=== PATIENT | male | born 1960 | race American Indian/Alaskan Native ===

== ENCOUNTER 2018-02-20 17:31 | Emergency (ER) | payer OTHER, SELFPAY ==
[2018-02-20 18:05] VITALS: BP 131/77; PULSE 91; RESP 20; TEMP 37; O2SAT 97
--- NOTE | 2018-02-20 18:11 | DI.RAD.S_ITS ---
PROCEDURE: XR HAND LT MIN 3V INDICATIONS: smashed 5th digit while throwing wood TECHNIQUE: 3 views of the hand(s) acquired. COMPARISON: None. FINDINGS: Bones: Acute oblique fracture involving midshaft of fifth distal phalanx is seen with minimal volar displacement at fracture site. Carpal bones are normally aligned. No suspicious bony lesions. Soft tissues: No suspicious soft tissue calcifications. Soft tissue swelling around distal portion of fifth digit is seen. IMPRESSION: Acute minimally displaced fifth distal phalangeal shaft fracture. Dictated by: Fernando Arreola M.D. on 02/20/2018 at 19:01 Approved by: Fernando Arreola M.D. on 02/20/2018 at 19:02
--- NOTE | 2018-02-20 21:09 | ED_ITS ---
HPI - Extremity Injury (Upper) General Chief Complaint: Extremity Injury, Upper Stated Complaint: smashed pinky finger left hand Time Seen by Provider: 02/20/18 20:53 Source: patient Mode of arrival: ambulatory Limitations: no limitations History of Present Illness HPI narrative: 57-year-old every day smoker presents to the emergency department with a chief complaint of a work-related crush injury to his left 5th finger. He was moving heavy objects and crushed his finger between a wall and a big chunk of wood. He has pain with range of motion and small laceration on the pad of his finger. He has worsening pain with range of motion and improvement with rest. Denies numbness, tingling or weakness. His tetanus is current. He denies other injury and is otherwise well and free of complaint MD complaint: injury to: left Onset (ago): hour(s) Other Extremity Injury: Left: fingers Other injuries: none Handedness: left Place: work Severity: mild Relieving factors: rest Exacerbating factors: movement of extremity Context: direct blow Associated symptoms: denies other symptoms Related Data Home Medications Medication Instructions Recorded Confirmed levothyroxine 50 mcg PO QAM #0 07/18/17 Previous Rx's Medication Instructions Recorded metoprolol succinate [Toprol XL] 25 mg PO QDAY #30 ter 09/13/16 prazosin 0 PO SEE INSTRUCTIONS #150 cap 12/21/16 lorazepam 0.5 mg PO TIDP #150 tab 03/31/17 nitroglycerin [Nitrostat] 0.4 mg SUBLINGUAL PRN PRN #30 tab 03/31/17 fluoxetine 40 mg PO QDAY #60 cap 05/26/17 hydrocodone-acetaminophen [Clifford] 1 tab PO TIDP PRN #90 tab 06/27/17 cyclobenzaprine 10 mg PO Q8H PRN #10 tab 07/18/17 meloxicam [Mobic] 15 mg PO Q DAY PRN #30 tab 07/18/17 cephalexin [Keflex] 500 mg PO QID 7 Days #28 cap 02/20/18 Allergies Allergy/AdvReac Type Severity Reaction Status Date / Time morphine [MORPHINE] Allergy Severe CONVULSIONS, Verified 02/20/18 18:10 TROUBLE BREATHING codeine [CODEINE] Allergy Mild RASH, Verified 02/20/18 18:10 HIVES, ITCHING meperidine [MEPERIDINE] Allergy Mild NAUSEA, Verified 02/20/18 18:10 ITCHING, HIVES ibuprofen [IBUPROFEN] Allergy Unknown HIVES Verified 02/20/18 18:10 naproxen [NAPROXEN] Allergy Unknown HIVES Verified 02/20/18 18:10 Review of Systems Review of Systems All systems reviewed & are unremarkable except as noted in HPI and below Constitutional Denies chills, Denies fever(s), Denies lethargy and Denies weakness Eyes Denies change in vision, Denies eye discharge, Denies irritation and Denies loss of vision ENT Ears, Nose, Mouth, and Throat: Denies change in voice, Denies neck pain and Denies sore throat Cardiovascular Denies chest pain, Denies irregular heart rhythm, Denies lightheadedness, Denies palpitations, Denies dyspnea, Denies dyspnea on exertion and Denies orthopnea Respiratory Denies cough, Denies dyspnea, Denies dyspnea on exertion and Denies wheezing Gastrointestinal Gastrointestinal: Denies abdominal pain, Denies change in bowel habits, Denies diarrhea, Denies nausea and Denies vomiting Genitourinary Denies hematuria, Denies flank pain, Denies urinary incontinence and Denies urinary urgency Musculoskeletal Reports joint swelling, Reports limited range of motion and Denies neck pain Integumentary/Breasts Denies pruritus, Denies erythema, Denies rash and Reports wounds Neurologic Denies confusion, Denies loss of vision and Denies weakness Psychiatric Denies anxiety, Denies confusion, Denies depression, Denies homicidal ideation and Denies suicidal ideation Endocrine Denies palpitations Hematologic/Lymphatic Denies easy bruising Allergic/Immunologic Denies wheezing [facility] Social History Smoking Status: Current every day smoker Exam Narrative Exam Narrative: GEN: AOx3 and in mild distress EYES: Pupils are equal, round, and reactive to light and accommodation. Extraoccular muscles are intact bilaterally. There is no subconjunctival hemorrhage or exudate. CHEST: Lungs are clear to auscultation bilaterally and free of wheezes, rales, or rhonchi. Heart rate is regular rhythm, there are no murmurs, clicks, rubs, or gallops. There is no chest wall tenderness. ABD: Abdomen is soft and nontender. There is no guarding or rebound. Bowel sounds are normal in all 4 quadrants. There is no mass or organomegaly. EXT: Decreased range of motion of left 5th finger secondary to pain. There is some swelling to the tip of the finger but no damage to the nail. No subungual hematoma. Very small laceration on pad of finger, will not require sutures. SKIN: Warm, pink, and dry. No erythema or rash Initial Vital Signs Initial Vital Signs: Vital Signs Temperature 98.6 F 02/20/18 18:05 Pulse Rate 91 H 02/20/18 18:05 Respiratory Rate 20 02/20/18 18:05 Blood Pressure 131/77 02/20/18 18:05 Pulse Oximetry 97 02/20/18 18:05 Procedures Orthopedic Splinting/Casting Injury #1: Side: left Upper Extremity Injury Location: finger Upper Extremity Immobilizer: finger (other) Course Orders Ordered: ED Orders 02/20/18 18:11 XR hand LT min 3V Stat Discontinued Medications Hydrocodone Bitart/Acetaminophen (Clifford 5/325) 1 tab PO NOW ONE Stop: 02/20/18 21:27 Last Admin: 02/20/18 21:50 Dose: 1 tab Cefazolin Sodium (Keflex) 1 bottle MISC SEEINSTR ONE Stop: 02/20/18 21:06 Last Admin: 02/20/18 21:50 Dose: 2 cap Vital Signs - 8 hr 02/20/18 22:20 Temperature 98.1 F Pulse Rate 66 Respiratory Rate 15 Blood Pressure 123/82 Pulse Oximetry 98 Discharge Plan Departure Patient Disposition: Home Clinical Impression: Finger fracture, left Discharge Date/Time: 02/20/18 22:25 Interventions: ED Discharge Assessment Last Done: 02/20/18 22:20 Instructions: DI for Finger Fracture Activity Restrictions/Additional Instructions: *You have been diagnosed with [ left 5th finger fracture with small overlying laceration ] *What to do: *Take medications as directed: Your Keflex has been electronically transmitted to [facility] at your request *Follow up with your primary care provider in 2-3 days, call for an appointment. Let them know you were seen in the Emergency Department and that we ask that you be seen in follow up *Return to ER if you should have any new, worsening or concerning symptoms Prescriptions: New cephalexin [Keflex] 500 mg capsule 500 mg PO QID 7 Days Qty: 28 RF: 0 No Action metoprolol succinate [Toprol XL] 25 MG tablet extended release 24 hr 25 mg PO QDAY Qty: 30 RF: 11 prazosin 1 MG capsule PO SEE INSTRUCTIONS Qty: 150 RF: 5 nitroglycerin [Nitrostat] 0.4 MG tablet, sublingual 0.4 mg Sublingual PRN PRNQty: 30 RF: 11 lorazepam 0.5 MG tablet 0.5 mg PO TIDP Qty: 150 RF: 2 fluoxetine 20 MG capsule 40 mg PO QDAY Qty: 60 RF: 2 hydrocodone-acetaminophen [Clifford] 5 MG/325 MG tablet 1 tab PO TIDP PRNQty: 90 RF: 0 cyclobenzaprine 10 MG tablet 10 mg PO Q8H PRNQty: 10 RF: 0 meloxicam [Mobic] 15 MG tablet 15 mg PO Q DAY PRNQty: 30 RF: 0 levothyroxine 50 MCG tablet 50 mcg PO QAM Qty: 0 RF: 0 Referrals: Chance Stuart MD [Primary Care Provider] - Chad Marmolejo MD [Physician] - Stand Alone Forms: Work/School Restrictions
[2018-02-20] MEDS: cephALEXin 250 MG PREPACK 1 BOTTLE MISC (21:50)
[2018-02-20] MEDS: HYDROCODONE/ACET 5/325 TABLET 1 TAB PO (21:50)
[2018-02-20 22:20] VITALS: BP 123/82; PULSE 66; RESP 15; TEMP 36.7; O2SAT 98
== END 2018-02-20 22:25 | disposition home or self-care (01) ==
PROVIDERS: Emergency Provider Emergency Medicine; Family Provider Family Medicine; PCP Family Medicine
DX: S62.607A Fracture of unspecified phalanx of left little finger, initial encounter for closed fracture (principal); W23.0XXA Caught, crushed, jammed, or pinched between moving objects, initial encounter
CPT/HCPCS: 29130; 73130; 99282; 99283

== ENCOUNTER → 2018-05-09 10:29 | Outpatient (CLI) | payer MEDICAID, OTHER, SELFPAY ==
--- NOTE | 2018-05-09 | DI.RAD.S_ITS ---
PROCEDURE: XR FINGER LT MIN 2V INDICATIONS: L 5TH FINGER S/P FRACTURE, PERSISTENT PAIN TECHNIQUE: AP hand, 2 views of the fifth finger(s) acquired. COMPARISON: [facility], CR, XR FINGER(S) LEFT, 04/27/2018, 8:25. [facility], CR, XR HAND LT MIN 3V, 02/20/2018, 17:57. [facility], CR, XR FINGER(S) LEFT, 03/07/2018, 13:25. [facility], CR, XR FINGER LT MIN 2V, 08/30/2017, 13:30. FINDINGS: Bones: Oblique fracture through the midportion of the distal fifth phalanx is present. There is diastases of fracture fragments, relatively unchanged. There has been progressive sclerosis and callus formation. Soft tissues: No suspicious soft tissue calcifications. IMPRESSION: Continued interval healing of fifth distal phalanx fracture. Dictated by: Rosa Portillo M.D. on 05/09/2018 at 17:11 Approved by: Rosa Portillo M.D. on 05/09/2018 at 17:13
== END ==
PROVIDERS: Family Provider Family Medicine; Visit Provider Family Medicine
DX: M79.645 Pain in left finger(s) (principal); S62.637D Displaced fracture of distal phalanx of left little finger, subsequent encounter for fracture with routine healing
CPT/HCPCS: 73140

== ENCOUNTER 2018-05-13 21:43 | Emergency (ER) | payer MEDICAID, OTHER, SELFPAY ==
[2018-05-13 21:45] VITALS: BP 135/81; PULSE 74; RESP 17; TEMP 36.8; O2SAT 95; BMI 23.1
--- NOTE | 2018-05-13 21:54 | DI.RAD.S_ITS ---
PROCEDURE: XR CHEST 1V INDICATIONS: chest pain TECHNIQUE: One view of the chest was acquired. COMPARISON: [facility], , CHEST 2 VIEW, 09/06/2015, 18:16. FINDINGS: Surgical changes and devices: None. Lungs and pleura: No pleural effusions or pneumothorax. Lungs are clear. Mediastinum: Mediastinal contours appear normal. Heart size is normal. Bones and chest wall: No suspicious bony lesions. Overlying soft tissues appear unremarkable. IMPRESSION: No acute cardiopulmonary pathology. Dictated by: Fernando Arreola M.D. on 05/14/2018 at 10:04 Approved by: Fernando Arreola M.D. on 05/14/2018 at 10:04
--- NOTE | 2018-05-13 21:54 | DI.RAD.S_ITS ---
PROCEDURE: XR LUMBAR SPINE 2-3V INDICATIONS: severe midline back pain TECHNIQUE: 3 views of the lumbar spine were acquired. COMPARISON: [facility], , L-SPINE 2-3 VIEWS, 09/06/2015, 18:09. FINDINGS: Bones: 5 [id number] vertebrae are present. There is minimal retrolisthesis of L2 on L3. Degenerative disc disease and bilateral facet arthrosis throughout lumbar spine is seen more prominent at L4-5 and L5-S1 levels. No vertebral body compression fractures. No suspicious bony lesions. Chronic appearing anterior wedge compression deformity at T12 level is seen with 10% loss of T12 vertebral body height anteriorly. Soft tissues: Overlying bowel gas pattern is normal. No suspicious soft tissue calcifications. IMPRESSION: Degenerative disc disease throughout lumbar spine. No acute compression fracture. Likely degenerative grade 1 retrolisthesis of L2 on L3. Chronic appearing mild anterior wedge compression involving superior endplate of T12. Dictated by: Fernando Arreola M.D. on 05/14/2018 at 10:04 Approved by: Fernando Arreola M.D. on 05/14/2018 at 10:07
--- NOTE | 2018-05-13 21:58 | ED_ITS ---
HPI - Back Pain/Injury General Chief Complaint: Chest Pain Stated Complaint: cramps in chest and back pain Time Seen by Provider: 05/13/18 21:51 Source: patient Mode of arrival: wheelchair Limitations: no limitations History of Present Illness HPI Narrative: 58-year-old male, daily smoker with history of heart and back trouble presents with severe back pain that started while dancing this evening with friends and family. He denies any specific direct trauma but complains of severe lower back pain with any motion. He has no trouble with bowel or bladder control. He denies numbness, tingling or weakness. His pain is worse when he moves and improves with rest. He does have some chest pain associated and states this has been happening for some time. He denies shortness of breath and is not dizzy nor weak or lightheaded. He has already had Vicodin, marijuana and some kind of muscle relaxer. MD Complaint: back pain Onset (ago): minute(s) Duration: constant Similar Symptoms Previously: Yes Location: lumbar spine Severity: moderate Quality: aching Radiation: none Relieving factors: immobilization Exacerbating factors: movement Related Data Home Medications Medication Instructions Recorded Confirmed levothyroxine 50 mcg PO QAM #0 07/18/17 Previous Rx's Medication Instructions Recorded metoprolol succinate [Toprol XL] 25 mg PO QDAY #30 ter 09/13/16 prazosin 0 PO SEE INSTRUCTIONS #150 cap 12/21/16 lorazepam 0.5 mg PO TIDP #150 tab 03/31/17 nitroglycerin [Nitrostat] 0.4 mg SUBLINGUAL PRN PRN #30 tab 03/31/17 fluoxetine 40 mg PO QDAY #60 cap 05/26/17 hydrocodone-acetaminophen [[place]] 1 tab PO TIDP PRN #90 tab 06/27/17 cyclobenzaprine 10 mg PO Q8H PRN #10 tab 07/18/17 meloxicam [Mobic] 15 mg PO Q DAY PRN #30 tab 07/18/17 lidocaine 1 patch TOP DAILY #15 each 05/14/18 Allergies Allergy/AdvReac Type Severity Reaction Status Date / Time morphine [MORPHINE] Allergy Severe CONVULSIONS, Verified 02/20/18 18:10 TROUBLE BREATHING codeine [CODEINE] Allergy Mild RASH, Verified 02/20/18 18:10 HIVES, ITCHING meperidine [MEPERIDINE] Allergy Mild NAUSEA, Verified 02/20/18 18:10 ITCHING, HIVES ibuprofen [IBUPROFEN] Allergy Unknown HIVES Verified 02/20/18 18:10 naproxen [NAPROXEN] Allergy Unknown HIVES Verified 02/20/18 18:10 Review of Systems Constitutional Denies chills, Denies fever(s), Denies lethargy and Denies weakness Eyes Denies change in vision, Denies eye discharge, Denies irritation and Denies loss of vision ENT Ears, Nose, Mouth, and Throat: Denies change in voice, Denies neck pain and Denies sore throat Cardiovascular Reports chest pain, Denies irregular heart rhythm, Denies lightheadedness, Denies palpitations, Denies dyspnea, Denies dyspnea on exertion and Denies orthopnea Respiratory Denies cough, Denies dyspnea, Denies dyspnea on exertion and Denies wheezing Gastrointestinal Gastrointestinal: Denies abdominal pain, Denies change in bowel habits, Denies diarrhea, Denies nausea and Denies vomiting Genitourinary Denies hematuria, Denies flank pain, Denies urinary incontinence and Denies urinary urgency Musculoskeletal Reports back pain and Denies neck pain Integumentary/Breasts Denies pruritus, Denies erythema, Denies rash and Denies wounds Neurologic Denies confusion, Denies loss of vision and Denies weakness Psychiatric Denies anxiety, Denies confusion, Denies depression, Denies homicidal ideation and Denies suicidal ideation Endocrine Denies palpitations Hematologic/Lymphatic Denies easy bruising Allergic/Immunologic Denies wheezing [facility] Social History Smoking Status: Current every day smoker Exam Narrative Exam Narrative: GENERAL: 58-year-old male is somnalent but easily arousable HEAD: Atraumatic. Normocephalic. No temporal or scalp tenderness. EYES: Pupils equal round and reactive. Extraocular motions intact. No scleral icterus. No injection or drainage. ENT: Nose without bleeding, purulent drainage or septal hematoma. Throat without erythema, tonsillar hypertrophy or exudate. Uvula midline. Airway patent. NECK: Trachea midline. No JVD or lymphadenopathy. Supple, nontender, no meningeal signs. CARDIOVASCULAR: Regular rate and rhythm without murmurs, gallops, or rubs. RESPIRATORY: Clear to auscultation. Breath sounds equal bilaterally. No wheezes , rales, or rhonchi. GASTROINTESTINAL: Abdomen soft, non-tender, nondistended. No hepato-splenomegaly , or palpable masses. No guarding. EXTREMITIES: No clubbing, cyanosis, or edema. No joint tenderness, effusion, or edema noted. 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 Patient exam notes decreased range of motion and muscle spasm, but no CVA tenderness, or vertebral point tenderness. There are no symptoms of cauda equina such as saddle anesthesia, and decreased reflexes, decreased sensation or strength. NEURO: AOx3. SKIN: No rash or erythema. Initial Vital Signs Initial Vital Signs: Vital Signs Temperature 98.2 F 05/13/18 21:45 Pulse Rate 74 05/13/18 21:45 Respiratory Rate 17 05/13/18 21:45 Blood Pressure 135/81 05/13/18 21:45 Pulse Oximetry 95 05/13/18 21:45 Course Orders Ordered: ED Orders 05/13/18 21:54 XR chest 1V Stat XR lumbar spine 2-3V Stat EKG-12 Lead Stat 05/13/18 22:10 Complete Blood Count AUTO DIFF Stat Comprehensive Metabolic Panel Stat Lipase Stat Troponin & CK Cardiac Panel Stat Discontinued Medications Aspirin (Aspirin Chew) 324 mg PO NOW ONE Stop: 05/13/18 21:55 Last Admin: 05/13/18 22:25 Dose: 324 mg Sodium Chloride (Normal Saline 0.9%) 1,000 mls @ 150 mls/hr IV CONT GREY Last Infusion: 05/14/18 01:04 Dose: 0 mls/hr Admin: 05/13/18 22:24 Dose: 150 mls/hr Ketorolac Tromethamine (Toradol) 15 mg IV NOW ONE Stop: 05/14/18 00:06 Last Admin: 05/14/18 00:14 Dose: 15 mg Vital Signs - 8 hr 05/14/18 01:05 Pulse Rate 66 Respiratory Rate 17 Blood Pressure 128/77 Pulse Oximetry 96 MDM - Back Pain/Injury Lab Data Result diagrams: 05/13/18 22:10 05/13/18 22:10 Lab Results 05/13/18 05/13/18 Range/Units 22:10 22:10 WBC 10.3 (4.5-11.0) X10^3/uL RBC 4.65 (4.5-5.9) X10^6/uL Hgb 13.8 (13.5-17.5) g/dL Hct 40.5 L (41-53) % MCV 87.0 (80-100) fL MCH 29.7 (26-34) PG MCHC 34.2 (30-36) % RDW 13.9 (11.6-14.8) % Plt Count 319 (150-400) X10^3/uL Neut % (Auto) 59.4 (50-75) % Lymph % (Auto) 33.8 (25-40) % [place] % (Auto) 5.1 (3-14) % Eos % (Auto) 1.0 L (2-4) % Baso % (Auto) 0.7 (0-2) % Neut # (Auto) 6100 (0246-4708) /uL Lymph # (Auto) 3500 (9251-0638) /uL [place] # (Auto) 500 (0-900) /uL Eos # (Auto) 100 (0-450) /uL Baso # (Auto) 100 (0-100) /uL Sodium 143 (137-145) mmol/L Potassium 3.9 (3.4-5.1) mmol/L Chloride 104 (98-107) mmol/L Carbon Dioxide 27 (22-32) mmol/L BUN 14 (9-20) mg/dL Creatinine 1.00 (0.66-1.25) mg/dL Estimated GFR > 60.0 (>60) mL/min BUN/Creatinine Ratio 14.0 (6-22) Glucose 97 (70-100) mg/dL Calcium 9.1 (8.4-10.2) mg/dL Total Bilirubin 0.4 (0.2-1.3) mg/dL AST 26 (17-59) IU/L ALT 26 (21-72) IU/L Alkaline Phosphatase 79 (38-126) U/L Total Creatine Kinase 131 (55-170) U/L CK-MB (CK-2) 1.82 (<2.37) ng/mL CK-MB (CK-2) Rel Index 1.4 L (1.5-5.0) % Troponin I < 0.012 (0.01-0.034) ng/mL Total Protein 7.9 (6.3-8.2) g/dL Albumin 4.2 (3.5-5.0) g/dL Globulin 3.7 (1.7-4.1) g/dL Albumin/Globulin Ratio 1.1 (1.0-2.8) Lipase 160 (23-300) U/L Discharge Plan Departure Patient Disposition: Home Clinical Impression: Lumbar back pain Discharge Date/Time: 05/14/18 01:00 Interventions: ED Discharge Assessment Last Done: 05/14/18 01:05 Instructions: DI for Low Back Pain Activity Restrictions/Additional Instructions: *You have been diagnosed with [ lumbar pain ] *What to do: *Take medications as directed: prescription electronically transmitted to [facility] *Follow up with your primary care provider in 2-3 days, call for an appointment. Let them know you were seen in the Emergency Department and that we ask that you be seen in follow up *Return to ER if you should have any new, worsening or concerning symptoms Prescriptions: New lidocaine 5 % adhesive patch,medicated 1 patch TOP DAILY Qty: 15 RF: 0 No Action metoprolol succinate [Toprol XL] 25 MG tablet extended release 24 hr 25 mg PO QDAY Qty: 30 RF: 11 prazosin 1 MG capsule PO SEE INSTRUCTIONS Qty: 150 RF: 5 nitroglycerin [Nitrostat] 0.4 MG tablet, sublingual 0.4 mg Sublingual PRN PRNQty: 30 RF: 11 lorazepam 0.5 MG tablet 0.5 mg PO TIDP Qty: 150 RF: 2 fluoxetine 20 MG capsule 40 mg PO QDAY Qty: 60 RF: 2 hydrocodone-acetaminophen [[place]] 5 MG/325 MG tablet 1 tab PO TIDP PRNQty: 90 RF: 0 cyclobenzaprine 10 MG tablet 10 mg PO Q8H PRNQty: 10 RF: 0 meloxicam [Mobic] 15 MG tablet 15 mg PO Q DAY PRNQty: 30 RF: 0 levothyroxine 50 MCG tablet 50 mcg PO QAM Qty: 0 RF: 0 Referrals: Chance Stuart MD [Primary Care Provider] -
[2018-05-13 22:18] LABS: Add Manual Diff / Slide Review NO; Basophils Absolute Auto 100 /uL (0-100); Basophils Percent Auto 0.7 % (0-2); Eosinophils Absolute Auto 100 /uL (0-450); Hematocrit 40.5 % (41-53); Hemoglobin 13.8 g/dL (13.5-17.5); Lymphocytes Absolute Auto 3500 /uL (1100-4500); Lymphocytes Percent Auto 33.8 % (25-40); Mean Corpuscular HGB Conc 34.2 % (30-36); Mean Corpuscular Hemoglobin 29.7 PG (26-34); Monocytes Absolute Auto 500 /uL (0-900); Monocytes Percent Auto 5.1 % (3-14); Neutrophils Absolute Auto 6100 /uL (1500-7000); Neutrophils Percent Auto 59.4 % (50-75); Platelet Count 319 X10^3/uL (150-400); Red Blood Cell Count 4.65 X10^6/uL (4.5-5.9); Red Cell Distribution Width 13.9 % (11.6-14.8); White Blood Cell Count 10.3 X10^3/uL (4.5-11.0)
[2018-05-13] MEDS: SODIUM CHLORIDE 0.9% 1,000 ML 150 ML IV (22:24)
[2018-05-13] MEDS: ASPIRIN 81 MG TAB 324 MG PO (22:25)
[2018-05-13 22:29] LABS: Alanine Aminotransferase 26 IU/L (21-72); Albumin 4.2 g/dL (3.5-5.0); Albumin Globulin Ratio 1.1 (1.0-2.8); Alkaline Phosphatase 79 U/L (38-126); Aspartate Aminotransferase 26 IU/L (17-59); Bilirubin Total 0.4 mg/dL (0.2-1.3); Blood Urea Nitrogen 14 mg/dL (9-20); Calcium 9.1 mg/dL (8.4-10.2); Carbon Dioxide 27 mmol/L (22-32); Chloride 104 mmol/L (98-107); Creatine Kinase 131 U/L (55-170); Estimated Glomerular Filt Rate > 60.0 mL/min (>60); Globulin 3.7 g/dL (1.7-4.1); Glucose 97 mg/dL (70-100); HEMOLYSIS < 15 (0-50); Lipase 160 U/L (23-300); Potassium 3.9 mmol/L (3.4-5.1); Sodium 143 mmol/L (137-145); Total Protein 7.9 g/dL (6.3-8.2)
[2018-05-13 22:41] LABS: Troponin I < 0.012 ng/mL (0.01-0.034)
[2018-05-13 22:44] LABS: CKMB % Relative Index 1.4 % (1.5-5.0); Creatine Kinase MB 1.82 ng/mL (<2.37)
[2018-05-14] MEDS: KETOROLAC 60 MG/2 ML VIAL 15 MG IV (00:14)
[2018-05-14 01:05] VITALS: BP 128/77; PULSE 66; RESP 17; O2SAT 96
== END 2018-05-14 01:00 | disposition home or self-care (01) ==
PROVIDERS: Emergency Provider Emergency Medicine; Family Provider Family Medicine; PCP Family Medicine
DX: M54.5 Low back pain (principal)
CPT/HCPCS: 36591; 71045; 72100; 80053; 82550; 82553; 83690; 84484; 85025; 93005; 93010; 96361; 96374; 99283; 99285; J1885

== ENCOUNTER 2018-05-19 23:20 | Emergency (ER) | payer MEDICAID, OTHER, SELFPAY ==
[2018-05-19 23:25] VITALS: BP 118/65; PULSE 72; RESP 18; TEMP 36.6; O2SAT 100
[2018-05-19] MEDS: NALOXONE 1 MG/ML SYRINGE 0.2 MG IV (23:47)
[2018-05-19] MEDS: SODIUM CHLORIDE 0.9% 1,000 ML 1000 ML IV (23:47)
[2018-05-20 00:08] LABS: Add Manual Diff / Slide Review NO; Basophils Absolute Auto 0 /uL (0-100); Basophils Percent Auto 0.4 % (0-2); Eosinophils Absolute Auto 300 /uL (0-450); Eosinophils Percent Auto 3.2 % (2-4); Hematocrit 38.8 % (41-53); Hemoglobin 13.3 g/dL (13.5-17.5); Lymphocytes Absolute Auto 2300 /uL (1100-4500); Lymphocytes Percent Auto 21.5 % (25-40); Mean Corpuscular HGB Conc 34.2 % (30-36); Mean Corpuscular Hemoglobin 29.7 PG (26-34); Mean Corpuscular Volume 86.7 fL (80-100); Monocytes Absolute Auto 600 /uL (0-900); Monocytes Percent Auto 5.6 % (3-14); Neutrophils Absolute Auto 7400 /uL (1500-7000); Neutrophils Percent Auto 69.3 % (50-75); Platelet Count 277 X10^3/uL (150-400); Red Blood Cell Count 4.47 X10^6/uL (4.5-5.9); Red Cell Distribution Width 13.9 % (11.6-14.8); White Blood Cell Count 10.7 X10^3/uL (4.5-11.0)
[2018-05-20 00:13] LABS: Lactate (Lactic Acid) < 0.5 mmol/L (0.7-2.1)
[2018-05-20 00:14] LABS: Acetaminophen < 10 ug/mL (10-30); Alanine Aminotransferase 24 IU/L (21-72); Albumin Globulin Ratio 1.2 (1.0-2.8); Alkaline Phosphatase 85 U/L (38-126); Aspartate Aminotransferase 26 IU/L (17-59); BUN Creatinine Ratio 13.8 (6-22); Bilirubin Total 0.6 mg/dL (0.2-1.3); Blood Urea Nitrogen 11 mg/dL (9-20); Calcium 8.6 mg/dL (8.4-10.2); Carbon Dioxide 27 mmol/L (22-32); Chloride 103 mmol/L (98-107); Estimated Glomerular Filt Rate > 60.0 mL/min (>60); Ethanol (ETOH) < 10 mg/dL; Globulin 3.4 g/dL (1.7-4.1); Glucose 97 mg/dL (70-100); HEMOLYSIS < 15 (0-50); Potassium 3.8 mmol/L (3.4-5.1); Salicylate < 1.0 mg/dL (<20); Sodium 138 mmol/L (137-145); Total Protein 7.4 g/dL (6.3-8.2)
[2018-05-20 00:26] LABS: Lipase 96 U/L (23-300)
[2018-05-20 01:20] VITALS: BP 94/56; PULSE 69; RESP 19; O2SAT 95
[2018-05-20 02:08] VITALS: BP 101/69; PULSE 59; RESP 12; O2SAT 95
[2018-05-20 03:12] VITALS: BP 118/60; PULSE 60; RESP 18; O2SAT 98
[2018-05-20 04:10] VITALS: BP 99/66; PULSE 66; RESP 21; TEMP 36.3; O2SAT 94
--- NOTE | 2018-05-20 05:09 | ED.AMS ---
HPI - Altered Mental Status General Chief Complaint: Altered Mental Status Stated Complaint: LOC Time Seen by Provider: 05/19/18 23:37 Source: patient and EMS Mode of arrival: EMS History of Present Illness HPI narrative: Patient is a 58-year-old male who presents with decreasing mental status. He admits to using heroin and smokes it but denies using recently. He is is part of the methadone clinic he went today. noticed that he had decreasing mental status. Awake alert not requiring Narcan for EMS. His he is tired but easily arousable. He is very thin. He denies any fever chills nausea or vomiting. He is an extremely poor historian. Difficult to get information from. MD complaint: altered mental status and confusion Related Data Home Medications Medication Instructions Recorded Confirmed levothyroxine 50 mcg PO QAM #0 07/18/17 Previous Rx's Medication Instructions Recorded metoprolol succinate [Toprol XL] 25 mg PO QDAY #30 ter 09/13/16 prazosin 0 PO SEE INSTRUCTIONS #150 cap 12/21/16 lorazepam 0.5 mg PO TIDP #150 tab 03/31/17 nitroglycerin [Nitrostat] 0.4 mg SUBLINGUAL PRN PRN #30 tab 03/31/17 fluoxetine 40 mg PO QDAY #60 cap 05/26/17 hydrocodone-acetaminophen [[place]] 1 tab PO TIDP PRN #90 tab 06/27/17 cyclobenzaprine 10 mg PO Q8H PRN #10 tab 07/18/17 meloxicam [Mobic] 15 mg PO Q DAY PRN #30 tab 07/18/17 lidocaine 1 patch TOP DAILY #15 each 05/14/18 Allergies Allergy/AdvReac Type Severity Reaction Status Date / Time morphine [MORPHINE] Allergy Severe CONVULSIONS, Verified 02/20/18 18:10 TROUBLE BREATHING codeine [CODEINE] Allergy Mild RASH, Verified 02/20/18 18:10 HIVES, ITCHING meperidine [MEPERIDINE] Allergy Mild NAUSEA, Verified 02/20/18 18:10 ITCHING, HIVES ibuprofen [IBUPROFEN] Allergy Unknown HIVES Verified 02/20/18 18:10 naproxen [NAPROXEN] Allergy Unknown HIVES Verified 02/20/18 18:10 Review of Systems Review of Systems ROS Unobtainable: All systems reviewed & are unremarkable except as noted in HPI and below Constitutional Denies chills, Denies fever(s), Denies lethargy and Denies weakness Cardiovascular Denies dyspnea and Denies dyspnea on exertion Respiratory Denies cough, Denies dyspnea, Denies dyspnea on exertion and Denies wheezing Gastrointestinal Gastrointestinal: Denies abdominal pain, Denies change in bowel habits, Denies diarrhea, Denies nausea and Denies vomiting Musculoskeletal Denies back pain, Denies muscle weakness, Denies numbness and Denies tingling Integumentary/Breasts Denies pruritus, Denies erythema, Denies rash and Denies wounds Neurologic Denies numbness, Denies tingling and Denies weakness Allergic/Immunologic Denies wheezing Exam Initial Vital Signs Initial Vital Signs: Vital Signs Temperature 97.9 F 05/19/18 23:25 Pulse Rate 72 05/19/18 23:25 Respiratory Rate 18 05/19/18 23:25 Blood Pressure 118/65 05/19/18 23:25 Pulse Oximetry 100 05/19/18 23:25 Const General: cooperative and intoxicated appearing Nutritional Appearance: malnourished Orientation: alert, awake and oriented x3 HENMT Head: normal to inspection, normocephalic and atraumatic Nose: external nose normal Mouth: oral mucosae normal Eyes General: appearance normal, both eyes and all related structures Neck Neck: normal visual inspection and full ROM Chest Chest: normal inspection of the chest and normal palpation of entire chest wall Resp Effort & Inspection: normal respiratory effort, able to speak in complete sentences, no respiratory distress and no use of accessory muscles Auscultation: clear to auscultation bilaterally, no rales, no rhonchi and no wheezes Cardio Rate: regular rate Rhythm: regular rhythm Heart Sounds: no click, no gallops, no murmurs and no rubs Pulses: normal peripheral pulses Extrem General: full ROM, no clubbing, cyanosis or edema, no pedal edema and no calf tenderness Course Orders Ordered: ED Orders 05/19/18 23:50 Acetaminophen Stat Complete Blood Count AUTO DIFF Stat Comprehensive Metabolic Panel Stat Ethanol (ETOH) Stat Lactate (Lactic Acid) Stat Lipase Stat Salicylate Stat 05/20/18 05:20 Urine Drug Screen, Rapid Stat Discontinued Medications Sodium Chloride (Normal Saline 0.9%) 1,000 mls @ 1,000 mls/hr IV CONT GREY Last Infusion: 05/20/18 03:44 Dose: 0 mls/hr Admin: 05/19/18 23:47 Dose: 1,000 mls/hr Naloxone HCl (Narcan) 0.2 mg IV PRN PRN PRN Reason: Opiate Reversal Last Admin: 05/19/18 23:47 Dose: 0.2 mg Vital Signs - 8 hr 05/19/18 23:25 05/20/18 01:20 05/20/18 02:08 Temperature 97.9 F Pulse Rate 72 69 59 L Respiratory Rate 18 19 12 Blood Pressure 118/65 Blood Pressure [Left Arm] 94/56 L 101/69 Pulse Oximetry 100 95 95 05/20/18 03:12 05/20/18 04:10 05/20/18 05:30 Temperature 97.3 F L Pulse Rate 60 66 64 Respiratory Rate 18 21 17 Blood Pressure Blood Pressure [Left Arm] 118/60 99/66 113/63 Pulse Oximetry 98 94 94 MDM - Altered Mental Status Lab Data Attestation: I reviewed the patient's lab results. Result diagrams: 05/19/18 23:50 05/19/18 23:50 Lab Results 05/19/18 05/19/18 05/19/18 Range/Units 23:50 23:50 23:50 WBC 10.7 (4.5-11.0) X10^3/uL RBC 4.47 L (4.5-5.9) X10^6/uL Hgb 13.3 L (13.5-17.5) g/dL Hct 38.8 L (41-53) % MCV 86.7 (80-100) fL MCH 29.7 (26-34) PG MCHC 34.2 (30-36) % RDW 13.9 (11.6-14.8) % Plt Count 277 (150-400) X10^3/uL Neut % (Auto) 69.3 (50-75) % Lymph % (Auto) 21.5 L (25-40) % [place] % (Auto) 5.6 (3-14) % Eos % (Auto) 3.2 (2-4) % Baso % (Auto) 0.4 (0-2) % Neut # (Auto) 7400 H (6726-4192) /uL Lymph # (Auto) 2300 (1620-0350) /uL [place] # (Auto) 600 (0-900) /uL Eos # (Auto) 300 (0-450) /uL Baso # (Auto) 0 (0-100) /uL Sodium 138 (137-145) mmol/L Potassium 3.8 (3.4-5.1) mmol/L Chloride 103 (98-107) mmol/L Carbon Dioxide 27 (22-32) mmol/L BUN 11 (9-20) mg/dL Creatinine 0.80 (0.66-1.25) mg/dL Estimated GFR > 60.0 (>60) mL/min BUN/Creatinine Ratio 13.8 (6-22) Glucose 97 (70-100) mg/dL Lactate (0.7-2.1) mmol/L Calcium 8.6 (8.4-10.2) mg/dL Total Bilirubin 0.6 (0.2-1.3) mg/dL AST 26 (17-59) IU/L ALT 24 (21-72) IU/L Alkaline Phosphatase 85 (38-126) U/L Total Protein 7.4 (6.3-8.2) g/dL Albumin 4.0 (3.5-5.0) g/dL Globulin 3.4 (1.7-4.1) g/dL Albumin/Globulin Ratio 1.2 (1.0-2.8) Lipase 96 (23-300) U/L Salicylates < 1.0 (<20) mg/dL Urine Opiates Screen (Negative) Ur Oxycodone Screen (Negative) Urine Methadone Screen (Negative) Acetaminophen < 10 L (10-30) ug/mL Ur Barbiturates Screen (Negative) U Tricyclic Antidepress (Negative) Ur Phencyclidine Scrn (Negative) Ur Amphetamines Screen (Negative) U Methamphetamines Scrn (Negative) Ur MDMA Scrn (Ecstasy) (Negative) U Benzodiazepines Scrn (Negative) Urine Cocaine Screen (Negative) U Marijuana (THC) Screen (Negative) Ethyl Alcohol < 10 mg/dL 05/19/18 05/20/18 Range/Units 23:50 05:20 WBC (4.5-11.0) X10^3/uL RBC (4.5-5.9) X10^6/uL Hgb (13.5-17.5) g/dL Hct (41-53) % MCV (80-100) fL MCH (26-34) PG MCHC (30-36) % RDW (11.6-14.8) % Plt Count (150-400) X10^3/uL Neut % (Auto) (50-75) % Lymph % (Auto) (25-40) % [place] % (Auto) (3-14) % Eos % (Auto) (2-4) % Baso % (Auto) (0-2) % Neut # (Auto) (9368-2884) /uL Lymph # (Auto) (6527-7813) /uL [place] # (Auto) (0-900) /uL Eos # (Auto) (0-450) /uL Baso # (Auto) (0-100) /uL Sodium (137-145) mmol/L Potassium (3.4-5.1) mmol/L Chloride (98-107) mmol/L Carbon Dioxide (22-32) mmol/L BUN (9-20) mg/dL Creatinine (0.66-1.25) mg/dL Estimated GFR (>60) mL/min BUN/Creatinine Ratio (6-22) Glucose (70-100) mg/dL Lactate < 0.5 L (0.7-2.1) mmol/L Calcium (8.4-10.2) mg/dL Total Bilirubin (0.2-1.3) mg/dL AST (17-59) IU/L ALT (21-72) IU/L Alkaline Phosphatase (38-126) U/L Total Protein (6.3-8.2) g/dL Albumin (3.5-5.0) g/dL Globulin (1.7-4.1) g/dL Albumin/Globulin Ratio (1.0-2.8) Lipase (23-300) U/L Salicylates (<20) mg/dL Urine Opiates Screen Negative (Negative) Ur Oxycodone Screen Negative (Negative) Urine Methadone Screen Positive H (Negative) Acetaminophen (10-30) ug/mL Ur Barbiturates Screen Negative (Negative) U Tricyclic Antidepress Negative (Negative) Ur Phencyclidine Scrn Negative (Negative) Ur Amphetamines Screen Negative (Negative) U Methamphetamines Scrn Negative (Negative) Ur MDMA Scrn (Ecstasy) Negative (Negative) U Benzodiazepines Scrn Negative (Negative) Urine Cocaine Screen Negative (Negative) U Marijuana (THC) Screen Positive H (Negative) Ethyl Alcohol mg/dL MDM Narrative Medical decision making narrative: The patient was given a small dose of Narcan. He was set up to the CO2 monitor initial readings were 47. After the small dose of Narcan it did drop to 30's-40's. I did speak with she was highly suspicious of more opiate use. At this time it did not have his drug screen back. Based on symptoms and his mild improvement in Narcan I would also agree however methadone can also react to this as well. At this time patient is ambulatory to the restroom no sign of infection or other source of change in mental status. The he has no focal or signs more data head CT. Discharge Plan Departure Patient Disposition: Home Clinical Impression: Acute metabolic encephalopathy Discharge Date/Time: 05/20/18 05:45 Interventions: ED Discharge Assessment Last Done: 05/20/18 06:09 Instructions: DI for Drug Overdose in Adults Activity Restrictions/Additional Instructions: *You have been diagnosed with change in mental status now resolved *What to do: Blood work does not show any source of infection *Continue to take medications as directed *Follow up with your primary care provider in 2-3 days *Return to ER if you should have any new, worsening or concerning symptoms Prescriptions: No Action metoprolol succinate [Toprol XL] 25 MG tablet extended release 24 hr 25 mg PO QDAY Qty: 30 RF: 11 prazosin 1 MG capsule PO SEE INSTRUCTIONS Qty: 150 RF: 5 nitroglycerin [Nitrostat] 0.4 MG tablet, sublingual 0.4 mg Sublingual PRN PRNQty: 30 RF: 11 lorazepam 0.5 MG tablet 0.5 mg PO TIDP Qty: 150 RF: 2 fluoxetine 20 MG capsule 40 mg PO QDAY Qty: 60 RF: 2 hydrocodone-acetaminophen [[place]] 5 MG/325 MG tablet 1 tab PO TIDP PRNQty: 90 RF: 0 cyclobenzaprine 10 MG tablet 10 mg PO Q8H PRNQty: 10 RF: 0 meloxicam [Mobic] 15 MG tablet 15 mg PO Q DAY PRNQty: 30 RF: 0 levothyroxine 50 MCG tablet 50 mcg PO QAM Qty: 0 RF: 0 lidocaine 5 % adhesive patch,medicated 1 patch TOP DAILY Qty: 15 RF: 0
[2018-05-20 05:30] VITALS: BP 113/63; PULSE 64; RESP 17; O2SAT 94
[2018-05-20 06:40] LABS: Urine Amphetamines Negative (Negative); Urine Barbiturates Negative (Negative); Urine Benzodiazepines Negative (Negative); Urine Cocaine Negative (Negative); Urine MDMA Negative (Negative); Urine Methadone Positive (Negative); Urine Methamphetamines Negative (Negative); Urine Morphine/Opi cutoff 2000 Negative (Negative); Urine Oxycodone Negative (Negative); Urine Phencyclidine Negative (Negative); Urine Tetrahydrocannabinol Positive (Negative); Urine Tricyclic Antidepressant Negative (Negative)
== END 2018-05-20 05:45 | disposition home or self-care (01) ==
PROVIDERS: Emergency Provider Emergency Medicine; Family Provider Family Medicine; PCP Family Medicine
DX: G93.41 Metabolic encephalopathy (principal)
CPT/HCPCS: 36415; 80053; 80305; 80320; 80329; 83605; 83690; 85025; 96361; 96374; 99283; 99284; G0480; J2310

== ENCOUNTER 2018-08-25 12:23 | Emergency (ER) | payer MEDICAID, OTHER, SELFPAY ==
[2018-08-25 12:27] VITALS: BP 113/81; PULSE 66; RESP 18; TEMP 36.7; O2SAT 97
--- NOTE | 2018-08-25 12:39 | DI.CT.S_ITS ---
PROCEDURE: CT LUMBAR SPINE WO CON INDICATIONS: lumbar pain, possible injury TECHNIQUE: Noncontrast 3 mm thick sections acquired from the T12 level to the sacrum. Sagittal and coronal reformats were constructed. For radiation dose reduction, the following was used: automated exposure control. COMPARISON: [facility], CT, KIDNEY/ URETER/BLADDER, 07/18/2017, 11:07. [facility], CR, XR LUMBAR SPINE 2-3V, 05/13/2018, 22:15. FINDINGS: Image quality: Diagnostic. Bones: There are 5 lumbar-type vertebral bodies. The lowest intervertebral disk space is designated as L5-S1. There is a chronic appearing T12 compression deformity. Otherwise, the remainder of the vertebral body heights are well-maintained without evidence to suggest an acute compression fracture. The bone mineralization is within normal limits. Moderate to severe multilevel degenerative changes of the lumbar spine are present demonstrating multilevel disc height loss, and discussed with the complexes, vacuum disc phenomenon, and facet arthrosis. These findings are more prominent involving the lower lumbar levels. Severe areas of neural foraminal stenosis are evident on the right at the levels of L4-5 and L5-S1. Soft tissues: The soft tissues of the imaged abdomen and pelvis are within normal limits. IMPRESSION: 1. No acute osseous abnormality of the lumbar spine. 2. Moderate to severe degenerative changes of the lumbar spine. 3. Chronic appearing T12 compression deformity. Dictated by: Davey Robles M.D. on 08/25/2018 at 12:24 Approved by: Davey Robles M.D. on 08/25/2018 at 12:32
--- NOTE | 2018-08-25 12:40 | DI.CT.S_ITS ---
PROCEDURE: CT HEAD/BRAIN WO CON INDICATIONS: mental status change TECHNIQUE: Noncontrast 4.5 mm thick angled axial sections acquired from the foramen magnum to the vertex, with coronal and sagittal reformats. For radiation dose reduction, the following was used: automated exposure control, adjustment of mA and/or kV according to patient size. COMPARISON: [facility], CT, CT HEAD WITHOUT CONTRAST, 03/25/2017, 19:45. FINDINGS: Image quality: Diagnostic. CSF spaces: Basal cisterns are patent. No extra-axial fluid collections. Ventricles are normal in size and shape. Brain: No midline shift. No intracranial masses or hemorrhage. Charles-white matter interface is normal. Skull and face: Calvarium and visualized facial bones are intact, without suspicious lesions. Sinuses: Visualized sinuses and mastoids are clear. IMPRESSION: Unremarkable head CT. No acute intracranial hemorrhage. Dictated by: Davey Robles M.D. on 08/25/2018 at 12:22 Approved by: Davey Robles M.D. on 08/25/2018 at 12:23
[2018-08-25] MEDS: SODIUM CHLORIDE 0.9% 1,000 ML 1000 ML IV (12:51)
--- NOTE | 2018-08-25 12:53 | PC.NURSE ---
Patient unable to recall how long he was laying on the side of the road. Reports laying down secondary to back pain. Patient has chronic lower back pain states it just went out denies any issues with bowel movements or voiding. Alert and oriented x3 but poor historian to morning events. Patient admits to consuming a pint and half of alcohol this morning which he states is a normal amount of ETOH. Reports use of marijuana this morning and heroin use yesterday.
[2018-08-25 12:56] LABS: Add Manual Diff / Slide Review NO; Basophils Absolute Auto 100 /uL (0-100); Basophils Percent Auto 0.8 % (0-2); Eosinophils Absolute Auto 100 /uL (0-450); Eosinophils Percent Auto 1.3 % (2-4); Hematocrit 38.1 % (41-53); Hemoglobin 13.2 g/dL (13.5-17.5); Lymphocytes Absolute Auto 2300 /uL (1100-4500); Lymphocytes Percent Auto 26.4 % (25-40); Mean Corpuscular HGB Conc 34.5 % (30-36); Mean Corpuscular Hemoglobin 30.2 PG (26-34); Mean Corpuscular Volume 87.6 fL (80-100); Monocytes Absolute Auto 500 /uL (0-900); Monocytes Percent Auto 5.3 % (3-14); Neutrophils Absolute Auto 5800 /uL (1500-7000); Neutrophils Percent Auto 66.2 % (50-75); Platelet Count 310 X10^3/uL (150-400); Red Blood Cell Count 4.36 X10^6/uL (4.5-5.9); Red Cell Distribution Width 14.4 % (11.6-14.8); White Blood Cell Count 8.7 X10^3/uL (4.5-11.0)
[2018-08-25 13:23] VITALS: BP 131/82; PULSE 60; RESP 29; O2SAT 97
[2018-08-25 13:23] LABS: Alanine Aminotransferase 18 IU/L (21-72); Albumin 4.1 g/dL (3.5-5.0); Albumin Globulin Ratio 1.2 (1.0-2.8); Alkaline Phosphatase 87 U/L (38-126); Aspartate Aminotransferase 24 IU/L (17-59); BUN Creatinine Ratio 22.2 (6-22); Bilirubin Total 0.4 mg/dL (0.2-1.3); Blood Urea Nitrogen 20 mg/dL (9-20); Calcium 8.9 mg/dL (8.4-10.2); Carbon Dioxide 20 mmol/L (22-32); Chloride 109 mmol/L (98-107); Estimated Glomerular Filt Rate > 60.0 mL/min (>60); Globulin 3.3 g/dL (1.7-4.1); Glucose 83 mg/dL (70-100); HEMOLYSIS < 15 (0-50); Potassium 3.8 mmol/L (3.4-5.1); Sodium 140 mmol/L (137-145); Total Protein 7.4 g/dL (6.3-8.2)
[2018-08-25 14:19] LABS: Urine Amphetamines Negative (Negative); Urine Cocaine Negative (Negative); Urine Morphine/Opi cutoff 2000 Negative (Negative); Urine Tetrahydrocannabinol Positive (Negative)
[2018-08-25 14:20] LABS: Urine Barbiturates Negative (Negative); Urine Benzodiazepines Negative (Negative); Urine MDMA Negative (Negative); Urine Methadone Negative (Negative); Urine Methamphetamines Negative (Negative); Urine Oxycodone Negative (Negative); Urine Phencyclidine Negative (Negative); Urine Tricyclic Antidepressant Positive (Negative)
[2018-08-25 14:30] VITALS: BP 114/83; PULSE 62; RESP 22; O2SAT 96
--- NOTE | 2018-08-25 14:30 | ED.BACK ---
HPI - Back Pain/Injury General Chief Complaint: Back Pain/Injury Stated Complaint: ETOH Time Seen by Provider: 08/25/18 12:29 Source: patient and EMS Mode of arrival: EMS Limitations: altered mental status History of Present Illness HPI Narrative: 58-year-old male smoker found lying on the ground complaining of back pain. patient states he occasionally gets midline back pain but denies any trauma or injury. He denies any fever or chills. He denies any radiation of pain nor numbness, tingling or weakness. He denies any head neck pain. He denies chest pain or shortness of breath. He was transported by EMS because he was slurring his words but admittedly has consumed alcohol and marijuana today and smoked some heroin yesterday. He has never used IV drugs. His pain is worse when he moves and improves with rest. MD Complaint: back pain Onset (ago): hour(s) Duration: intermittent Similar Symptoms Previously: Yes Location: lumbar spine Severity: moderate Quality: stabbing Radiation: none Severity scale (1-10): 5 Relieving factors: immobilization Exacerbating factors: walking Associated symptoms: denies other symptoms Related Data Home Medications Medication Instructions Recorded Confirmed levothyroxine 50 mcg PO QAM #0 07/18/17 Previous Rx's Medication Instructions Recorded metoprolol succinate [Toprol XL] 25 mg PO QDAY #30 ter 09/13/16 prazosin 0 PO SEE INSTRUCTIONS #150 cap 12/21/16 lorazepam 0.5 mg PO TIDP #150 tab 03/31/17 nitroglycerin [Nitrostat] 0.4 mg SUBLINGUAL PRN PRN #30 tab 03/31/17 fluoxetine 40 mg PO QDAY #60 cap 05/26/17 hydrocodone-acetaminophen [Kipling] 1 tab PO TIDP PRN #90 tab 06/27/17 cyclobenzaprine 10 mg PO Q8H PRN #10 tab 07/18/17 meloxicam [Mobic] 15 mg PO Q DAY PRN #30 tab 07/18/17 lidocaine 1 patch TOP DAILY #15 each 05/14/18 Allergies Allergy/AdvReac Type Severity Reaction Status Date / Time morphine [MORPHINE] Allergy Severe CONVULSIONS, Verified 02/20/18 18:10 TROUBLE BREATHING codeine [CODEINE] Allergy Mild RASH, Verified 02/20/18 18:10 HIVES, ITCHING meperidine [MEPERIDINE] Allergy Mild NAUSEA, Verified 02/20/18 18:10 ITCHING, HIVES ibuprofen [IBUPROFEN] Allergy Unknown HIVES Verified 02/20/18 18:10 naproxen [NAPROXEN] Allergy Unknown HIVES Verified 02/20/18 18:10 Review of Systems Constitutional Denies chills, Denies fever(s), Denies lethargy and Denies weakness Eyes Denies change in vision, Denies eye discharge, Denies irritation and Denies loss of vision ENT Ears, Nose, Mouth, and Throat: Denies change in voice, Denies neck pain and Denies sore throat Cardiovascular Denies chest pain, Denies irregular heart rhythm, Denies lightheadedness, Denies palpitations, Denies dyspnea, Denies dyspnea on exertion and Denies orthopnea Respiratory Denies cough, Denies dyspnea, Denies dyspnea on exertion and Denies wheezing Gastrointestinal Gastrointestinal: Denies abdominal pain, Denies change in bowel habits, Denies diarrhea, Denies nausea and Denies vomiting Genitourinary Denies hematuria, Denies flank pain, Denies urinary incontinence and Denies urinary urgency Musculoskeletal Reports back pain and Denies neck pain Integumentary/Breasts Denies pruritus, Denies erythema, Denies rash and Denies wounds Neurologic Denies confusion, Denies loss of vision and Denies weakness Psychiatric Denies anxiety, Denies confusion, Denies depression, Denies homicidal ideation and Denies suicidal ideation Endocrine Denies palpitations Hematologic/Lymphatic Denies easy bruising Allergic/Immunologic Denies wheezing [facility] Medical History Chronic back pain (Acute) Social History (Updated 05/20/18 @ 05:11 by Sun Fox DO) Smoking Status: Current every day smoker alcohol intake: former substance use type: opiates Social History Smoking Status: Current every day smoker alcohol intake: former substance use type: opiates Exam Narrative Exam Narrative: GENERAL: 58-year-old male awake and alert, slurring his words a bit, GCS 14. Patient is a bit disheveled HEAD: Atraumatic. Normocephalic. No temporal or scalp tenderness. no obvious external injury EYES: Pupils equal round and reactive though pinpoint. Extraocular motions intact. No scleral icterus. No injection or drainage. ENT: Nose without bleeding, purulent drainage or septal hematoma. Throat without erythema, tonsillar hypertrophy or exudate. Uvula midline. Airway patent. NECK: Trachea midline. No JVD or lymphadenopathy. Supple, nontender, no meningeal signs. CARDIOVASCULAR: Regular rate and rhythm without murmurs, gallops, or rubs. RESPIRATORY: Clear to auscultation. Breath sounds equal bilaterally. No wheezes, rales, or rhonchi. GASTROINTESTINAL: Abdomen soft, non-tender, nondistended. No hepato-splenomegaly, or palpable masses. No guarding. EXTREMITIES: No clubbing, cyanosis, or edema. No joint tenderness, effusion, or edema noted. BACK: Patient has some reproducible lumbar pain in the midline without any obvious external manifestation. No step-offs or crepitance, no bruising NEURO: AOx3. SKIN: No rash or erythema. Initial Vital Signs Initial Vital Signs: Vital Signs Temperature 98.0 F 08/25/18 12:27 Pulse Rate 66 08/25/18 12:27 Respiratory Rate 18 08/25/18 12:27 Blood Pressure 113/81 08/25/18 12:27 Pulse Oximetry 97 08/25/18 12:27 Course Orders Ordered: ED Orders 08/25/18 12:39 CT lumbar spine wo con Stat 08/25/18 12:40 CT head/brain wo con Stat 08/25/18 12:45 Acetaminophen Stat Complete Blood Count AUTO DIFF Stat Comprehensive Metabolic Panel Stat Ethanol (ETOH) Stat Salicylate Stat 08/25/18 13:43 Urine Drug Screen, Rapid Stat Discontinued Medications Sodium Chloride (Normal Saline 0.9%) 1,000 mls @ 1,000 mls/hr IV BOLUS ONE Stop: 08/25/18 13:38 Last Infusion: 08/25/18 15:55 Dose: 0 mls/hr Admin: 08/25/18 12:51 Dose: 1,000 mls/hr Vital Signs - 8 hr 08/25/18 12:27 08/25/18 13:23 08/25/18 14:30 Temperature 98.0 F Pulse Rate 66 60 62 Respiratory Rate 18 29 H 22 Blood Pressure 113/81 Blood Pressure [Left Arm] 131/82 114/83 Blood Pressure [Right Arm] Pulse Oximetry 97 97 96 08/25/18 15:00 08/25/18 16:07 08/25/18 16:35 Temperature Pulse Rate 62 63 62 Respiratory Rate 23 24 21 Blood Pressure Blood Pressure [Left Arm] 112/78 110/63 Blood Pressure [Right Arm] 118/73 Pulse Oximetry 96 94 96 MDM - Back Pain/Injury Lab Data Result diagrams: 08/25/18 12:45 08/25/18 12:45 Lab Results 08/25/18 08/25/18 08/25/18 Range/Units 12:45 12:45 12:45 WBC 8.7 (4.5-11.0) X10^3/uL RBC 4.36 L (4.5-5.9) X10^6/uL Hgb 13.2 L (13.5-17.5) g/dL Hct 38.1 L (41-53) % MCV 87.6 (80-100) fL MCH 30.2 (26-34) PG MCHC 34.5 (30-36) % RDW 14.4 (11.6-14.8) % Plt Count 310 (150-400) X10^3/uL Neut % (Auto) 66.2 (50-75) % Lymph % (Auto) 26.4 (25-40) % [place] % (Auto) 5.3 (3-14) % Eos % (Auto) 1.3 L (2-4) % Baso % (Auto) 0.8 (0-2) % Neut # (Auto) 5800 (1989-3153) /uL Lymph # (Auto) 2300 (3965-3862) /uL [place] # (Auto) 500 (0-900) /uL Eos # (Auto) 100 (0-450) /uL Baso # (Auto) 100 (0-100) /uL Sodium 140 (137-145) mmol/L Potassium 3.8 (3.4-5.1) mmol/L Chloride 109 H (98-107) mmol/L Carbon Dioxide 20 L (22-32) mmol/L BUN 20 (9-20) mg/dL Creatinine 0.90 (0.66-1.25) mg/dL Estimated GFR > 60.0 (>60) mL/min BUN/Creatinine Ratio 22.2 H (6-22) Glucose 83 (70-100) mg/dL Calcium 8.9 (8.4-10.2) mg/dL Total Bilirubin 0.4 (0.2-1.3) mg/dL AST 24 (17-59) IU/L ALT 18 L (21-72) IU/L Alkaline Phosphatase 87 (38-126) U/L Total Protein 7.4 (6.3-8.2) g/dL Albumin 4.1 (3.5-5.0) g/dL Globulin 3.3 (1.7-4.1) g/dL Albumin/Globulin Ratio 1.2 (1.0-2.8) Salicylates < 1.0 (<20) mg/dL Urine Opiates Screen (Negative) Ur Oxycodone Screen (Negative) Urine Methadone Screen (Negative) Acetaminophen < 10 L (10-30) ug/mL Ur Barbiturates Screen (Negative) U Tricyclic Antidepress (Negative) Ur Phencyclidine Scrn (Negative) Ur Amphetamines Screen (Negative) U Methamphetamines Scrn (Negative) Ur MDMA Scrn (Ecstasy) (Negative) U Benzodiazepines Scrn (Negative) Urine Cocaine Screen (Negative) U Marijuana (THC) Screen (Negative) Ethyl Alcohol 33 mg/dL 08/25/18 Range/Units 13:43 WBC (4.5-11.0) X10^3/uL RBC (4.5-5.9) X10^6/uL Hgb (13.5-17.5) g/dL Hct (41-53) % MCV (80-100) fL MCH (26-34) PG MCHC (30-36) % RDW (11.6-14.8) % Plt Count (150-400) X10^3/uL Neut % (Auto) (50-75) % Lymph % (Auto) (25-40) % [place] % (Auto) (3-14) % Eos % (Auto) (2-4) % Baso % (Auto) (0-2) % Neut # (Auto) (0193-0035) /uL Lymph # (Auto) (0860-5308) /uL [place] # (Auto) (0-900) /uL Eos # (Auto) (0-450) /uL Baso # (Auto) (0-100) /uL Sodium (137-145) mmol/L Potassium (3.4-5.1) mmol/L Chloride (98-107) mmol/L Carbon Dioxide (22-32) mmol/L BUN (9-20) mg/dL Creatinine (0.66-1.25) mg/dL Estimated GFR (>60) mL/min BUN/Creatinine Ratio (6-22) Glucose (70-100) mg/dL Calcium (8.4-10.2) mg/dL Total Bilirubin (0.2-1.3) mg/dL AST (17-59) IU/L ALT (21-72) IU/L Alkaline Phosphatase (38-126) U/L Total Protein (6.3-8.2) g/dL Albumin (3.5-5.0) g/dL Globulin (1.7-4.1) g/dL Albumin/Globulin Ratio (1.0-2.8) Salicylates (<20) mg/dL Urine Opiates Screen Negative (Negative) Ur Oxycodone Screen Negative (Negative) Urine Methadone Screen Negative (Negative) Acetaminophen (10-30) ug/mL Ur Barbiturates Screen Negative (Negative) U Tricyclic Antidepress Positive H (Negative) Ur Phencyclidine Scrn Negative (Negative) Ur Amphetamines Screen Negative (Negative) U Methamphetamines Scrn Negative (Negative) Ur MDMA Scrn (Ecstasy) Negative (Negative) U Benzodiazepines Scrn Negative (Negative) Urine Cocaine Screen Negative (Negative) U Marijuana (THC) Screen Positive H (Negative) Ethyl Alcohol mg/dL Imaging Data CT scan - head: Radiologist's impression: [address] [address] [address] Scan Report Signed Patient: Red Lindquist [facility]#: [id number] : 2Acct:[id number] Age/Sex: 58 / MDate of Service: 08/25/18 Loc: ED Accession Number: [id number] Procedure: CT head/brain wo con Ordering Provider: Dionicio Bhatia D.O. PROCEDURE: CT HEAD/BRAIN WO CON INDICATIONS: mental status change TECHNIQUE: Noncontrast 4.5 mm thick angled axial sections acquired from the foramen magnum to the vertex, with coronal and sagittal reformats. For radiation dose reduction, the following was used: automated exposure control, adjustment of mA and/or kV according to patient size. COMPARISON: [facility], CT, CT HEAD WITHOUT CONTRAST, 03/25/2017, 19:45. FINDINGS: Image quality: Diagnostic. CSF spaces: Basal cisterns are patent. No extra-axial fluid collections. Ventricles are normal in size and shape. Brain: No midline shift. No intracranial masses or hemorrhage. Charles-white matter interface is normal. Skull and face: Calvarium and visualized facial bones are intact, without suspicious lesions. Sinuses: Visualized sinuses and mastoids are clear. IMPRESSION: Unremarkable head CT. No acute intracranial hemorrhage. Dictated by: Davey Robles M.D. on 08/25/2018 at 12:22 Approved by: Davey Robles M.D. on 08/25/2018 at 12:[address]: Radiologist's impression: [address] [address] [address] Scan Report Signed Patient: Red Lindquist [facility]#: [id number] : 2Acct:[id number] Age/Sex: 58 / MDate of Service: 08/25/18 Loc: ED Accession Number: [id number] Procedure: CT lumbar spine wo con Ordering Provider: Dionicio Bhatia D.O. PROCEDURE: CT LUMBAR SPINE WO CON INDICATIONS: lumbar pain, possible injury TECHNIQUE: Noncontrast 3 mm thick sections acquired from the T12 level to the sacrum. Sagittal and coronal reformats were constructed. For radiation dose reduction, the following was used: automated exposure control. COMPARISON: [facility], CT, KIDNEY/ URETER/BLADDER, 07/18/2017, 11:07. [facility], CR, XR LUMBAR SPINE 2-3V, 05/13/2018, 22:15. FINDINGS: Image quality: Diagnostic. Bones: There are 5 lumbar-type vertebral bodies. The lowest intervertebral disk space is designated as L5-S1. There is a chronic appearing T12 compression deformity. Otherwise, the remainder of the vertebral body heights are well-maintained without evidence to suggest an acute compression fracture. The bone mineralization is within normal limits. Moderate to severe multilevel degenerative changes of the lumbar spine are present demonstrating multilevel disc height loss, and discussed with the complexes, vacuum disc phenomenon, and facet arthrosis. These findings are more prominent involving the lower lumbar levels. Severe areas of neural foraminal stenosis are evident on the right at the levels of L4-5 and L5-S1. Soft tissues: The soft tissues of the imaged abdomen and pelvis are within normal limits. IMPRESSION: 1. No acute osseous abnormality of the lumbar spine. 2. Moderate to severe degenerative changes of the lumbar spine. 3. Chronic appearing T12 compression deformity. Dictated by: Davey Robles M.D. on 08/25/2018 at 12:24 Approved by: Davey Robles M.D. on 08/25/2018 at 12:32 Discharge Plan Departure Patient Disposition: Home Clinical Impression: Polysubstance (excluding opioids) dependence, binge pattern Chronic back pain Qualifiers: Back pain location: low back pain Back pain laterality: midline Sciatica presence: without sciatica Qualified Code(s): M54.5 - Low back pain Interventions: ED Discharge Assessment Last Done: 08/25/18 16:36 Instructions: DI for Low Back Pain Activity Restrictions/Additional Instructions: *You have been diagnosed with [ acute on chronic back pain, polysubstance abuse ] *What to do: *Continue to take medications as directed *Follow up with your primary care provider in 2-3 days, call for an appointment. Let them know you were seen in the Emergency Department and that we ask that you be seen in follow up *Return to ER if you should have any new, worsening or concerning symptoms Prescriptions: No Action metoprolol succinate [Toprol XL] 25 MG tablet extended release 24 hr 25 mg PO QDAY Qty: 30 RF: 11 prazosin 1 MG capsule PO SEE INSTRUCTIONS Qty: 150 RF: 5 nitroglycerin [Nitrostat] 0.4 MG tablet, sublingual 0.4 mg Sublingual PRN PRNQty: 30 RF: 11 lorazepam 0.5 MG tablet 0.5 mg PO TIDP Qty: 150 RF: 2 fluoxetine 20 MG capsule 40 mg PO QDAY Qty: 60 RF: 2 hydrocodone-acetaminophen [Kipling] 5 MG/325 MG tablet 1 tab PO TIDP PRNQty: 90 RF: 0 cyclobenzaprine 10 MG tablet 10 mg PO Q8H PRNQty: 10 RF: 0 meloxicam [Mobic] 15 MG tablet 15 mg PO Q DAY PRNQty: 30 RF: 0 levothyroxine 50 MCG tablet 50 mcg PO QAM Qty: 0 RF: 0 lidocaine 5 % adhesive patch,medicated 1 patch TOP DAILY Qty: 15 RF: 0 Referrals: Chance Stuart MD [Primary Care Provider] -
--- NOTE | 2018-08-25 14:34 | ED_ITS ---
HPI - Back Pain/Injury General Chief Complaint: Back Pain/Injury Stated Complaint: ETOH Time Seen by Provider: 08/25/18 12:29 Source: patient and EMS Mode of arrival: EMS Limitations: altered mental status History of Present Illness HPI Narrative: 58-year-old male smoker found lying on the ground complaining of back pain. patient states he occasionally gets midline back pain but denies any trauma or injury. He denies any fever or chills. He denies any radiation of pain nor numbness, tingling or weakness. He denies any head neck pain. He denies chest pain or shortness of breath. He was transported by EMS because he was slurring his words but admittedly has consumed alcohol and marijuana today and smoked some heroin yesterday. He has never used IV drugs. His pain is worse when he moves and improves with rest. MD Complaint: back pain Onset (ago): hour(s) Duration: intermittent Similar Symptoms Previously: Yes Location: lumbar spine Severity: moderate Quality: stabbing Radiation: none Severity scale (1-10): 5 Relieving factors: immobilization Exacerbating factors: walking Associated symptoms: denies other symptoms Related Data Home Medications Medication Instructions Recorded Confirmed levothyroxine 50 mcg PO QAM #0 07/18/17 Previous Rx's Medication Instructions Recorded metoprolol succinate [Toprol XL] 25 mg PO QDAY #30 ter 09/13/16 prazosin 0 PO SEE INSTRUCTIONS #150 cap 12/21/16 lorazepam 0.5 mg PO TIDP #150 tab 03/31/17 nitroglycerin [Nitrostat] 0.4 mg SUBLINGUAL PRN PRN #30 tab 03/31/17 fluoxetine 40 mg PO QDAY #60 cap 05/26/17 hydrocodone-acetaminophen [Micanopy] 1 tab PO TIDP PRN #90 tab 06/27/17 cyclobenzaprine 10 mg PO Q8H PRN #10 tab 07/18/17 meloxicam [Mobic] 15 mg PO Q DAY PRN #30 tab 07/18/17 lidocaine 1 patch TOP DAILY #15 each 05/14/18 Allergies Allergy/AdvReac Type Severity Reaction Status Date / Time morphine [MORPHINE] Allergy Severe CONVULSIONS, Verified 02/20/18 18:10 TROUBLE BREATHING codeine [CODEINE] Allergy Mild RASH, Verified 02/20/18 18:10 HIVES, ITCHING meperidine [MEPERIDINE] Allergy Mild NAUSEA, Verified 02/20/18 18:10 ITCHING, HIVES ibuprofen [IBUPROFEN] Allergy Unknown HIVES Verified 02/20/18 18:10 naproxen [NAPROXEN] Allergy Unknown HIVES Verified 02/20/18 18:10 Review of Systems Constitutional Denies chills, Denies fever(s), Denies lethargy and Denies weakness Eyes Denies change in vision, Denies eye discharge, Denies irritation and Denies loss of vision ENT Ears, Nose, Mouth, and Throat: Denies change in voice, Denies neck pain and Denies sore throat Cardiovascular Denies chest pain, Denies irregular heart rhythm, Denies lightheadedness, Denies palpitations, Denies dyspnea, Denies dyspnea on exertion and Denies orthopnea Respiratory Denies cough, Denies dyspnea, Denies dyspnea on exertion and Denies wheezing Gastrointestinal Gastrointestinal: Denies abdominal pain, Denies change in bowel habits, Denies diarrhea, Denies nausea and Denies vomiting Genitourinary Denies hematuria, Denies flank pain, Denies urinary incontinence and Denies urinary urgency Musculoskeletal Reports back pain and Denies neck pain Integumentary/Breasts Denies pruritus, Denies erythema, Denies rash and Denies wounds Neurologic Denies confusion, Denies loss of vision and Denies weakness Psychiatric Denies anxiety, Denies confusion, Denies depression, Denies homicidal ideation and Denies suicidal ideation Endocrine Denies palpitations Hematologic/Lymphatic Denies easy bruising Allergic/Immunologic Denies wheezing [facility] Medical History Chronic back pain (Acute) Social History (Updated 05/20/18 @ 05:11 by Sun Fox DO) Smoking Status: Current every day smoker alcohol intake: former substance use type: opiates Social History Smoking Status: Current every day smoker alcohol intake: former substance use type: opiates Exam Narrative Exam Narrative: GENERAL: 58-year-old male awake and alert, slurring his words a bit, GCS 14. Patient is a bit disheveled HEAD: Atraumatic. Normocephalic. No temporal or scalp tenderness. no obvious external injury EYES: Pupils equal round and reactive though pinpoint. Extraocular motions inta ct. No scleral icterus. No injection or drainage. ENT: Nose without bleeding, purulent drainage or septal hematoma. Throat without erythema, tonsillar hypertrophy or exudate. Uvula midline. Airway patent. NECK: Trachea midline. No JVD or lymphadenopathy. Supple, nontender, no meningeal signs. CARDIOVASCULAR: Regular rate and rhythm without murmurs, gallops, or rubs. RESPIRATORY: Clear to auscultation. Breath sounds equal bilaterally. No wheezes, rales, or rhonchi. GASTROINTESTINAL: Abdomen soft, non-tender, nondistended. No hepato- splenomegaly, or palpable masses. No guarding. EXTREMITIES: No clubbing, cyanosis, or edema. No joint tenderness, effusion, or edema noted. BACK: Patient has some reproducible lumbar pain in the midline without any obvious external manifestation. No step-offs or crepitance, no bruising NEURO: AOx3. SKIN: No rash or erythema. Initial Vital Signs Initial Vital Signs: Vital Signs Temperature 98.0 F 08/25/18 12:27 Pulse Rate 66 08/25/18 12:27 Respiratory Rate 18 08/25/18 12:27 Blood Pressure 113/81 08/25/18 12:27 Pulse Oximetry 97 08/25/18 12:27 Course Orders Ordered: ED Orders 08/25/18 12:39 CT lumbar spine wo con Stat 08/25/18 12:40 CT head/brain wo con Stat 08/25/18 12:45 Acetaminophen Stat Complete Blood Count AUTO DIFF Stat Comprehensive Metabolic Panel Stat Ethanol (ETOH) Stat Salicylate Stat 08/25/18 13:43 Urine Drug Screen, Rapid Stat Discontinued Medications Sodium Chloride (Normal Saline 0.9%) 1,000 mls @ 1,000 mls/hr IV BOLUS ONE Stop: 08/25/18 13:38 Last Infusion: 08/25/18 15:55 Dose: 0 mls/hr Admin: 08/25/18 12:51 Dose: 1,000 mls/hr Vital Signs - 8 hr 08/25/18 12:27 08/25/18 13:23 08/25/18 14:30 Temperature 98.0 F Pulse Rate 66 60 62 Respiratory Rate 18 29 H 22 Blood Pressure 113/81 Blood Pressure [Left Arm] 131/82 114/83 Blood Pressure [Right Arm] Pulse Oximetry 97 97 96 08/25/18 15:00 08/25/18 16:07 08/25/18 16:35 Temperature Pulse Rate 62 63 62 Respiratory Rate 23 24 21 Blood Pressure Blood Pressure [Left Arm] 112/78 110/63 Blood Pressure [Right Arm] 118/73 Pulse Oximetry 96 94 96 MDM - Back Pain/Injury Lab Data Result diagrams: 08/25/18 12:45 08/25/18 12:45 Lab Results 08/25/18 08/25/18 08/25/18 Range/Units 12:45 12:45 12:45 WBC 8.7 (4.5-11.0) X10^3/uL RBC 4.36 L (4.5-5.9) X10^6/uL Hgb 13.2 L (13.5-17.5) g/dL Hct 38.1 L (41-53) % MCV 87.6 (80-100) fL MCH 30.2 (26-34) PG MCHC 34.5 (30-36) % RDW 14.4 (11.6-14.8) % Plt Count 310 (150-400) X10^3/uL Neut % (Auto) 66.2 (50-75) % Lymph % (Auto) 26.4 (25-40) % [place] % (Auto) 5.3 (3-14) % Eos % (Auto) 1.3 L (2-4) % Baso % (Auto) 0.8 (0-2) % Neut # (Auto) 5800 (3013-2909) /uL Lymph # (Auto) 2300 (8015-4295) /uL [place] # (Auto) 500 (0-900) /uL Eos # (Auto) 100 (0-450) /uL Baso # (Auto) 100 (0-100) /uL Sodium 140 (137-145) mmol/L Potassium 3.8 (3.4-5.1) mmol/L Chloride 109 H (98-107) mmol/L Carbon Dioxide 20 L (22-32) mmol/L BUN 20 (9-20) mg/dL Creatinine 0.90 (0.66-1.25) mg/dL Estimated GFR > 60.0 (>60) mL/min BUN/Creatinine Ratio 22.2 H (6-22) Glucose 83 (70-100) mg/dL Calcium 8.9 (8.4-10.2) mg/dL Total Bilirubin 0.4 (0.2-1.3) mg/dL AST 24 (17-59) IU/L ALT 18 L (21-72) IU/L Alkaline Phosphatase 87 (38-126) U/L Total Protein 7.4 (6.3-8.2) g/dL Albumin 4.1 (3.5-5.0) g/dL Globulin 3.3 (1.7-4.1) g/dL Albumin/Globulin Ratio 1.2 (1.0-2.8) Salicylates < 1.0 (<20) mg/dL Urine Opiates Screen (Negative) Ur Oxycodone Screen (Negative) Urine Methadone Screen (Negative) Acetaminophen < 10 L (10-30) ug/mL Ur Barbiturates Screen (Negative) U Tricyclic Antidepress (Negative) Ur Phencyclidine Scrn (Negative) Ur Amphetamines Screen (Negative) U Methamphetamines Scrn (Negative) Ur MDMA Scrn (Ecstasy) (Negative) U Benzodiazepines Scrn (Negative) Urine Cocaine Screen (Negative) U Marijuana (THC) Screen (Negative) Ethyl Alcohol 33 mg/dL 08/25/18 Range/Units 13:43 WBC (4.5-11.0) X10^3/uL RBC (4.5-5.9) X10^6/uL Hgb (13.5-17.5) g/dL Hct (41-53) % MCV (80-100) fL MCH (26-34) PG MCHC (30-36) % RDW (11.6-14.8) % Plt Count (150-400) X10^3/uL Neut % (Auto) (50-75) % Lymph % (Auto) (25-40) % [place] % (Auto) (3-14) % Eos % (Auto) (2-4) % Baso % (Auto) (0-2) % Neut # (Auto) (3373-8513) /uL Lymph # (Auto) (1510-1061) /uL [place] # (Auto) (0-900) /uL Eos # (Auto) (0-450) /uL Baso # (Auto) (0-100) /uL Sodium (137-145) mmol/L Potassium (3.4-5.1) mmol/L Chloride (98-107) mmol/L Carbon Dioxide (22-32) mmol/L BUN (9-20) mg/dL Creatinine (0.66-1.25) mg/dL Estimated GFR (>60) mL/min BUN/Creatinine Ratio (6-22) Glucose (70-100) mg/dL Calcium (8.4-10.2) mg/dL Total Bilirubin (0.2-1.3) mg/dL AST (17-59) IU/L ALT (21-72) IU/L Alkaline Phosphatase (38-126) U/L Total Protein (6.3-8.2) g/dL Albumin (3.5-5.0) g/dL Globulin (1.7-4.1) g/dL Albumin/Globulin Ratio (1.0-2.8) Salicylates (<20) mg/dL Urine Opiates Screen Negative (Negative) Ur Oxycodone Screen Negative (Negative) Urine Methadone Screen Negative (Negative) Acetaminophen (10-30) ug/mL Ur Barbiturates Screen Negative (Negative) U Tricyclic Antidepress Positive H (Negative) Ur Phencyclidine Scrn Negative (Negative) Ur Amphetamines Screen Negative (Negative) U Methamphetamines Scrn Negative (Negative) Ur MDMA Scrn (Ecstasy) Negative (Negative) U Benzodiazepines Scrn Negative (Negative) Urine Cocaine Screen Negative (Negative) U Marijuana (THC) Screen Positive H (Negative) Ethyl Alcohol mg/dL Imaging Data CT scan - head: Radiologist's impression: [address] [address] [address] Scan Report Signed Patient: Red Lindquist [facility]#: [id number] : 2Acct:[id number] Age/Sex: 58 / MDate of Service: 08/25/18 Loc: ED Accession Number: [id number] Procedure: CT head/brain wo con Ordering Provider: Dionicio Bhatia D.O. PROCEDURE: CT HEAD/BRAIN WO CON INDICATIONS: mental status change TECHNIQUE: Noncontrast 4.5 mm thick angled axial sections acquired from the foramen magnum to the vertex, with coronal and sagittal reformats. For radiation dose reduction, the following was used: automated exposure control, adjustment of mA and/or kV according to patient size. COMPARISON: [facility], CT, CT HEAD WITHOUT CONTRAST, 03/25/2017, 19:45. FINDINGS: Image quality: Diagnostic. CSF spaces: Basal cisterns are patent. No extra-axial fluid collections. Ventricles are normal in size and shape. Brain: No midline shift. No intracranial masses or hemorrhage. Charles-white matter interface is normal. Skull and face: Calvarium and visualized facial bones are intact, without suspicious lesions. Sinuses: Visualized sinuses and mastoids are clear. IMPRESSION: Unremarkable head CT. No acute intracranial hemorrhage. Dictated by: Davey Robles M.D. on 08/25/2018 at 12:22 Approved by: Davey Robles M.D. on 08/25/2018 at 12:[address]: Radiologist's impression: [address] [address] [address] Scan Report Signed Patient: Red Lindquist [facility]#: [id number] : 2Acct:[id number] Age/Sex: 58 / MDate of Service: 08/25/18 Loc: ED Accession Number: [id number] Procedure: CT lumbar spine wo con Ordering Provider: Dionicio Bhatia D.O. PROCEDURE: CT LUMBAR SPINE WO CON INDICATIONS: lumbar pain, possible injury TECHNIQUE: Noncontrast 3 mm thick sections acquired from the T12 level to the sacrum. Sagittal and coronal reformats were constructed. For radiation dose reduction, the following was used: automated exposure control. COMPARISON: [facility], CT, KIDNEY/ URETER/BLADDER, 07/18/2017, 11:07. [facility], CR, XR LUMBAR SPINE 2-3V, 05/13/2018, 22:15. FINDINGS: Image quality: Diagnostic. Bones: There are 5 lumbar-type vertebral bodies. The lowest intervertebral disk space is designated as L5-S1. There is a chronic appearing T12 compression deformity. Otherwise, the remainder of the vertebral body heights are well-maintained without evidence to suggest an acute compression fracture. The bone mineralization is within normal limits. Moderate to severe multilevel degenerative changes of the lumbar spine are present demonstrating multilevel disc height loss, and discussed with the complexes, vacuum disc phenomenon, and facet arthrosis. These findings are more prominent involving the lower lumbar levels. Severe areas of neural foraminal stenosis are evident on the right at the levels of L4-5 and L5-S1. Soft tissues: The soft tissues of the imaged abdomen and pelvis are within normal limits. IMPRESSION: 1. No acute osseous abnormality of the lumbar spine. 2. Moderate to severe degenerative changes of the lumbar spine. 3. Chronic appearing T12 compression deformity. Dictated by: Davey Robles M.D. on 08/25/2018 at 12:24 Approved by: Davey Robles M.D. on 08/25/2018 at 12:32 Discharge Plan Departure Patient Disposition: Home Clinical Impression: Polysubstance (excluding opioids) dependence, binge pattern Chronic back pain Qualifiers: Back pain location: low back pain Back pain laterality: midline Sciatica presence: without sciatica Qualified Code(s): M54.5 - Low back pain Interventions: ED Discharge Assessment Last Done: 08/25/18 16:36 Instructions: DI for Low Back Pain Activity Restrictions/Additional Instructions: *You have been diagnosed with [ acute on chronic back pain, polysubstance abuse ] *What to do: *Continue to take medications as directed *Follow up with your primary care provider in 2-3 days, call for an appointment. Let them know you were seen in the Emergency Department and that we ask that you be seen in follow up *Return to ER if you should have any new, worsening or concerning symptoms Prescriptions: No Action metoprolol succinate [Toprol XL] 25 MG tablet extended release 24 hr 25 mg PO QDAY Qty: 30 RF: 11 prazosin 1 MG capsule PO SEE INSTRUCTIONS Qty: 150 RF: 5 nitroglycerin [Nitrostat] 0.4 MG tablet, sublingual 0.4 mg Sublingual PRN PRNQty: 30 RF: 11 lorazepam 0.5 MG tablet 0.5 mg PO TIDP Qty: 150 RF: 2 fluoxetine 20 MG capsule 40 mg PO QDAY Qty: 60 RF: 2 hydrocodone-acetaminophen [Micanopy] 5 MG/325 MG tablet 1 tab PO TIDP PRNQty: 90 RF: 0 cyclobenzaprine 10 MG tablet 10 mg PO Q8H PRNQty: 10 RF: 0 meloxicam [Mobic] 15 MG tablet 15 mg PO Q DAY PRNQty: 30 RF: 0 levothyroxine 50 MCG tablet 50 mcg PO QAM Qty: 0 RF: 0 lidocaine 5 % adhesive patch,medicated 1 patch TOP DAILY Qty: 15 RF: 0 Referrals: Chance Stuart MD [Primary Care Provider] -
[2018-08-25 14:52] LABS: Acetaminophen < 10 ug/mL (10-30); Ethanol (ETOH) 33 mg/dL
[2018-08-25 14:53] LABS: Salicylate < 1.0 mg/dL (<20)
[2018-08-25 15:00] VITALS: BP 112/78; PULSE 62; RESP 23; O2SAT 96
[2018-08-25 16:07] VITALS: BP 118/73; PULSE 63; RESP 24; O2SAT 94
--- NOTE | 2018-08-25 16:08 | PC.NURSE ---
Patient walked 1 lap around the ER with a steady gait
[2018-08-25 16:35] VITALS: BP 110/63; PULSE 62; RESP 21; O2SAT 96
== END 2018-08-25 16:36 | disposition home or self-care (01) ==
PROVIDERS: Emergency Provider Emergency Medicine; Family Provider Family Medicine; PCP Family Medicine
DX: M54.5 Low back pain (principal); F19.20 Other psychoactive substance dependence, uncomplicated
CPT/HCPCS: 36591; 70450; 72131; 80053; 80305; 80320; 80329; 85025; 93005; 96360; 96361; 99283; 99284; G0480

== ENCOUNTER 2019-01-23 12:11 | Emergency (ER) | payer MEDICAID, OTHER, SELFPAY ==
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
[2019-01-23 12:26] VITALS: BP 136/78; PULSE 67; RESP 14; TEMP 36.4; O2SAT 97
--- NOTE | 2019-01-23 12:38 | DI.RAD.S_ITS ---
PROCEDURE: XR RIBS RT MIN 3V W CXR 1V INDICATIONS: r. 12th rib pain, s/p fall TECHNIQUE: 2 views of the right ribs were acquired, along with a single view chest. COMPARISON: [facility], , XR CHEST 1 VIEW, 12/25/2018, 21:46. FINDINGS: Surgical changes and devices: None. Bones and chest wall: No fractures or dislocations. No suspicious bony lesions. Overlying soft tissues appear unremarkable. Lungs and pleura: No pleural effusions or pneumothorax. Lungs appear clear. Mediastinum: Mediastinal contours appear normal. Heart size is normal. IMPRESSION: No acute fracture. No osseous lesion. If symptoms and/or clinical suspicion for pathology persist, further assessment with repeat, or advanced imaging (e.g., CT bone scan) may be helpful for further assessment. Dictated by: Sue Gray M.D. on 01/23/2019 at 13:43 Approved by: Sue Gray M.D. on 01/23/2019 at 13:44
--- NOTE | 2019-01-23 12:39 | DI.US.S_ITS ---
PROCEDURE: US ABDOMEN LIMITED INDICATIONS: R. UQ, R. LQ PAIN, IH TECHNIQUE: Real-time focused scanning was performed of the abdomen, with image documentation. COMPARISON: [facility], CT, CT IVP, 04/21/2017, 8:10. FINDINGS: Imaged portions of the liver are grossly unremarkable. Echogenicity of the liver symmetric with the right kidney. Imaged portions of the liver are unremarkable. No intrahepatic or extrahepatic biliary dilatation is evident. The common bile duct measures up to 5 mm in diameter. No cholelithiasis or gallbladder wall inflammation is appreciated. The right kidney measures 10.3 cm in length and is normal in size. There is a possible cyst along the upper aspect of the right kidney measuring up to 2.3 cm. There is questionable slight dilatation of the superior right renal collecting system without kay hydronephrosis. No shadowing renal calculi are evident. Targeted sonographic imaging of the right lower quadrant demonstrates no inguinal hernia. The pancreas was not adequately seen. IMPRESSION: 1. Heterogeneous appearance of the upper right kidney is not well characterized. This could potentially represent a focal dilatation of the upper right renal collecting system and/or a small cyst. Please consider CT urography for better evaluation. 2. Unremarkable liver. 3. No cholelithiasis. Dictated by: Davey Robles M.D. on 01/23/2019 at 12:54 Approved by: Davey Robles M.D. on 01/23/2019 at 12:57
[2019-01-23 12:43] LABS: Add Manual Diff / Slide Review NO; Basophils Absolute Auto 0 /uL (0-100); Basophils Percent Auto 0.4 % (0-2); Eosinophils Absolute Auto 100 /uL (0-450); Eosinophils Percent Auto 1.1 % (2-4); Hematocrit 40.5 % (41-53); Hemoglobin 13.9 g/dL (13.5-17.5); Lymphocytes Absolute Auto 1600 /uL (1100-4500); Mean Corpuscular HGB Conc 34.2 % (30-36); Mean Corpuscular Hemoglobin 29.5 PG (26-34); Mean Corpuscular Volume 86.1 fL (80-100); Monocytes Absolute Auto 500 /uL (0-900); Monocytes Percent Auto 6.9 % (3-14); Neutrophils Absolute Auto 5500 /uL (1500-7000); Neutrophils Percent Auto 70.6 % (50-75); Platelet Count 272 X10^3/uL (150-400); White Blood Cell Count 7.8 X10^3/uL (4.5-11.0)
[2019-01-23 12:48] LABS: Alanine Aminotransferase 25 IU/L (21-72); Albumin 4.1 g/dL (3.5-5.0); Albumin Globulin Ratio 1.2 (1.0-2.8); Alkaline Phosphatase 96 U/L (38-126); Aspartate Aminotransferase 41 IU/L (17-59); Bilirubin Total 0.7 mg/dL (0.2-1.3); Blood Urea Nitrogen 8 mg/dL (9-20); Calcium 9.2 mg/dL (8.4-10.2); Carbon Dioxide 24 mmol/L (22-32); Chloride 106 mmol/L (98-107); Estimated Glomerular Filt Rate > 60.0 mL/min (>60); Globulin 3.4 g/dL (1.7-4.1); Glucose 87 mg/dL (70-100); HEMOLYSIS 19 (0-50); Potassium 3.9 mmol/L (3.4-5.1); Sodium 140 mmol/L (137-145); Total Protein 7.5 g/dL (6.3-8.2)
[2019-01-23] MEDS: PANTOPRAZOLE 40 MG VIAL IV (13:10)
[2019-01-23] MEDS: SODIUM CHLORIDE 0.9% 1,000 ML 1000 ML IV (13:10)
[2019-01-23 13:15] LABS: Bacteria Urine None Seen
[2019-01-23 13:28] LABS: Culture Indicated Urine Cult Not Indicated; RBC Urine 0-1/HPF (0-5/HPF); WBC Urine 0-1/HPF (0-5/HPF)
[2019-01-23] MEDS: KETOROLAC 60 MG/2 ML VIAL 15 MG IV (13:39)
[2019-01-23 13:47] LABS: Lipase 94 U/L (23-300)
--- NOTE | 2019-01-23 14:31 | DI.CT.S_ITS ---
PROCEDURE: CT KIDNEY URETER BLADDER (KUB) INDICATIONS: abn US, R. side pain TECHNIQUE: Noncontrast 5 mm thick sections acquired from the diaphragms to the symphysis. 5 mm thick coronal and sagittal reformats were then performed. For radiation dose reduction, the following was used: automated exposure control, adjustment of mA and/or kV according to patient size. COMPARISON: [facility], CT, CT KUB, 03/25/2017, 20:46. [facility], CT, CT IVP, 04/21/2017, 8:10. , CT, KIDNEY/ URETER/BLADDER, 07/18/2017, 11:07. FINDINGS: Image quality: Excellent. Lung bases: Bibasilar scars and atelectasis. Heart size is normal. Urinary system: Both kidneys are normal in size. No kidney stones. No hydronephrosis or perinephric fat stranding. Both ureters appear non-dilated throughout their expected courses. Bladder wall thickness is normal; no calcified bladder stones. Other solid organs: Liver is normal in size. Gallbladder is normal. Pancreas is normal in contours. Spleen is normal in size. No adrenal nodules. Peritoneum and bowel: Unenhanced bowel loops demonstrate normal wall thickness and caliber. The appendix is normal. There are scattered sigmoid diverticula. No evidence for active diverticulitis. No free fluid or air. Nodes and vessels: No retroperitoneal or mesenteric adenopathy by size criteria. Aorta and inferior vena cava are normal in caliber. Abdominal wall: No ventral hernias. Pelvis: No free pelvic fluid. No inguinal hernias or adenopathy. Bones: No suspicious bony lesions. No vertebral body compression fractures. Degenerative disc and facet disease in lower thoracic spine and lumbar spine. There is right hip arthroplasty. IMPRESSION: 1. No urinary stones or hydronephrosis. 2. Normal appendix. 3. Sigmoid diverticulosis. No diverticulitis. 4. Degenerative disc and facet disease in the lower thoracic spine and lumbar spine. Dictated by: Jenna Rosario M.D. on 01/23/2019 at 15:06 Approved by: Jenna Rosario M.D. on 01/23/2019 at 15:27
[2019-01-23 14:45] VITALS: BP 142/84; PULSE 52; RESP 14; O2SAT 96
[2019-01-23 16:10] VITALS: BP 143/86; PULSE 88; RESP 12; O2SAT 99
== END 2019-01-23 16:17 | disposition home or self-care (01) ==
PROVIDERS: Emergency Provider Internal Medicine; Family Provider Family Medicine
DX: S20.211A Contusion of right front wall of thorax, initial encounter (principal); R10.31 Right lower quadrant pain; W01.0XXA Fall on same level from slipping, tripping and stumbling without subsequent striking against object, initial encounter
CPT/HCPCS: 36415; 71101; 74176; 76705; 80053; 81003; 81015; 83690; 85025; 96361; 96374; 96375; 99283; 99284; C9113; J1885

== ENCOUNTER 2019-07-01 03:14 | Emergency (ER) | payer MEDICAID, OTHER, SELFPAY ==
[2019-07-01 03:15] VITALS: BP 123/68; PULSE 72; RESP 22; TEMP 36.8; O2SAT 97
--- NOTE | 2019-07-01 03:24 | ED_ITS ---
HPI - Abdominal Pain General Chief Complaint: Abdominal Pain Stated Complaint: Right lower abdominal pain, radiating to shoulder Time Seen by Provider: 07/01/19 03:24 Source: EMS Mode of arrival: EMS Limitations: no limitations History of Present Illness HPI narrative: This is a 59-year-old male who comes in with complaint of right lower abdominal pain as well as pain into his left shoulder. Patient states that he has not had any fevers/chills or sweats. He has had some nausea and vomiting states 3 episodes of vomiting he states pain been going on for about 3 days but increased recently. He states it is constant in nature. He states that the chest pain/shoulder pain has also been present for 3 days. He denies any exacerbating factors. States that he has had normal bowel movements with 1 in the last 12 hours. No black or bloody stools, he denies any frequency, dysuria or urgency. No change in the location, no ripping burning or tearing sensation. Patient denies any back or flank pain. He was at work [place] [employer] and came to the emergency department from there. States he did have a heart attack in 2010 denies any cardiac stents. States he has had a hip replacement denies any other surgeries. Daily smoker, 0-2 drinks daily with THC but no illicit per patient. He does take an aspirin daily, ?cardiac medication and ?and appears to take levothyroxine and fluoxetine her prior ER visit. He states he has allergies to codeine, ibuprofen and morphine although he has had Toradol here in the department without issue in the past. Related Data Home Medications Medication Instructions Recorded Confirmed levothyroxine 50 mcg PO QAM #0 07/18/17 01/23/19 aspirin 81 mg PO DAILY 01/23/19 01/23/19 metoprolol succinate [Toprol XL] 25 mg PO DAILY 01/23/19 01/23/19 nitroglycerin [Nitrostat] 0.4 mg SUBLINGUAL PRN PRN 01/23/19 01/23/19 Previous Rx's Medication Instructions Recorded fluoxetine 40 mg PO QDAY #60 cap 05/26/17 dicyclomine 10 mg PO TID PRN #10 cap 07/01/19 polyethylene glycol 3350 [Miralax] 17 gram PO DAILY #1 package 07/01/19 Allergies Allergy/AdvReac Type Severity Reaction Status Date / Time morphine [MORPHINE] Allergy Severe CONVULSIONS, Verified 01/23/19 12:23 TROUBLE BREATHING codeine [CODEINE] Allergy Mild RASH, Verified 01/23/19 12:23 HIVES, ITCHING meperidine [MEPERIDINE] Allergy Mild NAUSEA, Verified 01/23/19 12:23 ITCHING, HIVES ibuprofen [IBUPROFEN] Allergy Unknown HIVES Verified 01/23/19 12:23 naproxen [NAPROXEN] Allergy Unknown HIVES Verified 01/23/19 12:23 Review of Systems Review of Systems ROS Unobtainable: All systems reviewed & are unremarkable except as noted in HPI and below Patient History Medical History Chronic back pain (Acute) Coronary arteriosclerosis in [place] artery (03/15/13) Degenerative disc disease (Chronic) Depression with anxiety (Chronic) Hypothyroidism (07/21/17) Surgical History History of bilateral total hip arthroplasty (Resolved) History of ear surgery (Resolved) Social History Smoking Status: Current every day smoker alcohol intake: former substance use type: opiates Smoking Status: Current every day smoker alcohol intake frequency: 0-2 drinks per day Substance Use Type: marijuana Exam Narrative Exam Narrative: GENERAL: Alert and oriented x three, well-nourished male in moderate distress HEENT: Head normocephalic, atraumatic, EOMI, pupils reactive, face symmetric, moist mucous membranes NECK: Supple, full range of motion CARDIOVASCULAR: Regular rate and rhythm without murmurs, rubs or gallops. No reproducible chest pain. No ecchymosis or rash. RESPIRATORY: Breath sounds equal bilaterally, no wheezes rales or rhonchi. ABDOMEN: Soft, nontender palpation. Normoactive bowel sounds all 4 quadrants. No guarding or rebound, rigidity, no mass, no distention. No bruit or pulsatile mass. : No CVA tenderness bilaterally EXTREMITIES: Normal range of motion, no clubbing or edema. 2+ pulses bilateral lower extremities. Neurovascularly intact NEUROLOGICAL: Cranial nerves II through XII grossly intact. Moving all extremities SKIN: Warm, dry, no petechiae, no rashes or lesions. Initial Vital Signs Initial Vital Signs: Vital Signs Temperature 98.2 F 07/01/19 03:15 Pulse Rate 72 07/01/19 03:15 Respiratory Rate 22 07/01/19 03:15 Blood Pressure 123/68 07/01/19 03:15 Pulse Oximetry 97 07/01/19 03:15 Scores GCS Bo[place] coma scale eye opening: Spontaneous [place] coma scale verbal response: Orientated [place] coma scale motor response: [place] commands [place] coma scale total score: 15 Course Orders Ordered: ED Orders 07/01/19 03:21 EKG-12 Lead Stat 07/01/19 03:26 CT abdomen pelvis w con Stat XR chest 1V Stat 07/01/19 03:30 Complete Blood Count AUTO DIFF Stat Comprehensive Metabolic Panel Stat Lipase Stat Partial Thromboplastin Time Stat Prothrombin Time INR Stat Troponin & CK Cardiac Panel Stat 07/01/19 05:20 Urine Microscopic Stat Discontinued Medications Sodium Chloride (Normal Saline 0.9%) 1,000 mls @ 1,000 mls/hr IV BOLUS ONE Stop: 07/01/19 04:25 Last Infusion: 07/01/19 05:25 Dose: 1,000 mls/hr Documented by: DULCE MARIA Admin: 07/01/19 03:48 Dose: 1,000 mls/hr Documented by: DULCE MARIA Ketorolac Tromethamine (Toradol) 15 mg IV NOW ONE Stop: 07/01/19 03:27 Last Admin: 07/01/19 03:50 Dose: 15 mg Documented by: DULCE MARIA Pantoprazole Sodium (Protonix) 40 mg IV NOW ONE Stop: 07/01/19 03:27 Last Admin: 07/01/19 03:49 Dose: 40 mg Documented by: DULCE MARIA Vital Signs Vital signs: Vital Signs - 8 hr 07/01/19 03:15 07/01/19 04:23 07/01/19 05:37 Temperature 98.2 F Pulse Rate 72 66 55 L Respiratory Rate 22 17 22 Blood Pressure 123/68 Blood Pressure [Left Arm] 139/79 140/86 Pulse Oximetry 97 99 95 MDM - Abdominal Pain Lab Data Attestation: I reviewed the patient's lab results. Result diagrams: 07/01/19 03:30 07/01/19 03:30 Labs: Lab Results 07/01/19 07/01/19 07/01/19 Range/Units 03:30 03:30 03:30 WBC 8.6 (4.5-11.0) X10^3/uL RBC 4.50 (4.5-5.9) X10^6/uL Hgb 13.3 L (13.5-17.5) g/dL Hct 38.9 L (41-53) % MCV 86.4 (80-100) fL MCH 29.5 (26-34) PG MCHC 34.2 (30-36) % RDW 14.9 H (11.6-14.8) % Plt Count 332 (150-400) X10^3/uL Neut % (Auto) 67.2 (50-75) % Lymph % (Auto) 24.3 L (25-40) % [place] % (Auto) 5.6 (3-14) % Eos % (Auto) 2.6 (2-4) % Baso % (Auto) 0.3 (0-2) % Neut # (Auto) 5800 (2531-4041) /uL Lymph # (Auto) 2100 (2476-2024) /uL [place] # (Auto) 500 (0-900) /uL Eos # (Auto) 200 (0-450) /uL Baso # (Auto) 0 (0-100) /uL PT 11.7 (10.1-12.7) SECONDS INR 1.0 (0.9-1.3) APTT 33 (26.4-36.2) SECONDS Sodium 141 (137-145) mmol/L Potassium 3.9 (3.4-5.1) mmol/L Chloride 110 H (98-107) mmol/L Carbon Dioxide 25 (22-32) mmol/L BUN 12 (9-20) mg/dL Creatinine 0.90 (0.66-1.25) mg/dL Estimated GFR > 60.0 (>60) mL/min BUN/Creatinine Ratio 13.3 (6-22) Glucose 103 H (70-100) mg/dL Calcium 8.8 (8.4-10.2) mg/dL Total Bilirubin 0.4 (0.2-1.3) mg/dL AST 31 (17-59) IU/L ALT 17 (<50) IU/L Alkaline Phosphatase 100 (38-126) U/L Total Creatine Kinase (55-170) U/L CK-MB (CK-2) (<2.37) ng/mL CK-MB (CK-2) Rel Index (1.5-5.0) % Troponin I (0.01-0.034) ng/mL Total Protein 7.6 (6.3-8.2) g/dL Albumin 4.0 (3.5-5.0) g/dL Globulin 3.6 (1.7-4.1) g/dL Albumin/Globulin Ratio 1.1 (1.0-2.8) Lipase 109 (23-300) U/L 07/01/19 Range/Units 03:30 WBC (4.5-11.0) X10^3/uL RBC (4.5-5.9) X10^6/uL Hgb (13.5-17.5) g/dL Hct (41-53) % MCV (80-100) fL MCH (26-34) PG MCHC (30-36) % RDW (11.6-14.8) % Plt Count (150-400) X10^3/uL Neut % (Auto) (50-75) % Lymph % (Auto) (25-40) % [place] % (Auto) (3-14) % Eos % (Auto) (2-4) % Baso % (Auto) (0-2) % Neut # (Auto) (5255-7204) /uL Lymph # (Auto) (3067-7132) /uL [place] # (Auto) (0-900) /uL Eos # (Auto) (0-450) /uL Baso # (Auto) (0-100) /uL PT (10.1-12.7) SECONDS INR (0.9-1.3) APTT (26.4-36.2) SECONDS Sodium (137-145) mmol/L Potassium (3.4-5.1) mmol/L Chloride (98-107) mmol/L Carbon Dioxide (22-32) mmol/L BUN (9-20) mg/dL Creatinine (0.66-1.25) mg/dL Estimated GFR (>60) mL/min BUN/Creatinine Ratio (6-22) Glucose (70-100) mg/dL Calcium (8.4-10.2) mg/dL Total Bilirubin (0.2-1.3) mg/dL AST (17-59) IU/L ALT (<50) IU/L Alkaline Phosphatase (38-126) U/L Total Creatine Kinase 373 H (55-170) U/L CK-MB (CK-2) 4.05 H (<2.37) ng/mL CK-MB (CK-2) Rel Index 1.1 L (1.5-5.0) % Troponin I < 0.012 (0.01-0.034) ng/mL Total Protein (6.3-8.2) g/dL Albumin (3.5-5.0) g/dL Globulin (1.7-4.1) g/dL Albumin/Globulin Ratio (1.0-2.8) Lipase (23-300) U/L Point of care testing: Urine Dip Bedside Urine Glucose Negative Bedside Urine Bilirubin - Negative Bedside Urine Ketone - Negative Urine Specific [place] 1.010 Bedside Urine Occult Blood ++ Bedside Urine pH 6.5 Bedside Urine Protein - Negative Bedside Urine Urobilinogen - Negative Bedside Urine Nitrite - Negative Bedside Urine Leukocytes + 70 Esterase Imaging Data Chest x-ray: Attestation: I personally reviewed and interpreted this imaging study as follows: My Impression: nap. CT scan - abdomen/pelvis: Radiologist's Impression: Is CT abdomen pelvis shows no appendix abnormality appreciated incompletely visualized. There is a large fecal burden, possible constipation with no other findings specifically for right-sided pain. ECG Data Attestation: I personally reviewed and interpreted this ECG as follows: Prior ECG tracings: available for review Interpretation: Sinus rhythm with a rate of 67 WI 118 QRS of 96 and QTC of 407. No ST changes or elevation or depression noted. Patient has a prior EKG from 08/25/2018 which appears very similar. [facility] Narrative Medical decision making narrative: Patient fell asleep shortly after arrival and held pain medications. Fluids started. Patient awakened for CT and complaining of pain and given medications. Patient has had ketorolac multiple visits in the past with no reaction although he does have a documented allergy to ibuprofen, naproxen as well as codeine and morphine. Patient then fell asleep again after return from CT. Patient's labs show hemoglobin of 13.3 which appears consistent with priors, no leukocytosis, them the sites are 24%, coags were normal with CMP showing a chloride of 110, glucose of 103 with normal renal function and electrolytes, patient does have a total elevated CK with a CK-MB of 4 and a troponin of less than 0.012 and no new EKG changes, lipase is negative. Chest x-ray does not show any acute changes. Patient has had pain in his left chest for 3 days and my suspicion for cardiac cause is low. Patient's CT imaging shows a lot of fecal burden this could potentially be cause of patient's abdominal pain no other acute findings are found today. Aorta and inferior vena cava are unremarkable. No Kidney stones noted. Stomach and small bowel are unremarkable otherwise. Urine shows blood and leuks but patient is has not had any urinary symptoms. Suspect pain is more related to fecal load and urine culture sent. Patient states he is feeling better, discussed findings. Patient comfortable returning home. Given rx for miralax and bentyl as he complains of cramping. Patient comfortable with discharge. Discharge Plan Departure Patient Disposition: Home Clinical Impression: Constipation Abdominal pain Qualifiers: Abdominal location: right lower quadrant Qualified Code(s): R10.31 - Right lower quadrant pain Instructions: DI for Abdominal Pain-Adult Activity Restrictions/Additional Instructions: Follow up with your physician in the next 2-3 days for recheck, call Tuesday morning for an appointment. If you are not having soft, regular stools add a stool softner such as miralax once daily, increase fiber in your diet and increase your fluids intake. You may take bentyl every 8 hours as needed for cramping. Return to the ER for fevers greater than 100.4F, lightheadedness, passing out, new chest pain or shortness of breath, worsening abdominal or flank pain, persistent vomiting, black or bloody stools, inability to urinate or other new or concerning symptoms. Prescriptions: New polyethylene glycol 3350 [Miralax] 17 gram/dose powder 17 gram PO DAILY Qty: 1 RF: 0 dicyclomine 10 mg capsule 10 mg PO TID PRN (Reason: cramping) Qty: 10 RF: 0 No Action fluoxetine 20 MG capsule 40 mg PO QDAY Qty: 60 RF: 2 levothyroxine 50 MCG tablet 50 mcg PO QAM Qty: 0 RF: 0 aspirin 81 mg Tablet,Delayed Release (Dr/Ec) 81 mg PO DAILY RF: 0 nitroglycerin [Nitrostat] 0.4 MG tablet, sublingual 0.4 mg Sublingual PRN PRN (Reason: Chest Pain) RF: 0 metoprolol succinate [Toprol XL] 25 MG tablet extended release 24 hr 25 mg PO DAILY RF: 0
--- NOTE | 2019-07-01 03:26 | DI.CT.S_ITS ---
PROCEDURE: CT ABDOMEN PELVIS W CON INDICATIONS: Right sided abdominal pain TECHNIQUE: After the administration of intravenous contrast, 5 mm thick sections acquired from the diaphragm to the symphysis. 5 mm coronal and sagittal reformats were acquired. For radiation dose reduction, the following was used: automated exposure control, adjustment of mA and/or kV according to patient size. COMPARISON: [facility], CT, CT KIDNEY URETER BLADDER (KUB), 01/23/2019, 14:37. [facility], CT, ABDOMEN/PELVIS WITH CONTRAST, 11/06/2008, 22:34. FINDINGS: Image quality: There is metallic streak artifact from patient's right hip prosthesis limiting evaluation. ABDOMEN: Lung bases: There is mild dependent atelectasis. Heart size is normal. Solid organs: Evaluation of the liver demonstrates no focal hepatic lesions. The gallbladder appears within normal limits without calcified gallstones. Biliary system is non-dilated. Pancreas enhances normally. No peripancreatic fat stranding or fluid collections. No pancreatic duct dilatation. The spleen is normal in size. No adrenal nodules. Kidneys demonstrate no hydronephrosis. Peritoneum and bowel: Bowel loops demonstrate normal wall thickness and caliber. No evidence of appendicitis. There is a moderate amount of colonic stool which may reflect constipation. No free fluid or air. Nodes and vessels: No retroperitoneal or mesenteric adenopathy by size criteria. Aorta and inferior vena cava are normal in size. Miscellaneous: No ventral hernias. PELVIS: Genitourinary: Bladder wall thickness is normal. Miscellaneous: No inguinal hernias or adenopathy. Bones: No suspicious bony lesions. No vertebral body compression fractures. IMPRESSION: 1. No definite acute intra-abdominal abnormality 2 correlate with patient's abdominal pain. Specifically, no definite evidence of appendicitis. 2. Moderate colonic stool distention may reflect constipation. Concordant with preliminary interpretation. Dictated by: Chad Garcia M.D. on 07/01/2019 at 6:50 Approved by: Chad Garcia M.D. on 07/01/2019 at 6:54
--- NOTE | 2019-07-01 03:26 | DI.RAD.S_ITS ---
PROCEDURE: XR CHEST 1V INDICATIONS: abdominal pain, chest pain TECHNIQUE: One view of the chest was acquired. COMPARISON: [facility], CR, XR CHEST 1V, 05/13/2018, 22:12. FINDINGS: Surgical changes and devices: There are multiple overlying leads and wires slightly limiting evaluation. Lungs and pleura: Lungs are clear. No pleural effusions or pneumothorax. Mediastinum: Mediastinal contours appear normal. Heart size is normal. Bones and chest wall: No suspicious bony lesions. Overlying soft tissues appear unremarkable. IMPRESSION: 1. No acute cardiopulmonary disease. Dictated by: Chad Garcia M.D. on 07/01/2019 at 7:32 Approved by: Chad Garcia M.D. on 07/01/2019 at 7:37
[2019-07-01 03:43] LABS: Add Manual Diff / Slide Review NO; Basophils Absolute Auto 0 /uL (0-100); Basophils Percent Auto 0.3 % (0-2); Eosinophils Absolute Auto 200 /uL (0-450); Eosinophils Percent Auto 2.6 % (2-4); Hematocrit 38.9 % (41-53); Hemoglobin 13.3 g/dL (13.5-17.5); Lymphocytes Absolute Auto 2100 /uL (1100-4500); Lymphocytes Percent Auto 24.3 % (25-40); Mean Corpuscular HGB Conc 34.2 % (30-36); Mean Corpuscular Hemoglobin 29.5 PG (26-34); Mean Corpuscular Volume 86.4 fL (80-100); Monocytes Absolute Auto 500 /uL (0-900); Monocytes Percent Auto 5.6 % (3-14); Neutrophils Absolute Auto 5800 /uL (1500-7000); Neutrophils Percent Auto 67.2 % (50-75); Platelet Count 332 X10^3/uL (150-400); Red Cell Distribution Width 14.9 % (11.6-14.8); White Blood Cell Count 8.6 X10^3/uL (4.5-11.0)
[2019-07-01 03:46] LABS: Prothrombin Time 11.7 SECONDS (10.1-12.7)
[2019-07-01 03:48] LABS: PTT Partial Thromboplastin Tim 33 SECONDS (26.4-36.2)
[2019-07-01] MEDS: SODIUM CHLORIDE 0.9% 1,000 ML 1000 ML IV (03:48)
[2019-07-01 03:49] LABS: Alanine Aminotransferase 17 IU/L (<50); Albumin Globulin Ratio 1.1 (1.0-2.8); Alkaline Phosphatase 100 U/L (38-126); Aspartate Aminotransferase 31 IU/L (17-59); BUN Creatinine Ratio 13.3 (6-22); Bilirubin Total 0.4 mg/dL (0.2-1.3); Blood Urea Nitrogen 12 mg/dL (9-20); Calcium 8.8 mg/dL (8.4-10.2); Carbon Dioxide 25 mmol/L (22-32); Chloride 110 mmol/L (98-107); Estimated Glomerular Filt Rate > 60.0 mL/min (>60); Globulin 3.6 g/dL (1.7-4.1); Glucose 103 mg/dL (70-100); HEMOLYSIS < 15 (0-50); Lipase 109 U/L (23-300); Potassium 3.9 mmol/L (3.4-5.1); Sodium 141 mmol/L (137-145); Total Protein 7.6 g/dL (6.3-8.2)
[2019-07-01] MEDS: PANTOPRAZOLE 40 MG VIAL IV (03:49)
[2019-07-01 03:50] LABS: Creatine Kinase 373 U/L (55-170)
[2019-07-01] MEDS: KETOROLAC 60 MG/2 ML VIAL 15 MG IV (03:50)
[2019-07-01 04:01] LABS: Troponin I < 0.012 ng/mL (0.01-0.034)
[2019-07-01 04:05] LABS: CKMB % Relative Index 1.1 % (1.5-5.0); Creatine Kinase MB 4.05 ng/mL (<2.37)
[2019-07-01 04:23] VITALS: BP 139/79; PULSE 66; RESP 17; O2SAT 99
[2019-07-01 05:35] LABS: Bacteria Urine None Seen
[2019-07-01 05:37] VITALS: BP 140/86; PULSE 55; RESP 22; O2SAT 95
[2019-07-01 06:00] LABS: Culture Indicated Urine Specimen Cultured; RBC Urine 1-5/HPF (0-5/HPF); WBC Urine 0-1/HPF (0-5/HPF)
== END 2019-07-01 06:00 | disposition home or self-care (01) ==
PROVIDERS: Emergency Provider Emergency Medicine; Family Provider Family Medicine
DX: K59.00 Constipation, unspecified (principal); R10.31 Right lower quadrant pain
CPT/HCPCS: 36415; 71045; 74177; 80053; 81003; 81015; 82550; 82553; 83690; 84484; 85025; 85610; 85730; 87086; 93005; 96361; 96374; 96375; 99284; C9113; J1885; Q9967

== ENCOUNTER 2019-07-15 05:35 | Emergency (ER) | payer MEDICAID, OTHER, SELFPAY ==
[2019-07-15 05:44] VITALS: BP 143/83; PULSE 71; RESP 16; TEMP 36.6; O2SAT 96; BMI 21.9
--- NOTE | 2019-07-15 06:03 | ED.ABDPAIN ---
HPI - Abdominal Pain General Chief Complaint: Abdominal Pain Stated Complaint: Doesn't feel well. Time Seen by Provider: 07/15/19 05:52 Source: patient and EMS Mode of arrival: EMS Limitations: no limitations History of Present Illness HPI narrative: Patient is a 59-year-old male brought in by EMS for evaluation of a chief complaint of ?not feeling well ?patient difficult to obtain history from. He did have diarrhea yesterday. Had some abdominal pain and nausea vomiting today. He also states that he feels very lightheaded. He was at work when the symptoms started. No fevers. The ringing in his ears. No chest pain. No shortness of breath. Related Data Home Medications Medication Instructions Recorded Confirmed levothyroxine 50 mcg PO QAM #0 07/18/17 01/23/19 aspirin 81 mg PO DAILY 01/23/19 01/23/19 metoprolol succinate [Toprol XL] 25 mg PO DAILY 01/23/19 01/23/19 nitroglycerin [Nitrostat] 0.4 mg SUBLINGUAL PRN PRN 01/23/19 01/23/19 Previous Rx's Medication Instructions Recorded fluoxetine 40 mg PO QDAY #60 cap 05/26/17 dicyclomine 10 mg PO TID PRN #10 cap 07/01/19 polyethylene glycol 3350 [Miralax] 17 gram PO DAILY #1 package 07/01/19 Allergies Allergy/AdvReac Type Severity Reaction Status Date / Time morphine [MORPHINE] Allergy Severe CONVULSIONS, Verified 01/23/19 12:23 TROUBLE BREATHING codeine [CODEINE] Allergy Mild RASH, Verified 01/23/19 12:23 HIVES, ITCHING meperidine [MEPERIDINE] Allergy Mild NAUSEA, Verified 01/23/19 12:23 ITCHING, HIVES ibuprofen [IBUPROFEN] Allergy Unknown HIVES Verified 01/23/19 12:23 naproxen [NAPROXEN] Allergy Unknown HIVES Verified 01/23/19 12:23 Review of Systems Constitutional Constitutional: Denies fever(s) Cardiovascular Cardiovascular: Denies chest pain and Denies dyspnea Respiratory Respiratory: Denies dyspnea Gastrointestinal Gastrointestinal: Reports abdominal pain, Reports diarrhea, Reports nausea and Reports vomiting Genitourinary Genitourinary: Denies dysuria Musculoskeletal Musculoskeletal: Denies arthralgias Integumentary/Breasts Skin/Breast: Denies rash Neurologic Neurologic: Denies behavioral changes Psychiatric Psychiatric: Denies behavioral changes Hematologic/Lymphatic Hematologic/Lymphatic: Denies easy bleeding and Denies easy bruising Patient History Medical History Chronic back pain (Acute) Coronary arteriosclerosis in [place] artery (03/15/13) Degenerative disc disease (Chronic) Depression with anxiety (Chronic) Hypothyroidism (07/21/17) Social History Smoking Status: Current every day smoker alcohol intake: former substance use type: opiates Smoking Status: Current every day smoker alcohol intake frequency: 0-2 drinks per day Substance Use Type: marijuana Exam Initial Vital Signs Initial Vital Signs: Vital Signs Temperature 97.8 F 07/15/19 05:44 Pulse Rate 71 07/15/19 05:44 Respiratory Rate 16 07/15/19 05:44 Blood Pressure 143/83 H 07/15/19 05:44 Pulse Oximetry 96 07/15/19 05:44 Const General: cooperative Resp Effort & Inspection: normal respiratory effort Auscultation: clear to auscultation bilaterally Cardio Rate: regular rate Rhythm: regular rhythm GI Inspection: non-distended Palpation: firm and guarding Skin Lesions: no lesions Rashes: no rashes Neuro General: alert and awake Cognition: normal cognition Speech: speech normal Extrem General: capillary refill normal Psych Appearance: grossly normal and well kempt Course Orders Ordered: ED Orders 07/15/19 06:04 CT abdomen pelvis w con Stat EKG-12 Lead Stat 07/15/19 06:20 Complete Blood Count AUTO DIFF Stat Comprehensive Metabolic Panel Stat Lactate (Lactic Acid) Stat Lipase Stat Discontinued Medications Sodium Chloride (Normal Saline 0.9%) 1,000 mls @ 1,000 mls/hr IV BOLUS ONE Stop: 07/15/19 07:02 Last Admin: 07/15/19 06:30 Dose: 1,000 mls/hr Documented by: DULCE MARIA Ondansetron HCl (Zofran) 4 mg IV NOW ONE Stop: 07/15/19 06:04 Last Admin: 07/15/19 06:30 Dose: 4 mg Documented by: DULCE MARIA Vital Signs Vital signs: Vital Signs - 8 hr 07/15/19 05:44 Temperature 97.8 F Pulse Rate 71 Respiratory Rate 16 Blood Pressure 143/83 H Pulse Oximetry 96 MDM - Abdominal Pain Medical Records Attestation: I reviewed the patient's medical records. Lab Data Attestation: I reviewed the patient's lab results. Result diagrams: 07/15/19 06:20 07/15/19 06:20 Labs: Lab Results 07/15/19 07/15/19 07/15/19 Range/Units 06:20 06:20 06:20 WBC 8.8 (4.5-11.0) X10^3/uL RBC 4.55 (4.5-5.9) X10^6/uL Hgb 13.4 L (13.5-17.5) g/dL Hct 39.4 L (41-53) % MCV 86.7 (80-100) fL MCH 29.4 (26-34) PG MCHC 33.9 (30-36) % RDW 14.4 (11.6-14.8) % Plt Count 305 (150-400) X10^3/uL Neut % (Auto) 65.2 (50-75) % Lymph % (Auto) 27.4 (25-40) % [place] % (Auto) 5.3 (3-14) % Eos % (Auto) 1.7 L (2-4) % Baso % (Auto) 0.4 (0-2) % Neut # (Auto) 5700 (9345-6160) /uL Lymph # (Auto) 2400 (6026-7131) /uL [place] # (Auto) 500 (0-900) /uL Eos # (Auto) 100 (0-450) /uL Baso # (Auto) 0 (0-100) /uL Sodium 139 (137-145) mmol/L Potassium 3.7 (3.4-5.1) mmol/L Chloride 110 H (98-107) mmol/L Carbon Dioxide 26 (22-32) mmol/L BUN 15 (9-20) mg/dL Creatinine 0.83 (0.66-1.25) mg/dL Estimated GFR > 60.0 (>60) mL/min BUN/Creatinine Ratio 18.1 (6-22) Glucose 102 H (70-100) mg/dL Lactate 0.6 L (0.7-2.1) mmol/L Calcium 8.9 (8.4-10.2) mg/dL Total Bilirubin 0.4 (0.2-1.3) mg/dL AST 26 (17-59) IU/L ALT 17 (<50) IU/L Alkaline Phosphatase 93 (38-126) U/L Total Protein 7.6 (6.3-8.2) g/dL Albumin 4.0 (3.5-5.0) g/dL Globulin 3.6 (1.7-4.1) g/dL Albumin/Globulin Ratio 1.1 (1.0-2.8) Lipase 148 (23-300) U/L Imaging Data CT scan - abdomen/pelvis: Radiologist's Impression: [address] [address] [address] Scan Report Signed Patient: Red Lindquist [facility]#: [id number] : 2Acct:[id number] Age/Sex: 59 / MDate of Service: 07/15/19 Loc: ED Accession Number: [id number] Procedure: CT abdomen pelvis w con Ordering Provider: Ruddy Benavidez D.O. PROCEDURE: CT ABDOMEN PELVIS W CON INDICATIONS: Generalized abdominal pain with vomiting TECHNIQUE: After the administration of intravenous contrast, 5 mm thick sections acquired from the diaphragm to the symphysis. 5 mm coronal and sagittal reformats were acquired. For radiation dose reduction, the following was used: automated exposure control, adjustment of mA and/or kV according to patient size. COMPARISON: [facility], CT, CT ABDOMEN PELVIS W CON, 07/01/2019, 3:57. FINDINGS: Image quality: Excellent. ABDOMEN: Lung bases: Lung bases are clear. Heart size is normal. Solid organs: Liver is normal in size and enhancement. Gallbladder is unremarkable. Biliary system is non dilated. Pancreas enhances normally. Spleen is normal in size and enhancement. No adrenal nodules. Kidneys demonstrate normal size and enhancement, without hydronephrosis. Peritoneum and bowel: Bowel loops demonstrate normal wall thickness and caliber. No free fluid or air. Sigmoid diverticulosis without evidence of diverticulitis. Nodes and vessels: No retroperitoneal or mesenteric adenopathy by size criteria. Aorta and inferior vena cava are normal in size. Miscellaneous: No ventral hernias. PELVIS: Genitourinary: Bladder wall thickness is normal. Miscellaneous: No inguinal hernias or adenopathy. Bones: No suspicious bony lesions. No vertebral body compression fractures. Total right hip arthroplasty. Multilevel canal stenosis, severe at L2-L3 and L3-L4. IMPRESSION: 1. Sigmoid diverticulosis without evidence of diverticulitis. 2. No evidence acute abdominal process. 3. Multilevel canal stenosis, severe at L2-L3 and L3-L4. Dictated by: Gilmar Daniels M.D. on 07/15/2019 at 7:57 Approved by: Gilmar Daniels M.D. on 07/15/2019 at 8:00 ECG Data Attestation: I personally reviewed and interpreted this ECG as follows: Prior ECG tracings: not available for review Interpretation: Sinus rhythm Ventricular rate is 64 Normal axis Normal QRS Normal QTC No ST T wave changes MDM Narrative Medical decision making narrative: Labs unremarkable, EKG is unremarkable CT scan shows no acute pathology. Patient is sleeping in the room. States that he feels much better with regard all of his presenting symptoms. I feel that we can hold on further workup for now. Patient's nephew is here who can take him home. He was given return precautions. Expressed understanding and agreement. Discharge Plan Departure Patient Disposition: Home Clinical Impression: Nausea Abdominal pain Qualifiers: Abdominal location: generalized Qualified Code(s): R10.84 - Generalized abdominal pain Instructions: DI for Abdominal Pain-Adult, Nausea and Vomiting-Adult Activity Restrictions/Additional Instructions: Continue all of your medications as directed. Recommend you contact your primary provider for follow-up. Return to the emergency department for any new or worsening symptoms Prescriptions: No Action fluoxetine 20 MG capsule 40 mg PO QDAY Qty: 60 RF: 2 levothyroxine 50 MCG tablet 50 mcg PO QAM Qty: 0 RF: 0 polyethylene glycol 3350 [Miralax] 17 gram/dose powder 17 gram PO DAILY Qty: 1 RF: 0 dicyclomine 10 mg capsule 10 mg PO TID PRN (Reason: cramping) Qty: 10 RF: 0 aspirin 81 mg Tablet,Delayed Release (Dr/Ec) 81 mg PO DAILY RF: 0 nitroglycerin [Nitrostat] 0.4 MG tablet, sublingual 0.4 mg Sublingual PRN PRN (Reason: Chest Pain) RF: 0 metoprolol succinate [Toprol XL] 25 MG tablet extended release 24 hr 25 mg PO DAILY RF: 0
[2019-07-15] MEDS: SODIUM CHLORIDE 0.9% 1,000 ML 1000 ML IV (06:30)
[2019-07-15] MEDS: ONDANSETRON 4 MG/2 ML INJ IV (06:30)
[2019-07-15 06:37] LABS: Add Manual Diff / Slide Review NO; Basophils Absolute Auto 0 /uL (0-100); Basophils Percent Auto 0.4 % (0-2); Eosinophils Absolute Auto 100 /uL (0-450); Eosinophils Percent Auto 1.7 % (2-4); Hematocrit 39.4 % (41-53); Hemoglobin 13.4 g/dL (13.5-17.5); Lymphocytes Absolute Auto 2400 /uL (1100-4500); Lymphocytes Percent Auto 27.4 % (25-40); Mean Corpuscular HGB Conc 33.9 % (30-36); Mean Corpuscular Hemoglobin 29.4 PG (26-34); Mean Corpuscular Volume 86.7 fL (80-100); Monocytes Absolute Auto 500 /uL (0-900); Monocytes Percent Auto 5.3 % (3-14); Neutrophils Absolute Auto 5700 /uL (1500-7000); Neutrophils Percent Auto 65.2 % (50-75); Platelet Count 305 X10^3/uL (150-400); Red Blood Cell Count 4.55 X10^6/uL (4.5-5.9); Red Cell Distribution Width 14.4 % (11.6-14.8); White Blood Cell Count 8.8 X10^3/uL (4.5-11.0)
[2019-07-15 06:40] LABS: Lactate (Lactic Acid) 0.6 mmol/L (0.7-2.1)
[2019-07-15 06:41] LABS: Alanine Aminotransferase 17 IU/L (<50); Albumin Globulin Ratio 1.1 (1.0-2.8); Alkaline Phosphatase 93 U/L (38-126); Aspartate Aminotransferase 26 IU/L (17-59); BUN Creatinine Ratio 18.1 (6-22); Bilirubin Total 0.4 mg/dL (0.2-1.3); Blood Urea Nitrogen 15 mg/dL (9-20); Calcium 8.9 mg/dL (8.4-10.2); Carbon Dioxide 26 mmol/L (22-32); Chloride 110 mmol/L (98-107); Estimated Glomerular Filt Rate > 60.0 mL/min (>60); Globulin 3.6 g/dL (1.7-4.1); Glucose 102 mg/dL (70-100); HEMOLYSIS < 15 (0-50); Lipase 148 U/L (23-300); Potassium 3.7 mmol/L (3.4-5.1); Sodium 139 mmol/L (137-145); Total Protein 7.6 g/dL (6.3-8.2)
[2019-07-15 08:19] VITALS: BP 138/83; PULSE 74; RESP 18; O2SAT 98
== END 2019-07-15 08:19 | disposition home or self-care (01) ==
PROVIDERS: Emergency Provider Emergency Medicine; Family Provider Family Medicine
DX: R10.84 Generalized abdominal pain (principal); R11.0 Nausea
CPT/HCPCS: 36415; 74177; 80053; 83605; 83690; 85025; 93005; 96361; 96374; 99284; J2405; Q9967

== ENCOUNTER 2019-11-04 19:43 | Emergency (ER) | payer MEDICAID, OTHER, SELFPAY ==
[2019-11-04] VITALS (8 sets, daily range): BP systolic 107–137; BP diastolic 72–89; PULSE 72–86; RESP 14–27; TEMP 36.6–36.7; O2SAT 92–99
--- NOTE | 2019-11-04 19:49 | DI.RAD.S_ITS ---
PROCEDURE: XR FOREARM RT 2V INDICATIONS: eval for fracture TECHNIQUE: 2 views of the forearm were acquired. COMPARISON: None. FINDINGS: Bones: No fractures or dislocations. No suspicious bony lesions. Soft tissues: No suspicious soft tissue calcifications or masses. IMPRESSION: No acute fracture. No osseous lesion. If symptoms and/or clinical suspicion for pathology persist, further assessment with repeat, or advanced imaging (e.g., CT, MRI, or bone scan) may be helpful for further assessment. Dictated by: Sue Gray M.D. on 11/04/2019 at 20:27 Approved by: Sue Gray M.D. on 11/04/2019 at 20:27
--- NOTE | 2019-11-04 19:49 | DI.RAD.S_ITS ---
PROCEDURE: XR HUMERUS LT 2V INDICATIONS: eval for fracture TECHNIQUE: 2 views of the humerus were acquired. COMPARISON: None. FINDINGS: Bones: No fractures or dislocations. No suspicious bony lesions. Soft tissues: No suspicious soft tissue calcifications. IMPRESSION: No acute fracture. No osseous lesion. If symptoms and/or clinical suspicion for pathology persist, further assessment with repeat, or advanced imaging (e.g., CT, MRI, or bone scan) may be helpful for further assessment. Dictated by: Sue Gray M.D. on 11/04/2019 at 20:27 Approved by: Sue Gray M.D. on 11/04/2019 at 20:28
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
[2019-11-04 19:58] LABS: Add Manual Diff / Slide Review NO; Basophils Absolute Auto 0 /uL (0-100); Basophils Percent Auto 0.3 % (0-2); Eosinophils Absolute Auto 100 /uL (0-450); Eosinophils Percent Auto 1.7 % (2-4); Hematocrit 41.2 % (41-53); Lymphocytes Absolute Auto 4200 /uL (1100-4500); Lymphocytes Percent Auto 47.2 % (25-40); Mean Corpuscular HGB Conc 34.1 % (30-36); Mean Corpuscular Hemoglobin 29.3 PG (26-34); Monocytes Absolute Auto 600 /uL (0-900); Neutrophils Absolute Auto 3900 /uL (1500-7000); Neutrophils Percent Auto 43.8 % (50-75); Platelet Count 317 X10^3/uL (150-400); Red Blood Cell Count 4.79 X10^6/uL (4.5-5.9); White Blood Cell Count 8.9 X10^3/uL (4.5-11.0)
[2019-11-04 20:05] LABS: Alanine Aminotransferase 16 IU/L (<50); Albumin 4.2 g/dL (3.5-5.0); Albumin Globulin Ratio 1.1 (1.0-2.8); Alkaline Phosphatase 106 U/L (38-126); Aspartate Aminotransferase 32 IU/L (17-59); BUN Creatinine Ratio 14.4 (6-22); Bilirubin Total 0.5 mg/dL (0.2-1.3); Blood Urea Nitrogen 14 mg/dL (9-20); Calcium 9.5 mg/dL (8.4-10.2); Carbon Dioxide 25 mmol/L (22-32); Chloride 107 mmol/L (98-107); Estimated Glomerular Filt Rate > 60.0 mL/min (>60); Ethanol (ETOH) < 10 mg/dL; Globulin 3.8 g/dL (1.7-4.1); Glucose 101 mg/dL (70-100); HEMOLYSIS < 15 (0-50); Lipase 143 U/L (23-300); Potassium 4.3 mmol/L (3.4-5.1); Sodium 140 mmol/L (137-145)
[2019-11-04] MEDS: SODIUM CHLORIDE 0.9% 1,000 ML 1000 ML IV (20:22)
--- NOTE | 2019-11-04 20:36 | PC.NURSE ---
CCollar removed by Dr Benavidez
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
== END 2019-11-04 21:58 | disposition home or self-care (01) ==
PROVIDERS: Emergency Provider Emergency Medicine; Family Provider Family Medicine
DX: S40.022A Contusion of left upper arm, initial encounter (principal); S80.12XA Contusion of left lower leg, initial encounter; S09.90XA Unspecified injury of head, initial encounter; V03.10XA Pedestrian on foot injured in collision with car, pick-up truck or van in traffic accident, initial encounter
CPT/HCPCS: 36415; 70450; 71045; 72125; 73060; 73090; 73552; 74177; 80053; 80320; 83690; 85025; 96360; 99285; Q9967

== ENCOUNTER → 2020-07-01 14:21 | Outpatient (ROUT) | payer MEDICAID, OTHER, SELFPAY ==
[2020-07-03 15:13] LABS: Vitamin B1 116.7 nmol/L (66.5-200.0)
== END ==
PROVIDERS: Family Provider Family Medicine; Visit Provider Physician Assistant
DX: R55 Syncope and collapse (principal)
CPT/HCPCS: 84425

== ENCOUNTER → 2021-02-19 12:34 | Outpatient (CLI) | payer MEDICAID, OTHER, SELFPAY ==
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
== END ==
PROVIDERS: Family Provider Family Medicine; PCP Family Medicine; Referring Provider Family Medicine; Visit Provider Family Medicine
DX: M25.572 Pain in left ankle and joints of left foot (principal); M25.571 Pain in right ankle and joints of right foot; M25.551 Pain in right hip; Z96.641 Presence of right artificial hip joint
CPT/HCPCS: 73502; 73610

== ENCOUNTER 2021-07-07 15:17 | Emergency (ER) | payer MEDICAID, OTHER, SELFPAY ==
[2021-07-07] VITALS (7 sets, daily range): BP systolic 126–157; BP diastolic 62–81; PULSE 67–80; RESP 20–30; TEMP 37.2; O2SAT 96–99; BMI 22.4
[2021-07-07 16:23] LABS: Add Manual Diff / Slide Review NO; Basophils Absolute Auto 0 /uL (0-100); Basophils Percent Auto 0.4 % (0-2); Eosinophils Absolute Auto 100 /uL (0-450); Eosinophils Percent Auto 0.6 % (2-4); Hematocrit 35.5 % (41-53); Hemoglobin 11.8 g/dL (13.5-17.5); Lymphocytes Absolute Auto 2600 /uL (1100-4500); Lymphocytes Percent Auto 31.7 % (25-40); Mean Corpuscular HGB Conc 33.3 % (30-36); Mean Corpuscular Hemoglobin 27.9 PG (26-34); Mean Corpuscular Volume 83.7 fL (80-100); Monocytes Absolute Auto 500 /uL (0-900); Monocytes Percent Auto 6.6 % (3-14); Neutrophils Absolute Auto 5000 /uL (1500-7000); Neutrophils Percent Auto 60.7 % (50-75); Platelet Count 317 X10^3/uL (150-400); Red Blood Cell Count 4.24 X10^6/uL (4.5-5.9); Red Cell Distribution Width 15.4 % (11.6-14.8); White Blood Cell Count 8.3 X10^3/uL (4.5-11.0)
[2021-07-07 17:47] LABS: Alanine Aminotransferase 18 IU/L (<50); Albumin 4.3 g/dL (3.5-5.0); Albumin Globulin Ratio 1.2 (1.0-2.8); Alkaline Phosphatase 89 U/L (38-126); Aspartate Aminotransferase 41 IU/L (17-59); BUN Creatinine Ratio 12.4 (6-22); Bilirubin Total 0.5 mg/dL (0.2-1.3); Blood Urea Nitrogen 14 mg/dL (9-20); Carbon Dioxide 23 mmol/L (22-32); Chloride 107 mmol/L (98-107); Estimated Glomerular Filt Rate > 60.0 mL/min (>60); Globulin 3.7 g/dL (1.7-4.1); Glucose 83 mg/dL (80-110); HEMOLYSIS < 15 (0-50); Lipase 119 U/L (23-300); Potassium 4.1 mmol/L (3.4-5.1); Sodium 137 mmol/L (137-145)
--- NOTE | 2021-07-07 18:09 | DI.CT.S_ITS ---
PROCEDURE: CT ABDOMEN PELVIS W CON INDICATIONS: Abdominal pain, nausea TECHNIQUE: After the administration of intravenous contrast, axial sections acquired from the lung bases to the pubic symphysis. Coronal and sagittal reformats were performed. For radiation dose reduction, the following was used: automated exposure control, adjustment of mA and/or kV according to patient size. COMPARISON: [facility], CT, CT ABDOMEN PELVIS W CON, 11/04/2019, 19:50. FINDINGS: Image quality: Excellent. Lung bases: Unremarkable. Heart: No significant findings. ABDOMEN: Liver: Unremarkable. Gallbladder: Unremarkable Biliary ducts: Unremarkable. Pancreas: Unremarkable. Spleen: Unremarkable. Adrenal Glands: Unremarkable. Kidneys and Ureters: Kidneys are symmetric in size and enhancement, and there is no obstructive uropathy. No perinephric inflammatory changes. Ureters are normal in course and caliber. Stomach and Bowel: Stomach, small bowel loops, and colon are unremarkable. No evidence for bowel obstruction. Normal appendix. Peritoneum: No abnormal intraperitoneal fluid. No free air. Ventral Wall: No hernias. Abdominal Nodes: No retroperitoneal or mesenteric adenopathy by size criteria. Vessels: Scattered atherosclerotic calcifications of the abdominal aorta and iliac vessels without aneurysmal dilatation. The inferior vena cava appears patent. PELVIS: Pelvic Organs: Unremarkable. Bladder: Unremarkable. Pelvic Nodes: No enlarged lymph nodes. Miscellaneous: No hernias are seen. Bones: No acute vertebral body compression fractures. Multilevel spondylitic changes throughout the imaged spine. No suspicious osseous lesions. Status post right total hip arthroplasty. IMPRESSION: CT abdomen and pelvis without acute abnormalities to explain patient's symptoms. No evidence for acute inflammatory changes. No evidence for bowel obstruction. No evidence for obstructive uropathy. Dictated by: Marcos Zurita M.D. on 07/07/2021 at 18:37 Approved by: Marcos Zurita M.D. on 07/07/2021 at 18:40
--- NOTE | 2021-07-07 18:26 | ED_ITS ---
HPI - Abdominal Pain <Bridgette Cooper PA-C - Last Filed: 07/07/21 19:30> General Chief Complaint: Abdominal Pain Stated Complaint: belly pain Time Seen by Provider: 07/07/21 17:10 Source: patient Mode of arrival: Ambulatory History of Present Illness HPI narrative: 61-year-old male with past medical history hypothyroidism, CAD, alcohol withdrawal, benzodiazepine withdrawal, depression presents to the ED with 3 weeks of generalized abdomen pain. Patient denies fever, chills, chest pain, shortness of breath, flank pain, dysuria, vomiting, diarrhea, constipation, melena, hematochezia, lightheadedness, dizziness. Patient states that when his pain gets really bad, he has collapsed to the floor. Patient is a poor historian, it is unclear if it was syncope versus falling to the floor due to pain. Patient is unable to pinpoint what area of his abdomen hurts. Patient was diagnosed with COVID 4 weeks ago. Patient denies alcohol use for the last 3 years. Patient is ED marijuana user. Patient is a daily smoker. Patient denies other recreational drugs. Related Data Home Medications Medication Instructions Recorded Confirmed levothyroxine 50 mcg tablet 50 mcg PO QAM #0 07/18/17 01/23/19 aspirin 81 mg tablet,delayed 81 mg PO DAILY 01/23/19 01/23/19 release metoprolol succinate 25 mg 25 mg PO DAILY 01/23/19 01/23/19 tablet,extended release 24 hr (Toprol XL) nitroglycerin 0.4 mg sublingual 0.4 mg SUBLINGUAL PRN PRN 01/23/19 01/23/19 tablet (Nitrostat) Previous Rx's Medication Instructions Recorded fluoxetine 20 mg capsule 40 mg PO QDAY #60 cap 05/26/17 dicyclomine 10 mg capsule 10 mg PO TID PRN #10 cap 07/01/19 polyethylene glycol 3350 17 17 gram PO DAILY #1 package 07/01/19 gram/dose oral powder (Miralax) Allergies Allergy/AdvReac Type Severity Reaction Status Date / Time morphine [MORPHINE] Allergy Severe CONVULSIONS, Verified 01/23/19 12:23 TROUBLE BREATHING codeine [CODEINE] Allergy Mild RASH, Verified 01/23/19 12:23 HIVES, ITCHING meperidine [MEPERIDINE] Allergy Mild NAUSEA, Verified 01/23/19 12:23 ITCHING, HIVES ibuprofen [IBUPROFEN] Allergy Unknown HIVES Verified 01/23/19 12:23 naproxen [NAPROXEN] Allergy Unknown HIVES Verified 01/23/19 12:23 Review of Systems <Bridgette Cooper PA-C - Last Filed: 07/07/21 19:30> Review of Systems ROS Unobtainable: All systems reviewed & are unremarkable except as noted in HPI and below Constitutional Constitutional: Denies chills, Denies fatigue, Denies fever(s), Denies frequent falls, Denies lethargy and Denies weakness Eyes Eyes: Denies change in vision, Denies eye discharge, Denies irritation and Denies loss of vision ENT Ears, Nose, Mouth, and Throat: Denies change in voice, Denies dizziness, Denies neck pain, Denies sore throat and Denies throat swelling Cardiovascular Cardiovascular: Denies chest pain, Denies irregular heart rhythm, Denies lightheadedness, Denies palpitations, Denies dyspnea, Denies dyspnea on exertion and Denies orthopnea Respiratory Respiratory: Denies cough, Denies dyspnea, Denies dyspnea on exertion and Denies wheezing Gastrointestinal Gastrointestinal: Reports abdominal pain, Denies change in bowel habits, Denies diarrhea, Reports nausea and Denies vomiting Genitourinary Genitourinary: Denies hematuria, Denies dysuria, Denies flank pain, Reports urinary frequency, Denies urinary incontinence and Denies urinary urgency Musculoskeletal Musculoskeletal: Denies back pain, Denies muscle weakness, Denies neck pain, Denies numbness and Denies tingling Integumentary/Breasts Skin/Breast: Denies pruritus, Denies erythema, Denies rash and Denies wounds Neurologic Neurologic: Denies behavioral changes, Denies confusion, Denies dizziness, Denies frequent falls, Denies loss of vision, Denies numbness, Denies tingling and Denies weakness Psychiatric Psychiatric: Denies anxiety, Denies behavioral changes, Denies confusion, Denies depression, Denies homicidal ideation and Denies suicidal ideation Endocrine Endocrine: Denies fatigue, Denies flushing and Denies palpitations Hematologic/Lymphatic Hematologic/Lymphatic: Denies easy bruising Allergic/Immunologic Allergic/Immunologic: Denies urticaria, Denies throat swelling and Denies wheezing Patient History <Bridgette Cooper PA-C - Last Filed: 07/07/21 19:30> Medical History (Updated 07/07/21 @ 19:07 by Bridgette Cooper PA-C) Chronic back pain Coronary arteriosclerosis in [place] artery (03/15/13) Degenerative disc disease Depression with anxiety Hypothyroidism (07/21/17) Surgical History History of bilateral total hip arthroplasty History of ear surgery Social History Smoking Status: Current every day smoker alcohol intake: former substance use type: opiates Smoking Status: Current every day smoker alcohol intake frequency: 0-2 drinks per day Substance Use Type: marijuana Exam <Bridgette Cooper PA-C - Last Filed: 07/07/21 19:30> Initial Vital Signs Initial Vital Signs: Vital Signs Temperature 98.9 F 07/07/21 15:37 Pulse Rate 77 07/07/21 15:37 Respiratory Rate 20 07/07/21 15:37 Blood Pressure 127/73 07/07/21 15:37 Pulse Oximetry 98 07/07/21 15:37 Const General: cooperative and healthy appearing [facility] Head: normal to inspection Eyes General: appearance normal, both eyes and all related structures Neck Neck: normal visual inspection Chest Chest: normal inspection of the chest Resp Effort & Inspection: normal respiratory effort Auscultation: clear to auscultation bilaterally Cardio Rate: regular rate Rhythm: regular rhythm GI Other: No abdominal scars. Patient's abdomen is soft, nondistended. Patient is diffusely tender to palpation, especially in the left lower quadrant. No CVA tenderness. General: No CVA tenderness Skin General: no rashes or lesions noted Neuro General: patient alert, patient awake and patient oriented x3 Psych Appearance: grossly normal Mental Status: mental status grossly normal <Sun Fox DO - Last Filed: 07/08/21 07:38> Initial Vital Signs Initial Vital Signs: Vital Signs Temperature 98.9 F 07/07/21 15:37 Pulse Rate 77 07/07/21 15:37 Respiratory Rate 20 07/07/21 15:37 Blood Pressure 127/73 07/07/21 15:37 Pulse Oximetry 98 07/07/21 15:37 Course <Bridgette Cooper PA-C - Last Filed: 07/07/21 19:30> Orders Ordered: Discontinued Medications Ketorolac Tromethamine (Ketorolac 30 Mg/Ml Vial) 15 mg IV NOW ONE Stop: 07/07/21 18:14 Last Admin: 07/07/21 18:32 Dose: 15 mg Documented by: ALEXEI Vital Signs Vital signs: Vital Signs - 8 hr 07/07/21 15:37 07/07/21 17:54 07/07/21 17:55 Temperature 98.9 F Pulse Rate 77 67 67 Respiratory Rate 20 Blood Pressure 127/73 157/81 H Pulse Oximetry 98 99 99 07/07/21 18:00 07/07/21 18:30 07/07/21 19:00 Temperature Pulse Rate 69 80 67 Respiratory Rate 23 20 Blood Pressure 145/80 H Pulse Oximetry 97 96 96 07/07/21 19:14 Temperature Pulse Rate 67 Respiratory Rate 30 H Blood Pressure 126/62 Pulse Oximetry 97 <Sun Fox DO - Last Filed: 07/08/21 07:38> Orders Ordered: Discontinued Medications Ketorolac Tromethamine (Ketorolac 30 Mg/Ml Vial) 15 mg IV NOW ONE Stop: 07/07/21 18:14 Last Admin: 07/07/21 18:32 Dose: 15 mg Documented by: AELXEI Vital Signs Vital signs: Vital Signs - 8 hr 07/07/21 15:37 07/07/21 17:54 07/07/21 17:55 Temperature 98.9 F Pulse Rate 77 67 67 Respiratory Rate 20 Blood Pressure 127/73 157/81 H Pulse Oximetry 98 99 99 07/07/21 18:00 07/07/21 18:30 07/07/21 19:00 Temperature Pulse Rate 69 80 67 Respiratory Rate 23 20 Blood Pressure 145/80 H Pulse Oximetry 97 96 96 07/07/21 19:14 Temperature Pulse Rate 67 Respiratory Rate 30 H Blood Pressure 126/62 Pulse Oximetry 97 MDM - Abdominal Pain <Bridgette Cooper PA-C - Last Filed: 07/07/21 19:30> Lab Data Lab results narrative: Labs within normal limits. UA negative for UTI Result diagrams: 07/07/21 15:45 07/07/21 15:45 Labs: Lab Results 07/07/21 07/07/21 07/07/21 Range/Units 15:45 15:45 15:45 WBC 8.3 (4.5-11.0) X10^3/uL RBC 4.24 L (4.5-5.9) X10^6/uL Hgb 11.8 L (13.5-17.5) g/dL Hct 35.5 L (41-53) % MCV 83.7 (80-100) fL MCH 27.9 (26-34) PG MCHC 33.3 (30-36) % RDW 15.4 H (11.6-14.8) % Plt Count 317 (150-400) X10^3/uL Neut % (Auto) 60.7 (50-75) % Lymph % (Auto) 31.7 (25-40) % Smyth % (Auto) 6.6 (3-14) % Eos % (Auto) 0.6 L (2-4) % Baso % (Auto) 0.4 (0-2) % Neut # (Auto) 5000 (1160-5372) /uL Lymph # (Auto) 2600 (5986-2579) /uL Smyth # (Auto) 500 (0-900) /uL Eos # (Auto) 100 (0-450) /uL Baso # (Auto) 0 (0-100) /uL Sodium 137 (137-145) mmol/L Potassium 4.1 (3.4-5.1) mmol/L Chloride 107 (98-107) mmol/L Carbon Dioxide 23 (22-32) mmol/L BUN 14 (9-20) mg/dL Creatinine 1.13 (0.66-1.25) mg/dL Estimated GFR > 60.0 (>60) mL/min BUN/Creatinine Ratio 12.4 (6-22) Glucose 83 (80-110) mg/dL Lactate 0.6 L (0.7-2.1) mmol/L Calcium 9.0 (8.4-10.2) mg/dL Total Bilirubin 0.5 (0.2-1.3) mg/dL AST 41 (17-59) IU/L ALT 18 (<50) IU/L Alkaline Phosphatase 89 (38-126) U/L Total Protein 8.0 (6.3-8.2) g/dL Albumin 4.3 (3.5-5.0) g/dL Globulin 3.7 (1.7-4.1) g/dL Albumin/Globulin Ratio 1.2 (1.0-2.8) Lipase 119 (23-300) U/L Urine Color Urine Appearance Urine pH (4.5-8.0) Ur Specific [place] (1.000-1.035) Urine Protein (Negative) Urine Glucose (UA) (Negative) g/dL Urine Ketones (NEGATIVE) Urine Occult Blood (Negative) Urine Nitrate (Negative) Urine Bilirubin (NEGATIVE) Urine Urobilinogen (0.2) E.U./dL Ur Leukocyte Esterase (NEGATIVE) Urine RBC (0-5/HPF) Urine WBC (0-5/HPF) Urine Bacteria (None) Ur Culture Indicated? 07/07/21 Range/Units 18:12 WBC (4.5-11.0) X10^3/uL RBC (4.5-5.9) X10^6/uL Hgb (13.5-17.5) g/dL Hct (41-53) % MCV (80-100) fL MCH (26-34) PG MCHC (30-36) % RDW (11.6-14.8) % Plt Count (150-400) X10^3/uL Neut % (Auto) (50-75) % Lymph % (Auto) (25-40) % Smyth % (Auto) (3-14) % Eos % (Auto) (2-4) % Baso % (Auto) (0-2) % Neut # (Auto) (2259-4276) /uL Lymph # (Auto) (6442-3575) /uL Smyth # (Auto) (0-900) /uL Eos # (Auto) (0-450) /uL Baso # (Auto) (0-100) /uL Sodium (137-145) mmol/L Potassium (3.4-5.1) mmol/L Chloride (98-107) mmol/L Carbon Dioxide (22-32) mmol/L BUN (9-20) mg/dL Creatinine (0.66-1.25) mg/dL Estimated GFR (>60) mL/min BUN/Creatinine Ratio (6-22) Glucose (80-110) mg/dL Lactate (0.7-2.1) mmol/L Calcium (8.4-10.2) mg/dL Total Bilirubin (0.2-1.3) mg/dL AST (17-59) IU/L ALT (<50) IU/L Alkaline Phosphatase (38-126) U/L Total Protein (6.3-8.2) g/dL Albumin (3.5-5.0) g/dL Globulin (1.7-4.1) g/dL Albumin/Globulin Ratio (1.0-2.8) Lipase (23-300) U/L Urine Color Yellow Urine Appearance Clear Urine pH 5.5 (4.5-8.0) Ur Specific [place] 1.020 (1.000-1.035) Urine Protein Negative (Negative) Urine Glucose (UA) Negative (Negative) g/dL Urine Ketones Negative (NEGATIVE) Urine Occult Blood 3+ H (Negative) Urine Nitrate Negative (Negative) Urine Bilirubin Negative (NEGATIVE) Urine Urobilinogen 0.2 (0.2) E.U./dL Ur Leukocyte Esterase Negative (NEGATIVE) Urine RBC 30-100/hpf H (0-5/HPF) Urine WBC 0-1/hpf (0-5/HPF) Urine Bacteria None seen (None) Ur Culture Indicated? Cult not indicated Imaging Data CT scan - abdomen/pelvis: Radiologist's Impression: PROCEDURE:? CT ABDOMEN PELVIS W CON ? INDICATIONS:? Abdominal pain, nausea ? TECHNIQUE:? After the administration of intravenous contrast, axial sections acquired from the lung bases to the pubic symphysis.? Coronal and sagittal reformats were performed.? For radiation dose reduction, the following was used:? automated exposure control, adjustment of mA and/or kV according to patient size.? ? COMPARISON:? [facility], CT, CT ABDOMEN PELVIS W CON, 11/04/2019, 19:50. ? FINDINGS:? Image quality:? Excellent.? ? Lung bases:? Unremarkable. Heart:? No significant findings. ? ABDOMEN: Liver:? Unremarkable.? ? Gallbladder:? Unremarkable? ? Biliary ducts:? Unremarkable.? ? Pancreas:? Unremarkable.? ? Spleen:? Unremarkable.? ? Adrenal Glands:? Unremarkable.? ? Kidneys and Ureters: Kidneys are symmetric in size and enhancement, and there is no obstructive uropathy.? No perinephric inflammatory changes. Ureters are normal in course and caliber.? ? Stomach and Bowel:? Stomach, small bowel loops, and colon are unremarkable.? No evidence for bowel obstruction.? Normal appendix. Peritoneum:? No abnormal intraperitoneal fluid.? No free air.? ? Ventral Wall: ? No hernias.? Abdominal Nodes:? No retroperitoneal or mesenteric adenopathy by size criteria.? Vessels:? Scattered atherosclerotic calcifications of the abdominal aorta and iliac vessels without aneurysmal dilatation.? The inferior vena cava appears patent. ? PELVIS: Pelvic Organs:? Unremarkable.? ? Bladder:? Unremarkable.? ? Pelvic Nodes: No enlarged lymph nodes.? Miscellaneous: No hernias are seen. ? ? ? Bones: No acute vertebral body compression fractures. Multilevel spondylitic changes throughout the imaged spine.? No suspicious osseous lesions.? Status post right total hip arthroplasty. ? ? IMPRESSION:? CT abdomen and pelvis without acute abnormalities to explain patient's symptoms.? No evidence for acute inflammatory changes.? No evidence for bowel obstruction.? No evidence for obstructive uropathy. ? ? Dictated by: Marcos Zurita M.D. on 07/07/2021 at 18:37 ? ? Approved by: Marcos Zurita M.D. on 07/07/2021 at 18:40 ? MDM Narrative Medical decision making narrative: 61-year-old male with past medical history hypothyroidism, CAD, alcohol withdrawal, benzodiazepine withdrawal, depression presents to the ED with 3 weeks of generalized abdomen pain. Concern for diverticulitis versus appendicitis versus pancreatitis versus cholecystitis versus bowel obstruction versus urolithiasis versus UTI versus pyelonephritis. Will order labs, lactate, lipase, UA, CT abdomen pelvis. Will treat pain with ketorolac. Will reassess. Labs within normal limits. CT abdomen pelvis without acute findings. UA without UTI. Patient's pain improved with ketorolac. ED return precautions discussed with patient. Patient verbalized understanding. Patient discharged home. <Sun Fox, DO - Last Filed: 07/08/21 07:38> Lab Data Labs: Lab Results 07/07/21 07/07/21 07/07/21 Range/Units 15:45 15:45 15:45 WBC 8.3 (4.5-11.0) X10^3/uL RBC 4.24 L (4.5-5.9) X10^6/uL Hgb 11.8 L (13.5-17.5) g/dL Hct 35.5 L (41-53) % MCV 83.7 (80-100) fL MCH 27.9 (26-34) PG MCHC 33.3 (30-36) % RDW 15.4 H (11.6-14.8) % Plt Count 317 (150-400) X10^3/uL Neut % (Auto) 60.7 (50-75) % Lymph % (Auto) 31.7 (25-40) % Smyth % (Auto) 6.6 (3-14) % Eos % (Auto) 0.6 L (2-4) % Baso % (Auto) 0.4 (0-2) % Neut # (Auto) 5000 (6165-6172) /uL Lymph # (Auto) 2600 (2076-6624) /uL Smyth # (Auto) 500 (0-900) /uL Eos # (Auto) 100 (0-450) /uL Baso # (Auto) 0 (0-100) /uL Sodium 137 (137-145) mmol/L Potassium 4.1 (3.4-5.1) mmol/L Chloride 107 (98-107) mmol/L Carbon Dioxide 23 (22-32) mmol/L BUN 14 (9-20) mg/dL Creatinine 1.13 (0.66-1.25) mg/dL Estimated GFR > 60.0 (>60) mL/min BUN/Creatinine Ratio 12.4 (6-22) Glucose 83 (80-110) mg/dL Lactate 0.6 L (0.7-2.1) mmol/L Calcium 9.0 (8.4-10.2) mg/dL Total Bilirubin 0.5 (0.2-1.3) mg/dL AST 41 (17-59) IU/L ALT 18 (<50) IU/L Alkaline Phosphatase 89 (38-126) U/L Total Protein 8.0 (6.3-8.2) g/dL Albumin 4.3 (3.5-5.0) g/dL Globulin 3.7 (1.7-4.1) g/dL Albumin/Globulin Ratio 1.2 (1.0-2.8) Lipase 119 (23-300) U/L Urine Color Urine Appearance Urine pH (4.5-8.0) Ur Specific [place] (1.000-1.035) Urine Protein (Negative) Urine Glucose (UA) (Negative) g/dL Urine Ketones (NEGATIVE) Urine Occult Blood (Negative) Urine Nitrate (Negative) Urine Bilirubin (NEGATIVE) Urine Urobilinogen (0.2) E.U./dL Ur Leukocyte Esterase (NEGATIVE) Urine RBC (0-5/HPF) Urine WBC (0-5/HPF) Urine Bacteria (None) Ur Culture Indicated? 07/07/21 Range/Units 18:12 WBC (4.5-11.0) X10^3/uL RBC (4.5-5.9) X10^6/uL Hgb (13.5-17.5) g/dL Hct (41-53) % MCV (80-100) fL MCH (26-34) PG MCHC (30-36) % RDW (11.6-14.8) % Plt Count (150-400) X10^3/uL Neut % (Auto) (50-75) % Lymph % (Auto) (25-40) % Smyth % (Auto) (3-14) % Eos % (Auto) (2-4) % Baso % (Auto) (0-2) % Neut # (Auto) (3976-6033) /uL Lymph # (Auto) (7381-9587) /uL Smyth # (Auto) (0-900) /uL Eos # (Auto) (0-450) /uL Baso # (Auto) (0-100) /uL Sodium (137-145) mmol/L Potassium (3.4-5.1) mmol/L Chloride (98-107) mmol/L Carbon Dioxide (22-32) mmol/L BUN (9-20) mg/dL Creatinine (0.66-1.25) mg/dL Estimated GFR (>60) mL/min BUN/Creatinine Ratio (6-22) Glucose (80-110) mg/dL Lactate (0.7-2.1) mmol/L Calcium (8.4-10.2) mg/dL Total Bilirubin (0.2-1.3) mg/dL AST (17-59) IU/L ALT (<50) IU/L Alkaline Phosphatase (38-126) U/L Total Protein (6.3-8.2) g/dL Albumin (3.5-5.0) g/dL Globulin (1.7-4.1) g/dL Albumin/Globulin Ratio (1.0-2.8) Lipase (23-300) U/L Urine Color Yellow Urine Appearance Clear Urine pH 5.5 (4.5-8.0) Ur Specific [place] 1.020 (1.000-1.035) Urine Protein Negative (Negative) Urine Glucose (UA) Negative (Negative) g/dL Urine Ketones Negative (NEGATIVE) Urine Occult Blood 3+ H (Negative) Urine Nitrate Negative (Negative) Urine Bilirubin Negative (NEGATIVE) Urine Urobilinogen 0.2 (0.2) E.U./dL Ur Leukocyte Esterase Negative (NEGATIVE) Urine RBC 30-100/hpf H (0-5/HPF) Urine WBC 0-1/hpf (0-5/HPF) Urine Bacteria None seen (None) Ur Culture Indicated? Cult not indicated Discharge Plan Departure Patient Disposition: Home Clinical Impression: Abdominal pain Instructions: DI for Abdominal Pain-Adult Activity Restrictions/Additional Instructions: You were evaluated in the ED today for abdominal pain. Your labs and CT abdomen pelvis were normal. Your symptoms improved with Toradol. You may continue to take ibuprofen with food for your symptoms. Return to the ED if you have uncontrollable vomiting, worsening abdominal pain, fever, chills. Prescriptions: No Action fluoxetine 20 MG capsule 40 mg PO QDAY Qty: 60 2RF levothyroxine 50 MCG tablet 50 mcg PO QAM Qty: 0 0RF polyethylene glycol 3350 [Miralax] 17 gram/dose powder 17 gram PO DAILY Qty: 1 0RF dicyclomine 10 mg capsule 10 mg PO TID PRN (Reason: cramping) Qty: 10 0RF aspirin 81 mg Tablet,Delayed Release (Dr/Ec) 81 mg PO DAILY 0RF nitroglycerin [Nitrostat] 0.4 MG tablet, sublingual 0.4 mg Sublingual PRN PRN (Reason: Chest Pain) 0RF metoprolol succinate [Toprol XL] 25 MG tablet extended release 24 hr 25 mg PO DAILY 0RF Referrals: Mari Hua MD [Primary Care Provider] - <Sun Fox DO - Last Filed: 07/08/21 07:38> Cosign ED Attending Zachature Attestation: I was immediately available in the department for consultation. Documentation has been reviewed. I agree with assessment and plan.
[2021-07-07 18:30] LABS: Appearance Urine UA CLEAR; Bilirubin Urine UA NEGATIVE (NEGATIVE); Color Urine UA YELLOW; Glucose Urine UA NEGATIVE (Negative); Ketones Urine UA NEGATIVE (NEGATIVE); Leukocyte Esterase Urine UA NEGATIVE (NEGATIVE); Nitrite Urine UA NEGATIVE (Negative); Occult Blood Urine UA 3+ (Negative); Protein Urine UA NEGATIVE (Negative); Urobilinogen Urine UA 0.2 E.U./dL (0.2); pH Urine UA 5.5 (4.5-8.0)
[2021-07-07] MEDS: KETOROLAC 30 MG/ML VIAL 15 MG IV (18:32)
[2021-07-07 18:55] LABS: Bacteria Urine None Seen; Culture Indicated Urine Cult Not Indicated; RBC Urine 30-100/HPF (0-5/HPF); WBC Urine 0-1/HPF (0-5/HPF)
--- NOTE | 2021-07-07 19:12 | PC.NURSE ---
Called patient's sister Rosana to pick him up for discharge at 1910. She reports ETA of 1929
[2021-07-07 21:52] LABS: Lactate (Lactic Acid) 0.6 mmol/L (0.7-2.1)
== END 2021-07-07 19:24 | disposition home or self-care (01) ==
PROVIDERS: Emergency Medicine; Emergency Provider Student in an Organized Health Care Education/Training Program; Family Provider Family Medicine; PCP Family Medicine
DX: R10.30 Lower abdominal pain, unspecified (principal); R03.0 Elevated blood-pressure reading, without diagnosis of hypertension; Z86.16 Personal history of COVID-19
CPT/HCPCS: 36415; 74177; 80053; 81001; 83605; 83690; 85025; 93005; 93010; 96374; 99284; J1885; Q9967

== ENCOUNTER 2021-07-14 10:18 | Emergency (ER) | payer MEDICAID, OTHER, SELFPAY ==
[2021-07-14] VITALS (10 sets, daily range): BP systolic 115–137; BP diastolic 59–74; PULSE 56–73; RESP 12–27; TEMP 36.7; O2SAT 95–98; BMI 22.4
--- NOTE | 2021-07-14 10:27 | ED_ITS ---
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 He was seen evaluated here on July 07 for he had blood work and abdominal CT. He says since then he continues to have cramping in the center of his abdomen he has intermittent vomiting as well. Today it is not getting any better so he came for evaluation. He occasionally has chest pain described as a dull ache it does not seem to radiate. He has no shortness of breath. He has not had any fever or chills. Related Data Home Medications Medication Instructions Recorded Confirmed levothyroxine 50 mcg tablet 50 mcg PO QAM #0 07/18/17 01/23/19 aspirin 81 mg tablet,delayed 81 mg PO DAILY 01/23/19 01/23/19 release metoprolol succinate 25 mg 25 mg PO DAILY 01/23/19 01/23/19 tablet,extended release 24 hr (Toprol XL) nitroglycerin 0.4 mg sublingual 0.4 mg SUBLINGUAL PRN PRN 01/23/19 01/23/19 tablet (Nitrostat) Previous Rx's Medication Instructions Recorded fluoxetine 20 mg capsule 40 mg PO QDAY #60 cap 05/26/17 dicyclomine 10 mg capsule 10 mg PO TID PRN #10 cap 07/01/19 polyethylene glycol 3350 17 17 gram PO DAILY #1 package 07/01/19 gram/dose oral powder (Miralax) ondansetron 4 mg disintegrating 4 mg PO Q8H PRN #10 tab 07/14/21 tablet Allergies Allergy/AdvReac Type Severity Reaction Status Date / Time morphine [MORPHINE] Allergy Severe CONVULSIONS, Verified 01/23/19 12:23 TROUBLE BREATHING codeine [CODEINE] Allergy Mild RASH, Verified 01/23/19 12:23 HIVES, ITCHING meperidine [MEPERIDINE] Allergy Mild NAUSEA, Verified 01/23/19 12:23 ITCHING, HIVES ibuprofen [IBUPROFEN] Allergy Unknown HIVES Verified 01/23/19 12:23 naproxen [NAPROXEN] Allergy Unknown HIVES Verified 01/23/19 12:23 Review of Systems Review of Systems Narrative: GENERAL: Denies chills, fatigue, malaise, fever, sweats, travel HEENT: Denies sinus pain, ear pain, sore throat, difficulty swallowing, neck p ain RESPIRATORY: Denies dyspnea, cough, wheezing, hemoptysis, sputum. CARDIOVASCULAR: See HPI GASTROINTESTINAL: see HPI : Denies dysuria, frequency, incontinence, hematuria, urinary retention, flank pain. MUSCULOSKELETAL: Denies weakness, joint pain, or bony pain SKIN: No rash, no erythema, no pruritus NEUROLOGIC: Denies weakness, dizziness, headache, numbness, change in speech, confusion PSYCHIATRIC: No concerning psychosocial issues. 12 point review of systems is negative except for those stated above and HPI Patient History Medical History (Updated 07/14/21 @ 12:52 by Sun Fox DO) Chronic back pain Coronary arteriosclerosis in [place] artery (03/15/13) Degenerative disc disease Depression with anxiety Hypothyroidism (07/21/17) Surgical History History of bilateral total hip arthroplasty History of ear surgery Social History Smoking Status: Current every day smoker alcohol intake: former substance use type: opiates Smoking Status: Current every day smoker alcohol intake frequency: 0-2 drinks per day Substance Use Type: marijuana Exam Initial Vital Signs Initial Vital Signs: Vital Signs Temperature 98.0 F 07/14/21 10:40 Pulse Rate 63 07/14/21 10:40 Respiratory Rate 18 07/14/21 10:40 Blood Pressure 132/74 07/14/21 10:40 Pulse Oximetry 98 07/14/21 10:40 GENERAL: Alert 61-year-old male and in no acute distress. HEENT: Head atraumatic,EOMI, pupils reactive, face symmetric, moist mucous membranes CARDIOVASCULAR: Regular rate and rhythm without murmurs, rubs or gallops. RESPIRATORY: Breath sounds equal bilaterally, no wheezes rales or rhonchi. ABDOMEN: Soft, tender periumbilical area no guarding or rebound right upper quadrant is nontender negative [place] : No CVA tenderness EXTREMITIES: Normal range of motion, no clubbing or edema. Neurovascularly intact NEUROLOGICAL: Alert and oriented x4.Normal gait and speech. SKIN: Warm, dry, no laceration, no petechiae, no rashes or lesions. Course Orders Ordered: ED Orders 07/14/21 10:53 XR chest 1V Stat 07/14/21 10:58 Complete Blood Count AUTO DIFF Stat Comprehensive Metabolic Panel Stat Lipase Stat Troponin & CK Cardiac Panel Stat 07/14/21 11:16 EKG-12 Lead Stat 07/14/21 12:30 Urine Culture Stat Urine Microscopic Stat Discontinued Medications Acetaminophen (Acetaminophen 325 Mg Tablet) 975 mg PO NOW ONE Stop: 07/14/21 12:42 Last Admin: 07/14/21 12:46 Dose: 975 mg Documented by: NATALI Sodium Chloride (Normal Saline 0.9%) 1,000 mls @ 1,000 mls/hr IV CONT GREY Last Infusion: 07/14/21 13:36 Dose: 0 mls/hr Documented by: Admin: 07/14/21 11:16 Dose: 1,000 mls/hr Documented by: NATALI Ketorolac Tromethamine (Ketorolac 30 Mg/Ml Vial) 15 mg IV NOW ONE Stop: 07/14/21 10:57 Last Admin: 07/14/21 11:15 Dose: 15 mg Documented by: NATALI Ketorolac Tromethamine (Ketorolac 30 Mg/Ml Vial) 15 mg IV NOW ONE Stop: 07/14/21 12:33 Last Admin: 07/14/21 12:43 Dose: Not Given Documented by: NATALI Ondansetron HCl (Ondansetron 4 Mg/2 Ml Inj) 4 mg IV NOW ONE Stop: 07/14/21 10:54 Last Admin: 07/14/21 11:16 Dose: 4 mg Documented by: NATALI Pantoprazole Sodium (Pantoprazole 40 Mg Vial) 40 mg IV NOW ONE Stop: 07/14/21 10:54 Last Admin: 07/14/21 11:16 Dose: 40 mg Documented by: NATALI Vital Signs Vital signs: Vital Signs - 8 hr 07/14/21 10:40 07/14/21 10:45 07/14/21 11:00 Temperature 98.0 F Pulse Rate 63 63 61 Respiratory Rate 18 Blood Pressure 132/74 Pulse Oximetry 98 97 98 07/14/21 11:30 07/14/21 11:49 07/14/21 12:00 Temperature Pulse Rate 62 63 56 L Respiratory Rate 23 12 Blood Pressure 137/70 115/59 L Pulse Oximetry 98 98 98 07/14/21 12:30 07/14/21 12:31 07/14/21 12:34 Temperature Pulse Rate 62 73 64 Respiratory Rate 21 27 H 23 Blood Pressure 125/65 Pulse Oximetry 95 96 96 07/14/21 13:00 Temperature Pulse Rate 57 L Respiratory Rate 19 Blood Pressure Pulse Oximetry 96 MDM - Abdominal Pain Lab Data Result diagrams: 07/14/21 10:58 07/14/21 10:58 Labs: Lab Results 07/14/21 07/14/21 07/14/21 Range/Units 10:58 10:58 12:30 WBC 8.4 (4.5-11.0) X10^3/uL RBC 4.24 L (4.5-5.9) X10^6/uL Hgb 12.0 L (13.5-17.5) g/dL Hct 35.3 L (41-53) % MCV 83.3 (80-100) fL MCH 28.2 (26-34) PG MCHC 33.9 (30-36) % RDW 15.2 H (11.6-14.8) % Plt Count 313 (150-400) X10^3/uL Neut % (Auto) 72.8 (50-75) % Lymph % (Auto) 20.0 L (25-40) % [place] % (Auto) 5.4 (3-14) % Eos % (Auto) 1.5 L (2-4) % Baso % (Auto) 0.3 (0-2) % Neut # (Auto) 6100 (6919-6653) /uL Lymph # (Auto) 1700 (9796-2905) /uL [place] # (Auto) 500 (0-900) /uL Eos # (Auto) 100 (0-450) /uL Baso # (Auto) 0 (0-100) /uL Sodium 134 L (137-145) mmol/L Potassium 4.5 (3.4-5.1) mmol/L Chloride 104 (98-107) mmol/L Carbon Dioxide 23 (22-32) mmol/L BUN 15 (9-20) mg/dL Creatinine 0.87 (0.66-1.25) mg/dL Estimated GFR > 60.0 (>60) mL/min BUN/Creatinine Ratio 17.2 (6-22) Glucose 110 (80-110) mg/dL Calcium 9.0 (8.4-10.2) mg/dL Total Bilirubin 0.3 (0.2-1.3) mg/dL AST 25 (17-59) IU/L ALT 17 (<50) IU/L Alkaline Phosphatase 77 (38-126) U/L Total Creatine Kinase 128 (55-170) U/L CK-MB (CK-2) 1.79 (<2.37) ng/mL CK-MB (CK-2) Rel Index 1.4 L (1.5-5.0) % Troponin I < 0.012 (0.01-0.034) ng/mL Total Protein 7.4 (6.3-8.2) g/dL Albumin 4.0 (3.5-5.0) g/dL Globulin 3.4 (1.7-4.1) g/dL Albumin/Globulin Ratio 1.2 (1.0-2.8) Lipase 138 (23-300) U/L Urine RBC 5-10/hpf H (0-5/HPF) Urine WBC 5-10/hpf H (0-5/HPF) Urine Bacteria Occasional (0-1) (None) Ur Culture Indicated? Specimen cultured Point of care testing: Urine Dip Bedside Urine Glucose Negative Bedside Urine Bilirubin - Negative Bedside Urine Ketone - Negative Urine Specific [place] 1.015 Bedside Urine Occult Blood +++ Bedside Urine pH 6.0 Bedside Urine Protein - Negative Bedside Urine Urobilinogen - Negative Bedside Urine Nitrite - Negative Bedside Urine Leukocytes - Negative Esterase MDM Narrative Medical decision making narrative: Patient's pain has improved with with Toradol, he tolerated last time without any sort of reaction. Blood work overall appears within normal limits. He had a CT last week at this time I do not see any need for repeat imaging. Discharge Plan Departure Patient Disposition: Home Clinical Impression: Abdominal pain Instructions: DI for Abdominal Pain-Adult Activity Restrictions/Additional Instructions: *You have been diagnosed with abdominal pain with vomiting *What to do: Increase fluid intake as tolerated recommend Gatorade or Gatorade like product. *Continue to take medications as directed Zofran 4 mg every 8 hours if needed for nausea or vomiting--> SENT TO [facility] *Follow up with your primary care provider in 2-3 days or call [phone] *Return to ER if you should have persistent vomiting, unable to tolerate fluids, increasing pain, fever or any new, worsening or concerning symptoms Prescriptions: New ondansetron 4 mg tablet,disintegrating 4 mg PO Q8H PRN (Reason: nausea and vomiting) Qty: 10 0RF No Action fluoxetine 20 MG capsule 40 mg PO QDAY Qty: 60 2RF levothyroxine 50 MCG tablet 50 mcg PO QAM Qty: 0 0RF polyethylene glycol 3350 [Miralax] 17 gram/dose powder 17 gram PO DAILY Qty: 1 0RF dicyclomine 10 mg capsule 10 mg PO TID PRN (Reason: cramping) Qty: 10 0RF aspirin 81 mg Tablet,Delayed Release (Dr/Ec) 81 mg PO DAILY 0RF nitroglycerin [Nitrostat] 0.4 MG tablet, sublingual 0.4 mg Sublingual PRN PRN (Reason: Chest Pain) 0RF metoprolol succinate [Toprol XL] 25 MG tablet extended release 24 hr 25 mg PO DAILY 0RF Referrals: Mari Hua MD [Primary Care Provider] -
--- NOTE | 2021-07-14 10:53 | DI.RAD.S_ITS ---
PROCEDURE: XR CHEST 1V INDICATIONS: chest pain TECHNIQUE: One view of the chest was acquired. COMPARISON: [facility], CR, XR CHEST 1V, 11/04/2019, 19:35. FINDINGS: Surgical changes and devices: None. Lungs and pleura: Lungs are clear. No pleural effusions or pneumothorax. Mediastinum: Mediastinal contours appear normal. Heart size is normal. Bones and chest wall: No suspicious bony lesions. Overlying soft tissues appear unremarkable. IMPRESSION: No acute pulmonary process. Dictated by: Rosa Portillo M.D. on 07/14/2021 at 11:58 Approved by: Rosa Portillo M.D. on 07/14/2021 at 11:58
[2021-07-14] MEDS: KETOROLAC 30 MG/ML VIAL 15 MG IV (11:15)
[2021-07-14 11:16] LABS: Add Manual Diff / Slide Review NO; Basophils Absolute Auto 0 /uL (0-100); Basophils Percent Auto 0.3 % (0-2); Eosinophils Absolute Auto 100 /uL (0-450); Eosinophils Percent Auto 1.5 % (2-4); Hematocrit 35.3 % (41-53); Lymphocytes Absolute Auto 1700 /uL (1100-4500); Mean Corpuscular HGB Conc 33.9 % (30-36); Mean Corpuscular Hemoglobin 28.2 PG (26-34); Mean Corpuscular Volume 83.3 fL (80-100); Monocytes Absolute Auto 500 /uL (0-900); Monocytes Percent Auto 5.4 % (3-14); Neutrophils Absolute Auto 6100 /uL (1500-7000); Neutrophils Percent Auto 72.8 % (50-75); Platelet Count 313 X10^3/uL (150-400); Red Blood Cell Count 4.24 X10^6/uL (4.5-5.9); Red Cell Distribution Width 15.2 % (11.6-14.8); White Blood Cell Count 8.4 X10^3/uL (4.5-11.0)
[2021-07-14] MEDS: PANTOPRAZOLE 40 MG VIAL IV (11:16)
[2021-07-14] MEDS: SODIUM CHLORIDE 0.9% 1,000 ML 1000 ML IV (11:16)
[2021-07-14] MEDS: ONDANSETRON 4 MG/2 ML INJ IV (11:16)
[2021-07-14 11:32] LABS: Alanine Aminotransferase 17 IU/L (<50); Albumin Globulin Ratio 1.2 (1.0-2.8); Alkaline Phosphatase 77 U/L (38-126); Aspartate Aminotransferase 25 IU/L (17-59); BUN Creatinine Ratio 17.2 (6-22); Bilirubin Total 0.3 mg/dL (0.2-1.3); Blood Urea Nitrogen 15 mg/dL (9-20); Carbon Dioxide 23 mmol/L (22-32); Chloride 104 mmol/L (98-107); Creatine Kinase 128 U/L (55-170); Estimated Glomerular Filt Rate > 60.0 mL/min (>60); Globulin 3.4 g/dL (1.7-4.1); Glucose 110 mg/dL (80-110); HEMOLYSIS < 15 (0-50); Lipase 138 U/L (23-300); Potassium 4.5 mmol/L (3.4-5.1); Sodium 134 mmol/L (137-145); Total Protein 7.4 g/dL (6.3-8.2)
[2021-07-14 11:44] LABS: Troponin I < 0.012 ng/mL (0.01-0.034)
[2021-07-14 11:47] LABS: CKMB % Relative Index 1.4 % (1.5-5.0); Creatine Kinase MB 1.79 ng/mL (<2.37)
[2021-07-14] MEDS: ACETAMINOPHEN 325 MG TABLET 975 MG PO (12:46)
[2021-07-14 12:58] LABS: Bacteria Urine Occasional (0-1); Culture Indicated Urine Specimen Cultured; RBC Urine 5-10/HPF (0-5/HPF); WBC Urine 5-10/HPF (0-5/HPF)
== END 2021-07-14 13:38 | disposition home or self-care (01) ==
PROVIDERS: Emergency Provider Emergency Medicine; Family Provider Family Medicine; PCP Family Medicine
DX: R10.33 Periumbilical pain (principal); F17.200 Nicotine dependence, unspecified, uncomplicated; Z88.5 Allergy status to narcotic agent
CPT/HCPCS: 36415; 71045; 80053; 81003; 81015; 82550; 82553; 83690; 84484; 85025; 87086; 93005; 93010; 96361; 96374; 96375; 99284; C9113; J1885; J2405

== ENCOUNTER 2021-10-26 20:52 | Emergency (ER) | payer MEDICAID, OTHER, SELFPAY ==
[2021-10-26] MEDS: methylPREDNISolone 125 MG/2 ML VIAL IV (20:58)
[2021-10-26] MEDS: FAMOTIDINE 20 MG/2 ML VIAL IV (20:59)
[2021-10-26 21:00] VITALS: BP 138/75; PULSE 80; RESP 20; TEMP 37.4; O2SAT 96
--- NOTE | 2021-10-26 21:12 | ED.ALLEREA ---
HPI - Allergic Reaction General Chief complaint: Allergic Reaction Stated complaint: Allergic reaction Time Seen by Provider: 10/26/21 20:54 Source: patient and EMS Mode of arrival: EMS History of Present Illness HPI narrative: 61-year-old male daily smoker with history of coronary artery disease, degenerative disc disease, substance abuse including alcohol and benzodiazepines presents by EMS for evaluation of an allergic reaction. He had been in his normal state of health an 8 some chocolate candy and soon thereafter developed the sensation that his throat was closing and some swelling of his lips. He called 911 and 1st responders gave 2 doses of intramuscular epinephrine and mother time and a [facility] fire had arrived he was essentially asymptomatic. He was given a dose of diphenhydramine and some Zofran and route and presents without any difficulty in breathing or swallowing denies any rash. He has had no GI symptoms such as nausea, vomiting or diarrhea. He states that he had a much milder reaction to some chocolate last week, stating today it was much more significant. Related Data Home Medications Medication Instructions Recorded Confirmed levothyroxine 50 mcg tablet 50 mcg PO QAM ##0 07/18/17 01/23/19 aspirin 81 mg tablet,delayed 81 mg PO DAILY 01/23/19 01/23/19 release metoprolol succinate 25 mg 25 mg PO DAILY 01/23/19 01/23/19 tablet,extended release 24 hr (Toprol XL) nitroglycerin 0.4 mg sublingual 0.4 mg sublingual PRN PRN Chest 01/23/19 01/23/19 tablet (Nitrostat) Pain Previous Rx's Medication Instructions Recorded fluoxetine 20 mg capsule 40 mg PO QDAY #60 caps 05/26/17 dicyclomine 10 mg capsule 10 mg PO TID PRN cramping #10 caps 07/01/19 polyethylene glycol 3350 17 17 gram PO DAILY #1 pkg 07/01/19 gram/dose oral powder (Miralax) ondansetron 4 mg disintegrating 4 mg PO Q8H PRN nausea and 07/14/21 tablet vomiting #10 tabs prednisone 20 mg tablet 20 mg PO DAILY #5 tabs 10/26/21 Allergies Allergy/AdvReac Type Severity Reaction Status Date / Time morphine [MORPHINE] Allergy Severe CONVULSIONS, Verified 01/23/19 12:23 TROUBLE BREATHING codeine [CODEINE] Allergy Mild RASH, Verified 01/23/19 12:23 HIVES, ITCHING meperidine [MEPERIDINE] Allergy Mild NAUSEA, Verified 01/23/19 12:23 ITCHING, HIVES ibuprofen [IBUPROFEN] Allergy Unknown HIVES Verified 01/23/19 12:23 naproxen [NAPROXEN] Allergy Unknown HIVES Verified 01/23/19 12:23 Review of Systems Review of Systems Narrative: GENERAL: Denies chills, fatigue, malaise, fever, sweats. HEENT: See HPI RESPIRATORY: Denies dyspnea, cough, wheezing, hemoptysis, sputum. CARDIOVASCULAR: Denies chest pain, palpitations, orthopnea, edema, GASTROINTESTINAL: Denies nausea, vomiting, abdominal pain, diarrhea, constipation, melena. : Denies dysuria, frequency, incontinence, hematuria, urinary retention. MUSCULOSKELETAL: denies weakness, joint pain, or bony pain SKIN: Denies rash, skin lesions, or other NEUROLOGIC: Denies weakness, headache, numbness, change in speech, confusion, seizures, incoordination. PSYCHIATRIC: No concerning psychosocial issues. 12 point review of systems is negative except for those stated above Patient History Medical History (Updated 10/26/21 @ 22:47 by Dionicio Bhatia DO) Chronic back pain Coronary arteriosclerosis in [place] artery (03/15/13) Degenerative disc disease Depression with anxiety Hypothyroidism (07/21/17) Surgical History History of bilateral total hip arthroplasty History of ear surgery Social History Smoking Status: Current every day smoker alcohol intake: former substance use type: opiates Smoking Status: Current every day smoker alcohol intake frequency: 0-2 drinks per day Substance Use Type: marijuana Exam Narrative Exam Narrative: GENERAL: [61] year old patient appears stated age. Well-developed patient, in mild distress. HEAD: Atraumatic. Normocephalic. EYES: Pupils equal round and reactive. Extraocular motions intact. No scleral icterus. No injection or drainage. ENT: Nose without bleeding, purulent drainage. Throat without erythema, tonsillar hypertrophy or exudate. Airway patent. NECK: Trachea midline. Non tender CARDIOVASCULAR: Regular rate and rhythm without murmurs, gallops, or rubs. RESPIRATORY: Clear to auscultation. Breath sounds equal bilaterally. No wheezes, rales, or rhonchi. GASTROINTESTINAL: Abdomen soft, non-tender, nondistended. EXTREMITIES: No edema or joint tenderness. BACK: Nontender without deformity or crepitance. No flank tenderness. NEURO: AOx3. SKIN: No rash or erythema of visible areas Initial Vital Signs Initial Vital Signs: Vital Signs Temperature 99.4 F 10/26/21 21:00 Pulse Rate 80 10/26/21 21:00 Respiratory Rate 20 10/26/21 21:00 Blood Pressure 138/75 10/26/21 21:00 Pulse Oximetry 96 10/26/21 21:00 Oxygen Delivery Method 10/26/21 21:00 Course Orders Ordered: Famotidine (Famotidine 20 Mg/2 Ml Vial) 20 mg IV NOW GREY Last Admin: 10/26/21 20:59 Dose: 20 mg Documented By: HEIDI Discontinued Medications Methylprednisolone (Methylprednisolone 125 Mg/2 Ml Vial) 125 mg IV NOW ONE Stop: 10/26/21 20:56 Last Admin: 10/26/21 20:58 Dose: 125 mg Documented By: HEIDI Vital Signs Vital signs: Vital Signs - 8 hr 10/26/21 21:00 10/26/21 22:48 Temperature 99.4 F Pulse Rate 80 64 Respiratory Rate 20 18 Blood Pressure 138/75 111/73 Pulse Oximetry 96 96 Oxygen Delivery Method Room Air Room Air MDM - Allergic Reaction MDM Narrative Medical decision making narrative: 61-year-old male with allergic reaction after exposure to chocolate treated with epinephrine in the field and subsequently given steroids and antihistamines. He is observed for 2 hours and has no symptoms for the duration of his visit. He has had return precautions given and questions answered to his apparent satisfaction Discharge Plan Departure Patient Disposition: Home Clinical Impression: Allergic reaction Instructions: Anaphylaxis Activity Restrictions/Additional Instructions: *You have been diagnosed with [allergic reaction] *What to do: *Please continue to take your regular medications as directed. [x ] New medication prescriptions sent to your pharmacy: [ [facility]] [ ] New medication written as a paper prescription [ ] No new medications given *Please consider the routine use of over the counter antihistamines over the next few days 1. H1 blockers: Benadryl (Diphenhydramine), Zyrtec (Cetirizine), Sofy (Fexofenadine) or Claritin (Loratadine) along with, 2. H2 blockers: Famotidine or Cimetidine *If you can please avoid what triggered your reaction today *Please follow up with your primary care provider in 2-3 days, call for an appointment. Let them know you were seen in the Emergency Department and that we ask that you be seen in follow up. We will electronically transmit a record of today's note if your PCP is in our system *If you do not have a primary care provider please contact the [facility] Resource line at [phone]. They will ask some questions about your medical history and help get you set up with a doctor in the community. *Return to Emergency Department if you should have any new, worsening or concerning symptoms, such as swelling of tongue, throat, trouble breathing, or other concerning symptoms Prescriptions: New prednisone 20 mg tablet 20 mg PO DAILY Qty: 5 0RF Rx Instructions: administer with food or milk No Action fluoxetine 20 MG capsule 40 mg PO QDAY Qty: 60 2RF levothyroxine 50 MCG tablet 50 mcg PO QAM Qty: 0 polyethylene glycol 3350 [Miralax] 17 gram/dose powder 17 gram PO DAILY Qty: 1 0RF dicyclomine 10 mg capsule 10 mg PO TID PRN (Reason: cramping) Qty: 10 0RF ondansetron 4 mg tablet,disintegrating 4 mg PO Q8H PRN (Reason: nausea and vomiting) Qty: 10 0RF aspirin 81 mg Tablet,Delayed Release (Dr/Ec) 81 mg PO DAILY nitroglycerin [Nitrostat] 0.4 MG tablet, sublingual 0.4 mg Sublingual PRN PRN (Reason: Chest Pain) metoprolol succinate [Toprol XL] 25 MG tablet extended release 24 hr 25 mg PO DAILY Referrals: Mari Hua MD [Primary Care Provider] -
[2021-10-26 22:48] VITALS: BP 111/73; PULSE 64; RESP 18; O2SAT 96
== END 2021-10-26 23:15 | disposition home or self-care (01) ==
PROVIDERS: Emergency Provider Emergency Medicine; Family Provider Family Medicine; PCP Family Medicine
DX: T78.09XA Anaphylactic reaction due to other food products, initial encounter (principal)
CPT/HCPCS: 96374; 96375; 99283; 99284; J2930

== ENCOUNTER 2022-01-28 09:57 | Emergency (ER) | payer MEDICAID, OTHER, SELFPAY ==
[2022-01-28] VITALS (10 sets, daily range): BP systolic 111–153; BP diastolic 66–88; PULSE 50–74; RESP 14–22; TEMP 36.7; O2SAT 94–98; BMI 23.3
--- NOTE | 2022-01-28 10:10 | DI.RAD.S_ITS ---
PROCEDURE: XR CHEST 1V INDICATIONS: chest pain TECHNIQUE: One view of the chest was acquired. COMPARISON: [facility], CR, XR CHEST 1V, 07/14/2021, 10:59. FINDINGS: Surgical changes and devices: None. Lungs and pleura: Lungs are clear. No pleural effusions or pneumothorax. Mediastinum: Mediastinal contours appear normal. Heart size is normal. Bones and chest wall: No suspicious bony lesions. Overlying soft tissues appear unremarkable. IMPRESSION: No acute cardiopulmonary pathology. Dictated by: Fernando Arreola M.D. on 01/28/2022 at 10:45 Approved by: Fernando Arreola M.D. on 01/28/2022 at 10:46
[2022-01-28 10:24] LABS: Add Manual Diff / Slide Review NO; Basophils Absolute Auto 0 /uL (0-100); Basophils Percent Auto 0.4 % (0-2); Eosinophils Absolute Auto 200 /uL (0-450); Hemoglobin 12.2 g/dL (13.5-17.5); Lymphocytes Absolute Auto 2800 /uL (1100-4500); Lymphocytes Percent Auto 39.7 % (25-40); Mean Corpuscular Hemoglobin 28.2 PG (26-34); Mean Corpuscular Volume 83.1 fL (80-100); Monocytes Absolute Auto 400 /uL (0-900); Monocytes Percent Auto 5.5 % (3-14); Neutrophils Absolute Auto 3600 /uL (1500-7000); Neutrophils Percent Auto 51.4 % (50-75); Platelet Count 319 X10^3/uL (150-400); Red Blood Cell Count 4.33 X10^6/uL (4.5-5.9); Red Cell Distribution Width 16.6 % (11.6-14.8)
[2022-01-28 10:34] LABS: Alanine Aminotransferase 21 IU/L (<50); Albumin Globulin Ratio 1.1 (1.0-2.8); Alkaline Phosphatase 81 U/L (38-126); Aspartate Aminotransferase 34 IU/L (17-59); BUN Creatinine Ratio 17.3 (6-22); Bilirubin Total 0.4 mg/dL (0.2-1.3); Blood Urea Nitrogen 14 mg/dL (9-20); Calcium 8.8 mg/dL (8.4-10.2); Carbon Dioxide 22 mmol/L (22-32); Chloride 105 mmol/L (98-107); Creatine Kinase 118 U/L (55-170); Estimated Glomerular Filt Rate > 60 mL/min (>60); Globulin 3.6 g/dL (1.7-4.1); Glucose 117 mg/dL (80-110); HEMOLYSIS < 15 (0-50); Lipase 123 U/L (23-300); Magnesium 1.9 mg/dL (1.6-2.3); Sodium 139 mmol/L (137-145); Total Protein 7.6 g/dL (6.3-8.2)
[2022-01-28 10:35] LABS: COVID19 -Nasal RAPID Negative (Negative)
[2022-01-28 10:47] LABS: Troponin I < 0.012 ng/mL (0.01-0.034)
[2022-01-28 10:49] LABS: CKMB % Relative Index 1.3 % (1.5-5.0); Creatine Kinase MB 1.53 ng/mL (<2.37)
--- NOTE | 2022-01-28 11:26 | ED_ITS ---
HPI - Chest Pain General Chief Complaint: Chest Pain Stated Complaint: Chest pain Time Seen by Provider: 01/28/22 10:53 Source: patient and EMS Mode of arrival: EMS Limitations: no limitations History of Present Illness HPI narrative: Patient is a 61-year-old male. History of anxiety, hypothyroid, coronary artery disease. He states that last evening he had a sharp discomfort in the left side of his chest that caused him to pass out and falling forward. He states that he felt like he landed on his left arm in his having discomfort in his left arm. He is also been having consistent left-sided sharp chest pain since last night. This morning he states that he also passed out once again. Prior to passing out he denies any prodromal symptoms to include palpitations or shortness of breath. He did receive aspirin and nitro by EMS. Initially there was reports that this improved his symptoms but then patient states that he did not think it helped all that much. He describes a sharp left-sided chest pain that is reproducible with touching the area. Denies any shortness of breath. No swelling in his legs. No diaphoresis. No abdominal pain. No nausea or vomiting. Related Data Home Medications Medication Instructions Recorded Confirmed levothyroxine 50 mcg tablet 50 mcg PO QAM ##0 07/18/17 01/23/19 aspirin 81 mg tablet,delayed 81 mg PO DAILY 01/23/19 01/23/19 release metoprolol succinate 25 mg 25 mg PO DAILY 01/23/19 01/23/19 tablet,extended release 24 hr (Toprol XL) nitroglycerin 0.4 mg sublingual 0.4 mg sublingual PRN PRN Chest 01/23/19 01/23/19 tablet (Nitrostat) Pain Previous Rx's Medication Instructions Recorded fluoxetine 20 mg capsule 40 mg PO QDAY #60 caps 05/26/17 dicyclomine 10 mg capsule 10 mg PO TID PRN cramping #10 caps 07/01/19 polyethylene glycol 3350 17 17 gram PO DAILY #1 pkg 07/01/19 gram/dose oral powder (Miralax) ondansetron 4 mg disintegrating 4 mg PO Q8H PRN nausea and 07/14/21 tablet vomiting #10 tabs prednisone 20 mg tablet 20 mg PO DAILY #5 tabs 10/26/21 Allergies Allergy/AdvReac Type Severity Reaction Status Date / Time morphine [MORPHINE] Allergy Severe CONVULSIONS, Verified 01/23/19 12:23 TROUBLE BREATHING codeine [CODEINE] Allergy Mild RASH, Verified 01/23/19 12:23 HIVES, ITCHING meperidine [MEPERIDINE] Allergy Mild NAUSEA, Verified 01/23/19 12:23 ITCHING, HIVES ibuprofen [IBUPROFEN] Allergy Unknown HIVES Verified 01/23/19 12:23 naproxen [NAPROXEN] Allergy Unknown HIVES Verified 01/23/19 12:23 Review of Systems Review of Systems ROS Unobtainable: All systems reviewed & are unremarkable except as noted in HPI and below Patient History Medical History (Updated 01/28/22 @ 13:25 by Ruddy Benavidez DO) Chronic back pain Coronary arteriosclerosis in [place] artery (03/15/13) Degenerative disc disease Depression with anxiety Hypothyroidism (07/21/17) Surgical History History of bilateral total hip arthroplasty History of ear surgery Social History Smoking Status: Current every day smoker alcohol intake: former substance use type: opiates Smoking Status: Current every day smoker alcohol intake frequency: 0-2 drinks per day Substance Use Type: marijuana Exam Initial Vital Signs Initial Vital Signs: Vital Signs Pulse Rate 74 01/28/22 10:03 Respiratory Rate 14 01/28/22 10:03 Const General: cooperative and comfortable HENMT Head: normal to inspection and normocephalic Chest Other: Reproducible sharp left-sided chest discomfort that he states was what he had last night Resp Effort & Inspection: normal respiratory effort Auscultation: clear to auscultation bilaterally Cardio Rate: regular rate Rhythm: regular rhythm GI Inspection: normal to inspection Palpation: soft and No tender Skin General: no rashes or lesions noted Lesions: no lesions Neuro General: patient alert, patient awake, patient oriented x3 and moves all extremities Speech: speech normal Gait: normal gait Extrem General: No edema Psych Other: Anxious Course Orders Ordered: ED Orders 01/28/22 10:10 XR chest 1V Stat COVID19 -Nasal RAPID/Pre-Proc Stat Complete Blood Count AUTO DIFF Stat Comprehensive Metabolic Panel Stat Lipase Stat Magnesium Stat Troponin & CK Cardiac Panel Stat EKG-12 Lead Stat 01/28/22 10:24 EKG-12 Lead Routine 01/28/22 12:06 EKG-12 Lead Stat 01/28/22 12:15 Troponin I Stat Vital Signs Vital signs: Vital Signs - 8 hr 01/28/22 10:05 01/28/22 10:03 01/28/22 10:04 Temperature 98.0 F Pulse Rate 71 74 Respiratory Rate 20 14 Blood Pressure 139/81 139/81 Pulse Oximetry 94 Oxygen Delivery Method Room Air 01/28/22 10:04 01/28/22 10:30 01/28/22 10:31 Temperature Pulse Rate 71 66 69 Respiratory Rate 20 22 22 Blood Pressure Pulse Oximetry 96 95 95 Oxygen Delivery Method 01/28/22 10:31 01/28/22 11:00 01/28/22 11:00 Temperature Pulse Rate 60 Respiratory Rate 22 Blood Pressure 121/66 111/74 Pulse Oximetry 96 Oxygen Delivery Method 01/28/22 11:30 01/28/22 11:30 01/28/22 12:00 Temperature Pulse Rate 62 Respiratory Rate 22 Blood Pressure 131/86 131/73 Pulse Oximetry 97 Oxygen Delivery Method 01/28/22 12:00 01/28/22 12:30 01/28/22 12:30 Temperature Pulse Rate 55 L 50 L Respiratory Rate 20 18 Blood Pressure 139/82 Pulse Oximetry 97 98 Oxygen Delivery Method 01/28/22 13:00 01/28/22 13:00 Temperature Pulse Rate 51 L Respiratory Rate 21 Blood Pressure 153/88 H Pulse Oximetry 98 Oxygen Delivery Method MDM - Chest Pain Lab Data Attestation: I reviewed the patient's lab results. Result diagrams: 01/28/22 10:10 01/28/22 10:10 Labs: Lab Results 01/28/22 01/28/22 01/28/22 Range/Units 10:10 10:10 10:10 WBC 7.0 (4.5-11.0) X10^3/uL RBC 4.33 L (4.5-5.9) X10^6/uL Hgb 12.2 L (13.5-17.5) g/dL Hct 36.0 L (41-53) % MCV 83.1 (80-100) fL MCH 28.2 (26-34) PG MCHC 34.0 (30-36) % RDW 16.6 H (11.6-14.8) % Plt Count 319 (150-400) X10^3/uL Neut % (Auto) 51.4 (50-75) % Lymph % (Auto) 39.7 (25-40) % [place] % (Auto) 5.5 (3-14) % Eos % (Auto) 3.0 (2-4) % Baso % (Auto) 0.4 (0-2) % Neut # (Auto) 3600 (7760-0083) /uL Lymph # (Auto) 2800 (3495-7152) /uL [place] # (Auto) 400 (0-900) /uL Eos # (Auto) 200 (0-450) /uL Baso # (Auto) 0 (0-100) /uL Sodium 139 (137-145) mmol/L Potassium 4.0 (3.4-5.1) mmol/L Chloride 105 (98-107) mmol/L Carbon Dioxide 22 (22-32) mmol/L BUN 14 (9-20) mg/dL Creatinine 0.81 (0.66-1.25) mg/dL Estimated GFR > 60 (>60) mL/min BUN/Creatinine Ratio 17.3 (6-22) Glucose 117 H (80-110) mg/dL Calcium 8.8 (8.4-10.2) mg/dL Magnesium 1.9 (1.6-2.3) mg/dL Total Bilirubin 0.4 (0.2-1.3) mg/dL AST 34 (17-59) IU/L ALT 21 (<50) IU/L Alkaline Phosphatase 81 (38-126) U/L Total Creatine Kinase 118 (55-170) U/L CK-MB (CK-2) 1.53 (<2.37) ng/mL CK-MB (CK-2) Rel Index 1.3 L (1.5-5.0) % Troponin I < 0.012 (0.01-0.034) ng/mL Total Protein 7.6 (6.3-8.2) g/dL Albumin 4.0 (3.5-5.0) g/dL Globulin 3.6 (1.7-4.1) g/dL Albumin/Globulin Ratio 1.1 (1.0-2.8) Lipase 123 (23-300) U/L SARS-CoV-2 (PCR) Negative (Negative) 01/28/22 Range/Units 12:15 WBC (4.5-11.0) X10^3/uL RBC (4.5-5.9) X10^6/uL Hgb (13.5-17.5) g/dL Hct (41-53) % MCV (80-100) fL MCH (26-34) PG MCHC (30-36) % RDW (11.6-14.8) % Plt Count (150-400) X10^3/uL Neut % (Auto) (50-75) % Lymph % (Auto) (25-40) % [place] % (Auto) (3-14) % Eos % (Auto) (2-4) % Baso % (Auto) (0-2) % Neut # (Auto) (4127-8617) /uL Lymph # (Auto) (5974-1334) /uL [place] # (Auto) (0-900) /uL Eos # (Auto) (0-450) /uL Baso # (Auto) (0-100) /uL Sodium (137-145) mmol/L Potassium (3.4-5.1) mmol/L Chloride (98-107) mmol/L Carbon Dioxide (22-32) mmol/L BUN (9-20) mg/dL Creatinine (0.66-1.25) mg/dL Estimated GFR (>60) mL/min BUN/Creatinine Ratio (6-22) Glucose (80-110) mg/dL Calcium (8.4-10.2) mg/dL Magnesium (1.6-2.3) mg/dL Total Bilirubin (0.2-1.3) mg/dL AST (17-59) IU/L ALT (<50) IU/L Alkaline Phosphatase (38-126) U/L Total Creatine Kinase (55-170) U/L CK-MB (CK-2) (<2.37) ng/mL CK-MB (CK-2) Rel Index (1.5-5.0) % Troponin I < 0.012 (0.01-0.034) ng/mL Total Protein (6.3-8.2) g/dL Albumin (3.5-5.0) g/dL Globulin (1.7-4.1) g/dL Albumin/Globulin Ratio (1.0-2.8) Lipase (23-300) U/L SARS-CoV-2 (PCR) (Negative) Imaging Data Chest x-ray: Radiologist's Impression: [address] [address] XRay Report Signed Patient: Red Lindquist MR#: [id number] : 1960 Acct:[id number] Age/Sex: 61 / M Date of Service: 01/28/22 Loc: ED Accession Number: [id number] ?? Procedure: XR chest 1V Ordering Provider: Ruddy Benavidez D.O. PROCEDURE:? XR CHEST 1V ? INDICATIONS:? chest pain ? TECHNIQUE:? One view of the chest was acquired.? ? COMPARISON:? [facility], CR, XR CHEST 1V, 07/14/2021, 10:59. ? FINDINGS:? ? Surgical changes and devices:? None.? ? Lungs and pleura:? Lungs are clear.? No pleural effusions or pneumothorax.? ? Mediastinum:? Mediastinal contours appear normal.? Heart size is normal.? ? Bones and chest wall:? No suspicious bony lesions.? Overlying soft tissues appear unremarkable.? ? IMPRESSION:? No acute cardiopulmonary pathology. ? ? Dictated by: Fernando Arreola M.D. on 01/28/2022 at 10:45 ? ? Approved by: Fernando Arreola M.D. on 01/28/2022 at 10:46 ECG Data Attestation: I personally reviewed and interpreted this ECG as follows: Interpretation: Sinus rhythm Ventricular rate is 64 Normal axis Normal QRS Normal QTC No ST T wave changes Sinus bradycardia Ventricular rate of 49 Normal axis Normal QRS Normal QTC Unchanged from presentation EKG MDM Narrative Medical decision making narrative: EKG nonischemic, troponins are negative x2. Patient has reproducible left-sided chest discomfort. He thinks that he hurt his left arm when he fell forward. He does have a history of ACS however given his constant symptoms since last evening and his negative troponins in the fact that it can be reproduced I have low suspicion that his chest pain today is cardiac in nature. Will discharge patient home. He obviously is very anxious. He was given strict return precautions. He expressed understanding and agreement. Discharge Plan Departure Patient Disposition: Home Clinical Impression: Atypical chest pain Instructions: DI for Atypical Chest Pain Activity Restrictions/Additional Instructions: Continue to take all of your medications as directed and I recommend that you contact your primary doctor for a follow-up. Return to the emergency department for any new or worsening symptoms. Prescriptions: No Action fluoxetine 20 MG capsule 40 mg PO QDAY Qty: 60 2RF levothyroxine 50 MCG tablet 50 mcg PO QAM Qty: 0 polyethylene glycol 3350 [Miralax] 17 gram/dose powder 17 gram PO DAILY Qty: 1 0RF dicyclomine 10 mg capsule 10 mg PO TID PRN (Reason: cramping) Qty: 10 0RF ondansetron 4 mg tablet,disintegrating 4 mg PO Q8H PRN (Reason: nausea and vomiting) Qty: 10 0RF aspirin 81 mg Tablet,Delayed Release (Dr/Ec) 81 mg PO DAILY nitroglycerin [Nitrostat] 0.4 MG tablet, sublingual 0.4 mg Sublingual PRN PRN (Reason: Chest Pain) metoprolol succinate [Toprol XL] 25 MG tablet extended release 24 hr 25 mg PO DAILY prednisone 20 mg tablet 20 mg PO DAILY Qty: 5 0RF Rx Instructions: administer with food or milk Referrals: Mari Hua MD [Primary Care Provider] -
[2022-01-28 12:53] LABS: Troponin I < 0.012 ng/mL (0.01-0.034)
== END 2022-01-28 13:34 | disposition home or self-care (01) ==
PROVIDERS: Emergency Provider Emergency Medicine; Family Provider Family Medicine; PCP Family Medicine
DX: R07.89 Other chest pain (principal); Z20.822 Contact with and (suspected) exposure to COVID-19
CPT/HCPCS: 36415; 71045; 80053; 82550; 82553; 83690; 83735; 84484; 85025; 87635; 93005; 99284; C9803

== ENCOUNTER → 2022-07-29 08:18 | Outpatient (CLI) | payer MEDICAID, OTHER, SELFPAY ==
--- NOTE | 2022-07-29 | DI.US.S_ITS ---
PROCEDURE: US ABDOMEN LIMITED INDICATIONS: Right upper quadrant pain TECHNIQUE: Real-time focused scanning was performed of the abdomen, with image documentation. COMPARISON: [facility], CT, CT IVP, 03/29/2022, 8:55. [facility], CT, CT ABDOMEN PELVIS W CON, 07/07/2021, 18:18. [facility], US, US ABDOMEN LIMITED, 01/23/2019, 13:09. FINDINGS: The liver demonstrates increased size. The liver demonstrates generalized mildly increased echogenicity. This decreases ultrasound sensitivity for detection of hepatic masses. No findings of gallstones or sludge are seen. The gallbladder wall is not thickened, measuring 3 mm or less. No specific pericholecystic fluid is seen. The sonographic Bosch sign is negative. There is no biliary dilatation, the common bile duct measures 6 mm. No significant pancreatic abnormality is seen on these images. IMPRESSION: The gallbladder demonstrates a normal sonographic appearance. No biliary dilatation is seen. Mildly enlarged, mildly fatty infiltrated liver. Dictated by: Justyn Blanchard M.D. on 07/29/2022 at 12:49 Approved by: Justyn Blanchard M.D. on 07/29/2022 at 12:51
== END ==
PROVIDERS: Family Provider Family Medicine; PCP Family Medicine; Referring Provider Registered Nurse; Visit Provider Registered Nurse
DX: R10.11 Right upper quadrant pain; R16.0 Hepatomegaly, not elsewhere classified
CPT/HCPCS: 76705

== ENCOUNTER → 2022-12-28 08:51 | Outpatient (CLI) | payer OTHER, SELFPAY ==
--- NOTE | 2022-12-28 10:33 | DI.CT.S_ITS ---
PROCEDURE: CT ABDOMEN PELVIS W CON INDICATIONS: Right upper quadrant pain TECHNIQUE: After the administration of oral and IV contrast, axial sections were acquired from the lung bases to the pubic symphysis. Coronal and sagittal reformats were performed. For radiation dose reduction, the following was used: automated exposure control, adjustment of mA and/or kV according to patient size. COMPARISON: [facility], CT, CT ABDOMEN PELVIS W CON, 07/07/2021, 18:18. FINDINGS: Image quality: Excellent. Lung bases: Unremarkable. Heart: No significant findings. ABDOMEN: Liver: Unremarkable. Gallbladder: Gallbladder is within normal limits. Biliary ducts: Unremarkable. Pancreas: Unremarkable. Spleen: Unremarkable. Adrenal Glands: Unremarkable. Kidneys and Ureters: Unremarkable. Stomach and Bowel: There is no bowel obstruction. No gross abnormal bowel wall thickening or mesenteric fat stranding. No abscess collection. Sigmoid diverticulosis is seen without sigmoid colon wall thickening or pericolonic fat stranding. Peritoneum: No abnormal intraperitoneal fluid. No free air. Ventral Wall: No hernia. Abdominal Nodes: No retroperitoneal or mesenteric adenopathy by size criteria. Vessels: Aorta and inferior vena cava are normal in size. PELVIS: Pelvic Organs: Unremarkable. Bladder: Unremarkable. Pelvic Nodes: No enlarged lymph nodes. Miscellaneous: No inguinal hernias are seen. Bones: Patient is status post right total hip arthroplasty with significant beam hardening artifacts. Osteoarthritic changes are noted throughout bony pelvis. No gross hardware loosening or failure. Degenerative disc disease throughout lower thoracic and lumbar spine is seen. No acute vertebral body compression fracture. IMPRESSION: 1. No acute inflammatory process is seen in abdomen or pelvis. No finding to explain patient's symptoms. Dictated by: Fernando Arreola M.D. on 12/28/2022 at 12:54 Approved by: Fernando Arreola M.D. on 12/28/2022 at 13:03
== END ==
PROVIDERS: Family Provider Family Medicine; PCP Family Medicine; Referring Provider Family Medicine; Visit Provider Family Medicine
DX: R10.11 Right upper quadrant pain (principal); M51.36 Other intervertebral disc degeneration, lumbar region; M51.34 Other intervertebral disc degeneration, thoracic region; Z96.641 Presence of right artificial hip joint
CPT/HCPCS: 74177

== ENCOUNTER 2023-05-23 13:12 | Emergency (ER) | payer OTHER, SELFPAY ==
[2023-05-23] VITALS (10 sets, daily range): BP systolic 121–154; BP diastolic 66–82; PULSE 61–84; RESP 14–26; TEMP 36.9; O2SAT 94–99; BMI 21.9
--- NOTE | 2023-05-23 13:27 | DI.RAD.S_ITS ---
PROCEDURE: XR CHEST 1V INDICATIONS: NEAR SYNCOPE TECHNIQUE: One view of the chest was acquired. COMPARISON: [facility], CR, XR CHEST 1V, 01/28/2022, 10:25. FINDINGS: Surgical changes and devices: None. Lungs and pleura: Lungs are clear. No pleural effusions or pneumothorax. Mediastinum: Mediastinal contours appear normal. Heart size is normal. Bones and chest wall: No suspicious bony lesions. Overlying soft tissues appear unremarkable. IMPRESSION: No acute cardiopulmonary abnormality is seen. Dictated by: Sue Gray M.D. on 05/23/2023 at 14:41 Approved by: Sue Gray M.D. on 05/23/2023 at 14:42
[2023-05-23 13:52] LABS: Add Manual Diff / Slide Review NO; Basophils Absolute Auto 0 /uL (0-100); Basophils Percent Auto 0.2 % (0-2); Eosinophils Absolute Auto 0 /uL (0-450); Eosinophils Percent Auto 0.6 % (2-4); Hematocrit 37.2 % (41-53); Hemoglobin 12.6 g/dL (13.5-17.5); Lymphocytes Absolute Auto 1400 /uL (1100-4500); Lymphocytes Percent Auto 19.4 % (25-40); Mean Corpuscular HGB Conc 33.8 % (30-36); Mean Corpuscular Hemoglobin 27.8 PG (26-34); Mean Corpuscular Volume 82.2 fL (80-100); Monocytes Absolute Auto 300 /uL (0-900); Monocytes Percent Auto 4.3 % (3-14); Neutrophils Absolute Auto 5600 /uL (1500-7000); Neutrophils Percent Auto 75.5 % (50-75); Platelet Count 349 X10^3/uL (150-400); Red Blood Cell Count 4.52 X10^6/uL (4.5-5.9); Red Cell Distribution Width 15.1 % (11.6-14.8); White Blood Cell Count 7.5 X10^3/uL (4.5-11.0)
[2023-05-23 13:56] LABS: Alanine Aminotransferase 24 IU/L (<50); Albumin 4.3 g/dL (3.5-5.0); Alkaline Phosphatase 102 U/L (38-126); Aspartate Aminotransferase 43 IU/L (17-59); BUN Creatinine Ratio 18.1 (6-22); Bilirubin Total 0.6 mg/dL (0.2-1.3); Blood Urea Nitrogen 15 mg/dL (9-20); Calcium 9.7 mg/dL (8.4-10.2); Carbon Dioxide 25 mmol/L (22-32); Chloride 101 mmol/L (98-107); Creatine Kinase 207 U/L (55-170); Estimated Glomerular Filt Rate > 60 mL/min (>60); Globulin 4.2 g/dL (1.7-4.1); Glucose 126 mg/dL (80-110); HEMOLYSIS < 15 (0-50); Potassium 4.3 mmol/L (3.4-5.1); Sodium 135 mmol/L (137-145); Total Protein 8.5 g/dL (6.3-8.2)
[2023-05-23 14:01] LABS: Urine Volume 10mL (spun)
[2023-05-23] MEDS: SODIUM CHLORIDE 0.9% 1,000 ML 1000 ML IV (14:02)
[2023-05-23 14:03] LABS: Appearance Urine UA CLEAR; Bilirubin Urine UA NEGATIVE (NEGATIVE); Color Urine UA YELLOW; Glucose Urine UA NEGATIVE (Negative); Ketones Urine UA NEGATIVE (NEGATIVE); Leukocyte Esterase Urine UA NEGATIVE (NEGATIVE); Nitrite Urine UA NEGATIVE (Negative); Occult Blood Urine UA 2+ (Negative); Protein Urine UA NEGATIVE (Negative); Specific Gravity Urine UA <=1.005 (1.000-1.035); Urobilinogen Urine UA 0.2 E.U./dL (0.2)
[2023-05-23 14:08] LABS: Troponin I < 0.012 ng/mL (0.01-0.034)
[2023-05-23 14:08] LABS: Ur Creatinine Normal (Normal); Ur Specific Gravity Normal (Normal); Urine pH Normal (Normal)
[2023-05-23 14:09] LABS: UR Morphine/Opiate cutoff 300 Negative (Negative); Urine Amphetamines Negative (Negative); Urine Barbiturates Negative (Negative); Urine Benzodiazepines Negative (Negative); Urine Cocaine Negative (Negative); Urine MDMA Negative (Negative); Urine Methadone Negative (Negative); Urine Methamphetamines Negative (Negative); Urine Oxycodone Negative (Negative); Urine Phencyclidine Negative (Negative); Urine Tetrahydrocannabinol Positive (Negative); Urine Tricyclic Antidepressant Negative (Negative)
[2023-05-23 14:17] LABS: Bacteria Urine None Seen; Culture Indicated Urine Cult Not Indicated; RBC Urine 1-5/HPF (0-5/HPF); Squamous Epithelial Cell Urine None Seen (0-5/HPF); WBC Urine None Seen (0-5/HPF)
--- NOTE | 2023-05-23 14:27 | PC.NURSE ---
patient's niece called and reported that the patient is an active user or heroin and also blues.
--- NOTE | 2023-05-23 14:41 | ED_ITS ---
HPI - Dizziness General Chief Complaint: Dizziness Stated Complaint: Nausea/ Lethergy this am Time Seen by Provider: 05/23/23 13:24 Source: patient and EMS Mode of arrival: EMS History of Present Illness HPI Narrative: 63-year-old male with history of polysubstance abuse presents by EMS from home for lightheadedness. Patient states that he was getting ready to leave for work when he felt very lightheaded and called 911. Family member at bedside states that patient smoked opiates last night, they believe it was fentanyl or heroin. Related Data Home Medications Medication Instructions Recorded Confirmed levothyroxine 50 mcg tablet 50 mcg PO QAM ##0 07/18/17 01/23/19 aspirin 81 mg tablet,delayed 81 mg PO DAILY 01/23/19 01/23/19 release metoprolol succinate 25 mg 25 mg PO DAILY 01/23/19 01/23/19 tablet,extended release 24 hr (Toprol XL) nitroglycerin 0.4 mg sublingual 0.4 mg sublingual PRN PRN Chest 01/23/19 01/23/19 tablet (Nitrostat) Pain Previous Rx's Medication Instructions Recorded fluoxetine 20 mg capsule 40 mg (2 x 20 mg) PO QDAY #60 caps 05/26/17 dicyclomine 10 mg capsule 10 mg PO TID PRN cramping #10 caps 07/01/19 polyethylene glycol 3350 17 17 gram PO DAILY #1 pkg 07/01/19 gram/dose oral powder (Miralax) ondansetron 4 mg disintegrating 4 mg PO Q8H PRN nausea and 07/14/21 tablet vomiting #10 tabs prednisone 20 mg tablet 20 mg PO DAILY #5 tabs 10/26/21 Allergies Allergy/AdvReac Type Severity Reaction Status Date / Time morphine [MORPHINE] Allergy Severe CONVULSIONS, Verified 01/23/19 12:23 TROUBLE BREATHING codeine [CODEINE] Allergy Mild RASH, Verified 01/23/19 12:23 HIVES, ITCHING meperidine [MEPERIDINE] Allergy Mild NAUSEA, Verified 01/23/19 12:23 ITCHING, HIVES ibuprofen [IBUPROFEN] Allergy Unknown HIVES Verified 01/23/19 12:23 naproxen [NAPROXEN] Allergy Unknown HIVES Verified 01/23/19 12:23 Review of Systems Review of Systems Narrative: Otherwise negative Patient History Medical History Degenerative disc disease Depression with anxiety Chronic back pain Hypothyroidism (07/21/17) Coronary arteriosclerosis in [place] artery (03/15/13) Surgical History History of ear surgery History of bilateral total hip arthroplasty Social History Smoking Status: Current every day smoker alcohol intake: former substance use type: opiates Smoking Status: Current every day smoker tobacco type: cigarettes alcohol intake frequency: 0-2 drinks per day Substance Use Type: marijuana and heroin Exam Initial Vital Signs Initial Vital Signs: Vital Signs Temperature 98.5 F 05/23/23 13:20 Pulse Rate 70 05/23/23 13:20 Respiratory Rate 14 05/23/23 13:20 Blood Pressure 133/81 05/23/23 13:20 Pulse Oximetry 97 05/23/23 13:20 Oxygen Delivery Method Room Air 05/23/23 13:20 ?Const: Awake, alert, appears older than stated age, chronically unwell Cardiac: regular rate, regular rhythm RESP: unlabored, clear bilaterally, no wheezing GI: Atraumatic, soft, nontender, nondistended, no rebound, no guarding MSK: Atraumatic, full range of motion, pulses equal Skin: Warm, Dry, intact, no rashes Neuro: AO x3, CN II-XII grossly intact, moves all extremities Psych: affect normal, mood normal, not suicidal, not homicidal Course Course Course Narrative: lightheadedness while getting ready for work. Patient appears tired but in no acute distress, appears chronically unwell but not toxic. Laboratory work is unremarkable, no acute derangements in hemoglobin, WBC count, or electrolytes. Troponin undetectable. EKG normal sinus rhythm without arrhythmia or concerning findings. Chest x-ray and head CT negative. Patient informed of all lab and imaging findings, he received IV fluids and subsequently was ambulatory throughout the emergency department without difficulty. Patient counseled to avoid smoking narcotics and discharged home in stable condition. Orders Ordered: Discontinued Medications Sodium Chloride (Normal Saline 0.9%) 1,000 mls @ 1,000 mls/hr IV BOLUS ONE Stop: 05/23/23 14:25 Last Infusion: 05/23/23 15:14 Dose: Infused Documented By: Admin: 05/23/23 14:02 Dose: 1,000 mls/hr Documented By: BRANDEN Sodium Chloride (Normal Saline 0.9%) 1,000 mls @ 1,000 mls/hr IV BOLUS ONE Stop: 05/23/23 16:17 Last Admin: 05/23/23 15:34 Dose: Not Given Documented By: BRANDEN Vital Signs Vital signs: Vital Signs - 8 hr 05/23/23 13:20 05/23/23 14:19 05/23/23 14:30 Temperature 98.5 F Pulse Rate 70 67 Respiratory Rate 14 22 Blood Pressure 133/81 121/69 Pulse Oximetry 97 95 Oxygen Delivery Method Room Air 05/23/23 14:30 05/23/23 14:55 05/23/23 14:55 Temperature Pulse Rate 63 71 Respiratory Rate 25 H 26 H Blood Pressure 154/74 H Pulse Oximetry 94 99 Oxygen Delivery Method 05/23/23 15:00 05/23/23 15:00 Temperature Pulse Rate 61 Respiratory Rate 24 Blood Pressure 134/80 Pulse Oximetry 97 Oxygen Delivery Method MDM - Dizziness Differential Diagnosis Differential diagnosis: Likely orthostatic hypotension and other ( Hyponatremia, dehydration) Lab Data 05/23/23 13:22 05/23/23 13:22 Labs: Lab Results 05/23/23 05/23/23 05/23/23 Range/Units 13:22 13:53 13:53 WBC 7.5 (4.5-11.0) X10^3/uL RBC 4.52 (4.5-5.9) X10^6/uL Hgb 12.6 L (13.5-17.5) g/dL Hct 37.2 L (41-53) % MCV 82.2 (80-100) fL MCH 27.8 (26-34) PG MCHC 33.8 (30-36) % RDW 15.1 H (11.6-14.8) % Plt Count 349 (150-400) X10^3/uL Neut % (Auto) 75.5 H (50-75) % Lymph % (Auto) 19.4 L (25-40) % [place] % (Auto) 4.3 (3-14) % Eos % (Auto) 0.6 L (2-4) % Baso % (Auto) 0.2 (0-2) % Neut # (Auto) 5600 (0595-3013) /uL Lymph # (Auto) 1400 (0088-0819) /uL [place] # (Auto) 300 (0-900) /uL Eos # (Auto) 0 (0-450) /uL Baso # (Auto) 0 (0-100) /uL Sodium 135 L (137-145) mmol/L Potassium 4.3 (3.4-5.1) mmol/L Chloride 101 (98-107) mmol/L Carbon Dioxide 25 (22-32) mmol/L BUN 15 (9-20) mg/dL Creatinine 0.83 (0.66-1.25) mg/dL Estimated GFR > 60 (>60) mL/min BUN/Creatinine Ratio 18.1 (6-22) Glucose 126 H (80-110) mg/dL Calcium 9.7 (8.4-10.2) mg/dL Total Bilirubin 0.6 (0.2-1.3) mg/dL AST 43 (17-59) IU/L ALT 24 (<50) IU/L Alkaline Phosphatase 102 (38-126) U/L Total Creatine Kinase 207 H (55-170) U/L Troponin I < 0.012 (0.01-0.034) ng/mL Total Protein 8.5 H (6.3-8.2) g/dL Albumin 4.3 (3.5-5.0) g/dL Globulin 4.2 H (1.7-4.1) g/dL Albumin/Globulin Ratio 1.0 (1.0-2.8) Urine Color Yellow Urine Appearance Clear Urine pH 7.0 Normal (4.5-8.0) Ur Specific [place] <=1.005 (1.000-1.035) Urine Protein Negative (Negative) Urine Glucose (UA) Negative (Negative) g/dL Urine Ketones Negative (NEGATIVE) Urine Occult Blood 2+ H (Negative) Urine Nitrate Negative (Negative) Urine Bilirubin Negative (NEGATIVE) Urine Urobilinogen 0.2 (0.2) E.U./dL Ur Leukocyte Esterase Negative (NEGATIVE) Urine RBC 1-5/hpf (0-5/HPF) Urine WBC None seen (0-5/HPF) Ur Squamous Epith Cells None seen (0-5/HPF) Urine Bacteria None seen (None) Ur Culture Indicated? Cult not indicated Vol Urine Centrifuged 10ml (spun) U Opiates 300ng/mL cut Negative (Negative) Ur Oxycodone Screen Negative (Negative) Urine Methadone Screen Negative (Negative) Ur Barbiturates Screen Negative (Negative) U Tricyclic Antidepress Negative (Negative) Ur Phencyclidine Scrn Negative (Negative) Ur Amphetamines Screen Negative (Negative) U Methamphetamines Scrn Negative (Negative) Ur MDMA Scrn (Ecstasy) Negative (Negative) U Benzodiazepines Scrn Negative (Negative) Urine Cocaine Screen Negative (Negative) U Marijuana (THC) Screen Positive H (Negative) Urine Specific [place] Normal (Normal) Ur Creatinine Normal (Normal) Discharge Plan Departure Patient Disposition: Home Clinical Impression: Light-headedness, Opiate use Instructions: DI for Dizziness-Nonvertigo Prescriptions: No Action fluoxetine 20 MG capsule 40 mg PO QDAY Qty: 60 2RF levothyroxine 50 MCG tablet 50 mcg PO QAM Qty: 0 polyethylene glycol 3350 [Miralax] 17 gram/dose powder 17 gram PO DAILY Qty: 1 0RF dicyclomine 10 mg capsule 10 mg PO TID PRN (Reason: cramping) Qty: 10 0RF ondansetron 4 mg tablet,disintegrating 4 mg PO Q8H PRN (Reason: nausea and vomiting) Qty: 10 0RF aspirin 81 mg Tablet,Delayed Release (Dr/Ec) 81 mg PO DAILY nitroglycerin [Nitrostat] 0.4 MG tablet, sublingual 0.4 mg Sublingual PRN PRN (Reason: Chest Pain) metoprolol succinate [Toprol XL] 25 MG tablet extended release 24 hr 25 mg PO DAILY prednisone 20 mg tablet 20 mg PO DAILY Qty: 5 0RF Rx Instructions: administer with food or milk Referrals: Mari Hua MD [Primary Care Provider] - Stand Alone Forms: Patient Portal/API
--- NOTE | 2023-05-23 14:56 | PC.NURSE ---
patient was able to ambulate 1 lap around the department approx 230 ft. His HR was at 88 and his o2 sat stayed at 98% on RA. He was off balance and a little and had to have help staying in a straight line on the last 50 ft. He denied chest pain or discomfort. His niece who lives with him says hes more off balance than normal episodes and his speech is slower than normal but clear and oriented. Befast was negative. provider updated.
--- NOTE | 2023-05-23 15:01 | PC.NURSE ---
the niece stated that he was cleaning last night with chemical and it was really strong. She doesn't know what he was using and he cant recall either. Lysol, or bleach
--- NOTE | 2023-05-23 15:09 | DI.CT.S_ITS ---
PROCEDURE: CT HEAD/BRAIN WO CON INDICATIONS: LIGHTHEADED/FEELING OFF-BALANCE TECHNIQUE: Noncontrast 4.5 mm thick angled axial sections acquired from the foramen magnum to the vertex, with coronal and sagittal reformats. For radiation dose reduction, the following was used: automated exposure control, adjustment of mA and/or kV according to patient size. COMPARISON: [facility], CT, CT HEAD/BRAIN WO CON, 11/04/2019, 19:50. FINDINGS: Image quality: Diagnostic. CSF spaces: Basal cisterns are patent. No extra-axial fluid collections. The ventricles are symmetric in size and shape. Brain: No intracranial bleeds or masses. There is cerebral volume loss for age, with resultant ventricular and sulcal prominence. There are periventricular and deep white matter chronic small vessel ischemic changes. Skull and face: Calvarium and visualized facial bones appear intact, without suspicious lesions. Sinuses: Visualized sinuses and mastoids are clear. IMPRESSION: Mild age-related change. No acute intracranial process. Dictated by: Gilmar Daniels M.D. on 05/23/2023 at 15:36 Approved by: Gilmar Daniels M.D. on 05/23/2023 at 15:36
--- NOTE | 2023-05-23 15:34 | PC.NURSE ---
there was a miscommunication and the patient's IV was removed prior to second IV bag. Provider notified and IV fluids were canceled. PO fluids encouraged. No new order for IV was given.
--- NOTE | 2023-05-23 17:15 | PC.NURSE ---
Pt assisted in ambulation trial. Pt ambulated independently, pulse remained in the 80's and SPO2 98% RA. Pt denies dizziness. Dr Kerr updated and pt is ready for discharge.
== END 2023-05-23 17:22 | disposition home or self-care (01) ==
PROVIDERS: Emergency Provider Emergency Medicine; Family Provider Family Medicine; PCP Family Medicine
DX: R42 Dizziness and giddiness (principal); F11.90 Opioid use, unspecified, uncomplicated
CPT/HCPCS: 70450; 71045; 80053; 80305; 81001; 82550; 84484; 85025; 96360; 99284

== ENCOUNTER → 2024-05-17 14:05 | Outpatient (CLI) | payer OTHER, SELFPAY ==
--- NOTE | 2024-05-17 14:10 | DI.RAD.S_ITS ---
PROCEDURE: XR FOOT LT MIN 3V INDICATIONS: FOOT PAIN TECHNIQUE: 3 views of the foot were acquired. COMPARISON: None. 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 A 6 mm calcification posterior to ankle mortise may represent a small avulsion fracture and could represent a loose body in the ankle mortise. Joints: Moderate ankle and posterior talocalcaneal degeneration appreciated Soft tissues: No soft tissue swelling, calcification or mass. IMPRESSION: Chronic findings -as described Dictated by: Juan Manuel Jones M.D. on 05/18/2024 at 10:43 Approved by: Juan Manuel Jones M.D. on 05/18/2024 at 10:45
--- NOTE | 2024-05-17 14:10 | DI.RAD.S_ITS ---
PROCEDURE: XR ANKLE LT MIN 3V INDICATIONS: Pain TECHNIQUE: 3 views of the ankle were acquired. COMPARISON: None FINDINGS: Bones: Displaced old ununited avulsion fracture of the medial malleolus appreciated. This may function as a loose body. Tibiotalar and talocalcaneal joints: There is asymmetric widening of the superior medial and lateral ankle mortise suggesting medial instability. Moderate ankle degenerative change noted. Moderate ankle effusion noted. There is moderate degeneration the posterior facet talocalcaneal joint Soft tissues: Diffuse soft swelling noted. IMPRESSION: Asymmetric widening of the superior medial and lateral ankle mortise suggesting medial instability. Suspect deltoid ligament instability. Please correlate with medial instability on physical exam. Consider ankle MRI for more specific evaluation of the ligaments. Small avulsion fracture medial malleolar tip which displaced posterior medially and may function as a loose body. Moderate ankle effusion noted .Dictated by: Juan Manuel Jones M.D. on 05/18/2024 at 10:45 Approved by: Juan Manuel Jones M.D. on 05/18/2024 at 10:49
== END ==
PROVIDERS: Family Provider Family Medicine; PCP Family Medicine; Referring Provider Family Medicine; Visit Provider Family Medicine
DX: S82.52XA Displaced fracture of medial malleolus of left tibia, initial encounter for closed fracture; M20.42 Other hammer toe(s) (acquired), left foot; M25.472 Effusion, left ankle; M79.672 Pain in left foot; M25.572 Pain in left ankle and joints of left foot
CPT/HCPCS: 73610; 73630